=== PATIENT | female | born 1930 | race Caucasian/White ===

== ENCOUNTER 2017-12-22 10:34 | Emergency (ER) | payer MEDICARE ==
[2017-12-22] MEDS ORDERED: SODIUM CHLORIDE 0.9% 500 ML IV STA (11:23)
--- NOTE | 2017-12-22 11:26 | ED ---
General Adult HPI - General Chief complaint: Weakness Stated complaint: weakness Time Seen by Provider: 12/22/17 10:45 Source: patient, EMS, RN notes reviewed Mode of arrival: EMS Limitations: no limitations - History of Present Illness Initial comments: This is an 87-year-old female presents emergency Department complaining of feeling fatigued since Monday. Patient states she is a generally weak and tired. Patient states she has no fever she has no difficulty breathing or shortness of breath. Patient denies any chest pain. Patient denies any abdominal pain patient denies nausea or vomiting. Patient states she has somewhat of a decreased appetite this is still eating. Patient denies any injury or fall. Patient denies any dysuria hematuria urinary frequency. Patient denies headache patient denies numbness weakness - Related Data Home Medications Medication Instructions Recorded Confirmed Acetaminophen Tab [Tylenol Tab] 500 mg PO BID@0700,2100 12/22/17 12/22/17 Aspirin 81 mg PO DAILY@0900 12/22/17 12/22/17 Cholecalciferol [Vitamin D3] 1,000 unit PO DAILY@0900 12/22/17 12/22/17 Glimepiride [Amaryl] 2 mg PO BID@0900,1700 12/22/17 12/22/17 Levothyroxine Sodium [Synthroid] 25 mcg PO DAILY@0700 12/22/17 12/22/17 Losartan Potassium [Cozaar] 100 mg PO DAILY@0900 12/22/17 12/22/17 Multivitamins, Thera [Multivitamin 1 tab PO DAILY@0900 12/22/17 12/22/17 (formulary)] [place]-3 Fatty Acids/Fish Oil [Fish 1 cap PO BID@0900,1700 12/22/17 12/22/17 Oil 1,000 mg Softgel] metFORMIN HCL ER [Glucophage Xr] 500 mg PO DAILY@1700 12/22/17 12/22/17 Allergies Allergy/AdvReac Type Severity Reaction Status Date / Time meperidine [From Demerol] Allergy Unknown Verified 12/22/17 10:51 Sulfa (Sulfonamide Allergy Unknown Verified 12/22/17 10:51 Antibiotics) Review of Systems ROS Statement: Those systems with pertinent positive or pertinent negative responses have been documented in the HPI. ROS Other: All systems not noted in ROS Statement are negative. Past Medical History Past Medical History: Diabetes Mellitus, Hypertension, Osteoarthritis (OA), Thyroid Disorder History of Any Multi-Drug Resistant Organisms: None Reported Past Surgical History: Cholecystectomy, Orthopedic Surgery Additional Past Surgical History / Comment(s): cataract, bilateral knees, neck surgery Past Psychological History: No Psychological Hx Reported Smoking Status: Never smoker Past Alcohol Use History: None Reported Past Drug Use History: None Reported General Exam - General Exam Comments Initial Comments: GENERAL: Patient is well-developed and well-nourished. Patient is nontoxic and well- hydrated and is in no acute distress. ENT: Neck is soft and supple. No significant lymphadenopathy is noted. Oropharynx is clear. Moist mucous membranes. Neck has full range of motion without eliciting any pain. EYES: The sclera were anicteric and conjunctiva were pink and moist. Extraocular movements were intact and pupils were equal round and reactive to light. Eyelids were unremarkable. PULMONARY: Unlabored respirations. Good breath sounds bilaterally. No audible rales rhonchi or wheezing was noted. CARDIOVASCULAR: There is a regular rate and rhythm without any murmurs gallops or rubs. ABDOMEN: Soft and nontender with normal bowel sounds. No palpable organomegaly was noted. There is no palpable pulsatile mass. SKIN: Skin is clear with no lesions or rashes and otherwise unremarkable. NEUROLOGIC: Patient is alert and oriented x3. Cranial nerves II through XII are grossly intact. Motor and sensory are also intact. Normal speech, volume and content. Symmetrical smile. MUSCULOSKELETAL: Normal extremities with adequate strength and full range of motion. No lower extremity swelling or edema. No calf tenderness. LYMPHATICS: No significant lymphadenopathy is noted PSYCHIATRIC: Normal psychiatric evaluation. Limitations: no limitations Course Vital Signs 12/22/17 12/22/17 12/22/17 10:45 11:10 12:46 Temperature 98.4 F 99.2 F Pulse Rate 72 76 Respiratory 16 20 18 Rate Blood Pressure 216/94 196/109 O2 Sat by Pulse 94 L 92 L Oximetry Medical Decision Making - Medical Decision Making EKG shows normal sinus rhythm at 95 bpm. It was 170 QRS is 60 QT interval 358 QTC is 449. Patient's EKG shows no ST segment elevation or depression or T wave abnormalities are noted. - Lab Data Result diagrams: 12/22/17 10:55 12/22/17 10:55 Lab Results 12/22/17 12/22/1712/22/18 Range/Units 10:55 10:55 10:55 WBC 6.0 (3.8-10.6) k/uL RBC 4.78 (3.80-5.40) m/uL Hgb 14.7 (11.4-16.0) gm/dL Hct 43.0 (34.0-46.0) % MCV 89.9 (80.0-100.0) fL MCH 30.8 (25.0-35.0) pg MCHC 34.2 (31.0-37.0) g/dL RDW 14.3 (11.5-15.5) % Plt Count 266 (150-450) k/uL Neutrophils % 72 % Lymphocytes % 18 % Monocytes % 6 % Eosinophils % 2 % Basophils % 0 % Neutrophils # 4.3 (1.3-7.7) k/uL Lymphocytes # 1.1 (1.0-4.8) k/uL Monocytes # 0.4 (0-1.0) k/uL Eosinophils # 0.1 (0-0.7) k/uL Basophils # 0.0 (0-0.2) k/uL Poikilocytosis Slight PT (9.0-12.0) sec INR (<1.2) APTT (22.0-30.0) sec Sodium 138 (137-145) mmol/L Potassium 3.8 (3.5-5.1) mmol/L Chloride 100 (98-107) mmol/L Carbon Dioxide 29 (22-30) mmol/L Anion Gap 9 mmol/L BUN 18 H (7-17) mg/dL Creatinine 0.30 L (0.52-1.04) mg/dL Est GFR (CKD-EPI)AfAm >90 (>60 ml/min/1.73 sqM) Est GFR (CKD-EPI)NonAf >90 (>60 ml/min/1.73 sqM) Glucose 239 H (74-99) mg/dL Plasma Lactic Acid Aly (0.7-2.0) mmol/L Calcium 9.7 (8.4-10.2) mg/dL Magnesium 1.7 (1.6-2.3) mg/dL Total Bilirubin 0.9 (0.2-1.3) mg/dL AST 24 (14-36) U/L ALT 31 (9-52) U/L Alkaline Phosphatase 61 (38-126) U/L Total Creatine Kinase 32 (30-135) U/L CK-MB (CK-2) 1.7 (0.0-2.4) ng/mL CK-MB (CK-2) Rel Index 5.3 Troponin I <0.012 (0.000-0.034) ng/mL Total Protein 6.2 L (6.3-8.2) g/dL Albumin 3.8 (3.5-5.0) g/dL TSH 1.750 (0.465-4.680) mIU/L Free T4 1.29 (0.78-2.19) ng/dL Urine Color Urine Appearance (Clear) Urine pH (5.0-8.0) Ur Specific [employer] (1.001-1.035) Urine Protein (Negative) Urine Glucose (UA) (Negative) Urine Ketones (Negative) Urine Blood (Negative) Urine Nitrite (Negative) Urine Bilirubin (Negative) Urine Urobilinogen (<2.0) mg/dL Ur Leukocyte Esterase (Negative) Urine RBC (0-5) /hpf Urine WBC (0-5) /hpf Ur Squamous Epith Cells (0-4) /hpf Amorphous Sediment (None) /hpf Urine Mucus (None) /hpf 12/22/17 12/22/17 12/22/17 Range/Units 10:55 10:55 12:05 WBC (3.8-10.6) k/uL RBC (3.80-5.40) m/uL Hgb (11.4-16.0) gm/dL Hct (34.0-46.0) % MCV (80.0-100.0) fL MCH (25.0-35.0) pg MCHC (31.0-37.0) g/dL RDW (11.5-15.5) % Plt Count (150-450) k/uL Neutrophils % % Lymphocytes % % Monocytes % % Eosinophils % % Basophils % % Neutrophils # (1.3-7.7) k/uL Lymphocytes # (1.0-4.8) k/uL Monocytes # (0-1.0) k/uL Eosinophils # (0-0.7) k/uL Basophils # (0-0.2) k/uL Poikilocytosis PT 9.7 (9.0-12.0) sec INR 1.0 (<1.2) APTT 22.4 (22.0-30.0) sec Sodium (137-145) mmol/L Potassium (3.5-5.1) mmol/L Chloride (98-107) mmol/L Carbon Dioxide (22-30) mmol/L Anion Gap mmol/L BUN (7-17) mg/dL Creatinine (0.52-1.04) mg/dL Est GFR (CKD-EPI)AfAm (>60 ml/min/1.73 sqM) Est GFR (CKD-EPI)NonAf (>60 ml/min/1.73 sqM) Glucose (74-99) mg/dL Plasma Lactic Acid Aly 1.2 (0.7-2.0) mmol/L Calcium (8.4-10.2) mg/dL Magnesium (1.6-2.3) mg/dL Total Bilirubin (0.2-1.3) mg/dL AST (14-36) U/L ALT (9-52) U/L Alkaline Phosphatase (38-126) U/L Total Creatine Kinase (30-135) U/L CK-MB (CK-2) (0.0-2.4) ng/mL CK-MB (CK-2) Rel Index Troponin I (0.000-0.034) ng/mL Total Protein (6.3-8.2) g/dL Albumin (3.5-5.0) g/dL TSH (0.465-4.680) mIU/L Free T4 (0.78-2.19) ng/dL Urine Color Yellow Urine Appearance Cloudy H (Clear) Urine pH 6.5 (5.0-8.0) Ur Specific [employer] 1.015 (1.001-1.035) Urine Protein Trace H (Negative) Urine Glucose (UA) 1+ H (Negative) Urine Ketones Negative (Negative) Urine Blood Negative (Negative) Urine Nitrite Positive H (Negative) Urine Bilirubin Negative (Negative) Urine Urobilinogen 2.0 (<2.0) mg/dL Ur Leukocyte Esterase Negative (Negative) Urine RBC 2 (0-5) /hpf Urine WBC 2 (0-5) /hpf Ur Squamous Epith Cells <1 (0-4) /hpf Amorphous Sediment Few H (None) /hpf Urine Mucus Rare H (None) /hpf Disposition Clinical Impression: Fatigue, Hypertension Disposition: HOME SELF-CARE Condition: Good Instructions: Fatigue (ED) Is patient prescribed a controlled substance at d/c from ED?: No Referrals: None,Stated [Primary Care Provider] - 1-2 days Time of Disposition: 13:47
[2017-12-22 11:52] LABS: Basophils % (A) 0 %; Eosinophils # (A) 0.1 k/uL (0-0.7); Eosinophils % (A) 2 %; HGB 14.7 gm/dL (11.4-16.0); Lymphocytes # (A) 1.1 k/uL (1.0-4.8); Lymphocytes % (A) 18 %; MCH 30.8 pg (25.0-35.0); MCHC 34.2 g/dL (31.0-37.0); MCV 89.9 fL (80.0-100.0); Mean Platelet Volume 6.4; Monocytes # (A) 0.4 k/uL (0-1.0); Monocytes % (A) 6 %; Neutrophils # (A) 4.3 k/uL (1.3-7.7); Neutrophils % (A) 72 %; Platelet Count 266 k/uL (150-450); Poikilocytosis Slight; RBC 4.78 m/uL (3.80-5.40); RDW 14.3 % (11.5-15.5)
[2017-12-22 12:07] LABS: ALT 31 U/L (9-52); AST 24 U/L (14-36); Albumin 3.8 g/dL (3.5-5.0); Alkaline Phosphatase 61 U/L (38-126); Anion Gap 9 mmol/L; Blood Urea Nitrogen 18 mg/dL (7-17); Calcium 9.7 mg/dL (8.4-10.2); Carbon Dioxide 29 mmol/L (22-30); Chloride 100 mmol/L (98-107); Glucose 239 mg/dL (74-99); Magnesium 1.7 mg/dL (1.6-2.3); Potassium 3.8 mmol/L (3.5-5.1); Sodium 138 mmol/L (137-145); Total Bilirubin 0.9 mg/dL (0.2-1.3); Total Protein 6.2 g/dL (6.3-8.2)
[2017-12-22 12:12] LABS: Creatine Kinase 32 U/L (30-135)
[2017-12-22 12:22] LABS: T4, Free (Free Thyroxine) 1.29 ng/dL (0.78-2.19)
[2017-12-22 12:26] LABS: Creatine Kinase MB 1.7 ng/mL (0.0-2.4); Troponin I <0.012 ng/mL (0.000-0.034)
[2017-12-22 12:28] LABS: Partial Thromboplastin Time 22.4 sec (22.0-30.0); Prothrombin Time 9.7 sec (9.0-12.0)
[2017-12-22 12:28] LABS: Amorphous Sediment,Urine Few /hpf; Appearance,Urine Cloudy (Clear); Bilirubin,Urine Negative (Negative); Blood,Urine Negative (Negative); Color,Urine Yellow; Glucose,Urine (UA) 1+ (Negative); Ketones,Urine Negative (Negative); Leukocyte Esterase,Urine Negative (Negative); Mucus,Urine Rare /hpf; Nitrite,Urine Positive (Negative); PH, Urine 6.5 (5.0-8.0); Protein,Urine Trace (Negative); RBC,Urine 2 /hpf (0-5); Specific Gravity,Urine 1.015 (1.001-1.035); Squamous Epithelial Cell,Urine <1 /hpf (0-4); WBC,Urine 2 /hpf (0-5)
--- NOTE | 2017-12-22 12:35 | XR ---
EXAMINATION TYPE: XR chest 2V DATE OF EXAM: 12/22/2017 COMPARISON: NONE HISTORY: Lethargic and weakness with epigastric pain TECHNIQUE: Frontal and lateral views of the chest are obtained. FINDINGS: Minimal right basilar linear subsegmental atelectasis seen at the right hemidiaphragm. The re is no focal air space opacity, pleural effusion, or pneumothorax seen. The cardiac silhouette siz e is upper limits of normal. There is diffuse osseous demineralization with poor visualization of the thoracic spine. Right acromioclavicular arthropathy is noted. Healed posterior right upper rib fract ures are noted. There is pulmonary hyperinflation suggesting underlying COPD. IMPRESSION: Minimal right basilar subsegmental atelectasis otherwise no acute cardiopulmonary proces s.
[2017-12-22] MEDS: hydrALAZINE HCL 20 MG/ML 1 ML VIAL IVP STA ×2 (12:43→13:37)
[2017-12-22 12:48] VITALS: BP 196/109; PULSE 76; RESP 18; TEMP 99.2
== END 2017-12-22 15:50 | disposition home or self-care (01) ==
LOC: EC 10:34
DX: I10 Essential (primary) hypertension (principal); R53.83 Other fatigue; R53.1 Weakness; R63.8 Other symptoms and signs concerning food and fluid intake; E11.9 Type 2 diabetes mellitus without complications; M19.90 Unspecified osteoarthritis, unspecified site; E07.9 Disorder of thyroid, unspecified; Z79.82 Long term (current) use of aspirin; Z79.84 Long term (current) use of oral hypoglycemic drugs; Z79.891 Long term (current) use of opiate analgesic; Z79.899 Other long term (current) drug therapy; Z88.2 Allergy status to sulfonamides; Z88.5 Allergy status to narcotic agent
CPT/HCPCS: 36415; 93005; 84439; 80053; 82550; 82553; 83605; 83735; 84443; 84484; 85025; 85610; 85730; 81001; 87086; 87077; 87186; 71046; 99285; 96374; 96376; 96361; J0360

== ENCOUNTER 2018-02-21 22:31 | Inpatient (IN) | payer MEDICARE ==
[2018-02-21] MEDS ORDERED: NALOXONE 0.4 MG/ML 1 ML VIAL IV PRN (23:05)
--- NOTE | 2018-02-21 23:12 | ED ---
General Adult HPI - General Chief complaint: Extremity Injury, Lower Stated complaint: Lt Femur Fracture Time Seen by Provider: 02/21/18 22:36 Source: patient, EMS, RN notes reviewed, old records reviewed (Transfer records reviewed) Mode of arrival: EMS Limitations: no limitations - History of Present Illness Initial comments: Patient is a pleasant 87-year-old female presenting to the emergency Department as a transfer from [facility]. Patient did have a fall when she slid out of the chair after lunch today. Patient complains of discomfort above her left knee. Patient was not able to ambulate following the fall. Patient does have history of previous left knee surgery. Patient states she did sustain laceration of the left ear which was repaired. Patient did have evaluation done at [facility] including computed tomography scan of the head and chest. Chest CT does have some concern for pneumonia. Patient does not meet sepsis criteria. Patient denies any cough or dyspnea. - Related Data Home Medications Medication Instructions Recorded Confirmed Acetaminophen Tab [Tylenol Tab] 500 mg PO BID@0700,2100 12/22/17 12/22/17 Aspirin 81 mg PO DAILY@0912/22/17 12/22/17 Cholecalciferol [Vitamin D3] 1,000 unit PO DAILY@0912/22/17 12/22/17 Glimepiride [Amaryl] 2 mg PO BID@0900,1700 12/22/17 12/22/17 Levothyroxine Sodium [Synthroid] 25 mcg PO DAILY@0700 12/22/17 12/22/17 Losartan Potassium [Cozaar] 100 mg PO DAILY@0912/22/17 12/22/17 Multivitamins, Thera [Multivitamin 1 tab PO DAILY@0912/22/17 12/22/17 (formulary)] [place]-3 Fatty Acids/Fish Oil [Fish 1 cap PO BID@0900,1700 12/22/17 12/22/17 Oil 1,000 mg Softgel] metFORMIN HCL ER [Glucophage Xr] 500 mg PO DAILY@1700 12/22/17 12/22/17 Allergies Allergy/AdvReac Type Severity Reaction Status Date / Time meperidine [From Demerol] Allergy Unknown Verified 02/21/18 22:39 Sulfa (Sulfonamide Allergy Unknown Verified 02/21/18 22:39 Antibiotics) Review of Systems ROS Statement: Those systems with pertinent positive or pertinent negative responses have been documented in the HPI. ROS Other: All systems not noted in ROS Statement are negative. Constitutional: Denies: fever Eyes: Denies: eye pain ENT: Denies: ear pain Respiratory: Denies: cough Cardiovascular: Denies: chest pain Endocrine: Denies: fatigue Gastrointestinal: Denies: abdominal pain Genitourinary: Denies: dysuria Musculoskeletal: Denies: back pain Skin: Denies: rash Neurological: Denies: weakness Past Medical History Past Medical History: Diabetes Mellitus, Hypertension, Osteoarthritis (OA), Thyroid Disorder Additional Past Medical History / Comment(s): pneumonia, UTI 02/21/18 History of Any Multi-Drug Resistant Organisms: None Reported Past Surgical History: Cholecystectomy, Orthopedic Surgery Additional Past Surgical History / Comment(s): cataract, bilateral knees, neck surgery Past Psychological History: No Psychological Hx Reported Smoking Status: Never smoker Past Alcohol Use History: None Reported Past Drug Use History: None Reported General Exam Limitations: no limitations General appearance: alert, in no apparent distress Head exam: Present: normocephalic Eye exam: Present: normal appearance, PERRL ENT exam: Present: normal oropharynx, other (Left ear laceration) Neck exam: Present: normal inspection. Absent: tenderness Respiratory exam: Present: normal lung sounds bilaterally Cardiovascular Exam: Present: regular rate, normal rhythm Expanded Peripheral pulses: 2+: Dorsalis Pedis (R), Dorsalis Pedis (L) GI/Abdominal exam: Present: soft. Absent: tenderness Extremities exam: Present: other (Knee immobilizer present on left leg. Patient does have tenderness just above the left knee.) Neurological exam: Present: alert, oriented X3, CN II-XII intact. Absent: motor sensory deficit Psychiatric exam: Present: normal affect, normal mood Skin exam: Present: normal color Course Vital Signs 02/21/18 22:37 Temperature 99.2 F Pulse Rate 87 Respiratory 18 Rate Blood Pressure 162/93 O2 Sat by Pulse 97 Oximetry Medical Decision Making - Medical Decision Making Patient was made aware of plan. Patient states her primary care physician is Dr. Dey, who took over for Dr. Miranda. Case was discussed with practitioner next, who will admit for Dr. Bowen with medical consult. Dr. Moon will be consult at secondary to covering for Dr. Miranda. Disposition Clinical Impression: Femoral distal fracture Disposition: ADMITTED IP TO THIS HOSP Is patient prescribed a controlled substance at d/c from ED?: No Referrals: Nonstaff,Physician [Primary Care Provider] - 1-2 days Decision Time: 23:12
--- NOTE | 2018-02-22 00:08 | CT ---
EXAMINATION TYPE: CT knee LT wo con DATE OF EXAM: 02/21/2018 COMPARISON: None HISTORY: left distal femur fracture CT DLP: 238.8 mGycm Automated exposure control for dose reduction was used. FINDINGS: Multiple axial sections were obtained from the distal femur to the proximal tibia with no contrast. There is nondisplaced oblique fracture through the distal shaft of the left femur. There is left knee prosthesis which appears in anatomic position. Fracture line extends to the medial femoral metaphysi s. I do not see fracture line involving the prosthesis. There is metal artifact obscuring the bone de tail at the prosthesis. The proximal tibia and fibula appear intact. There is generalized osteopenia. There is vascular calcification. There is knee joint effusion with fluid level consistent with hemar throsis. IMPRESSION: NONDISPLACED FRACTURE DISTAL SHAFT OF THE FEMUR EXTENDING TO THE METAPHYSIS. KNEE JOINT MODERATE SIZE D EFFUSION WITH HEMARTHROSIS.
[2018-02-22] MEDS: MORPHINE SULFATE 4 MG/ML SYRINGE IV PRN ×3 (02:47→17:32)
[2018-02-22] MEDS: SODIUM CHLORIDE 0.9% 1,000 ML IV SCH ×2 (02:47→21:09)
[2018-02-22 04:00] VITALS: BMI 20.5
[2018-02-22 07:14] LABS: Glucose,Whole Blood 340 mg/dL (75-99)
[2018-02-22] MEDS ORDERED: INSULIN ASPART 100 UNIT/ML 1 ML 10 ML VIAL SQ SCH (07:45)
[2018-02-22] MEDS: PANTOPRAZOLE 40 MG/10 ML VIAL IV SCH (09:10)
[2018-02-22 11:49] LABS: Glucose,Whole Blood 210 mg/dL (75-99)
[2018-02-22] MEDS: INSULIN ASPART 100 UNIT/ML 1 ML 10 ML VIAL SQ SCH ×3 (13:05→21:09)
--- NOTE | 2018-02-22 14:00 | P.HPOR ---
History of Present Illness H&P Date: 02/22/18 Chief Complaint: Left distal femur fracture Patient is an 87-year-old female who initially presented to [facility] for evaluation of the left leg injury. Patient initially injured the leg while at home. She states that she fell out of her chair and landed on the left side. She was unable to weight-bear. EMS brought her to the hospital. Initial x-rays that were taken revealed a minimally displaced left distal femur fracture. Patient has a history of a left total knee arthroplasty that was done many years ago. I was contacted by the emergency room staff at [facility], there was transferred the patient over due to no orthopedic coverage. I was able to review the case and discussed my attending Dr. Cabello. We did accept the transfer as admitting providers. After arriving [facility], patient did have computed tomography scan of the right knee done for further evaluation of the fracture. Consults were placed to internal medicine for surgical clearance. Patient is evaluated today at bedside, she is resting comfortably. She has a knee immobilizer in place. She notes discomfort in the left leg when she attempts to move it. She denies any discomfort involving the right lower extremity, bilateral upper extremities. She denies any new onset cervical, thoracic or lumbar pain. She cannot perform of the exact date of the left total knee arthroplasty. I did speak with her daughter, she believes the surgery was back in early 1999. Review of Systems Constitutional: Reports as per HPI Past Medical History Past Medical History: Diabetes Mellitus, Hypertension, Osteoarthritis (OA), Thyroid Disorder Additional Past Medical History / Comment(s): pneumonia, UTI 02/21/18 History of Any Multi-Drug Resistant Organisms: None Reported Past Surgical History: Cholecystectomy, Orthopedic Surgery Additional Past Surgical History / Comment(s): cataract, bilateral knees, neck surgery Past Psychological History: No Psychological Hx Reported Smoking Status: Never smoker Past Alcohol Use History: None Reported Past Drug Use History: None Reported - Past Family History Father History Unknown: Yes Mother History Unknown: Yes Medications and Allergies Home Medications Medication Instructions Recorded Confirmed Type Acetaminophen Tab [Tylenol Tab] 500 mg PO BID@0700,2100 12/22/17 02/21/18 History Aspirin 81 mg PO DAILY@0900 12/22/17 02/21/18 History Cholecalciferol [Vitamin D3] 1,000 unit PO DAILY@0900 12/22/17 02/21/18 History Glimepiride [Amaryl] 2 mg PO BID@0900,1700 12/22/17 02/21/18 History Levothyroxine Sodium [Synthroid] 25 mcg PO DAILY@0700 12/22/17 02/21/18 History Losartan Potassium [Cozaar] 100 mg PO DAILY@0900 12/22/17 02/21/18 History Multivitamins, Thera [Multivitamin 1 tab PO DAILY@0900 12/22/17 02/21/18 History (formulary)] [place]-3 Fatty Acids/Fish Oil [Fish 1 cap PO BID@0900,1700 12/22/17 02/21/18 History Oil 1,000 mg Softgel] metFORMIN HCL ER [Glucophage Xr] 500 mg PO DAILY@1700 12/22/17 02/21/18 History Allergies Allergy/AdvReac Type Severity Reaction Status Date / Time meperidine [From Demerol] Allergy Unknown Verified 02/21/18 23:11 Sulfa (Sulfonamide Allergy Unknown Verified 02/21/18 23:11 Antibiotics) Physical Examination Left lower extremity: Immobilizer is in good position, I did remove this slightly to examine the leg. Some soft tissue swelling noted of the distal femur just proximal to the knee. No obvious open lesions or sores, no areas of ecchymosis present Pain is reproduced around the knee and distal femur with range of motion Herbert of and discomfort involving the left hip No pain around the foot or ankle Calf is soft, no tenderness with palpation Plantar flexion, dorsiflexion, EHL, FHL are intact Dorsal pedis pulses 2+, sensory exam light touch is intact rotation extremity Results - Labs Labs: Abnormal Lab Results - Last 24 Hours (Table) 02/22/18 02/22/18 Range/Units 07:12 11:47 POC Glucose (mg/dL) 340 H 210 H (75-99) mg/dL - Diagnostic results Knee CT: report reviewed, image reviewed Assessment and Plan Plan: Imaging: Computed tomography scan of the knee was reviewed images do demonstrate a minimally displaced left distal femur fracture. The knee implant seems to be stable at this time. Assessment: 1. Minimally displaced left distal femur fracture 2. Status post fall from chair 3. History appears left total knee arthroplasty, implants appear stable 4. Other medical comorbidities Plan: I was able to discuss the case, including the physical exam findings and imaging studies my attending Dr. Cabello. At this time, we are trying to obtain the operative report from the left total knee arthroplasty to see exactly what implant is in there. We would like to proceed with a intramedullary nail of the left distal femur depending on the implant. If we are unable to locate the operative report, plan is to use live fluoroscopy at surgery to examine the knee implant. I am nail is unachievable, our plan will be for long leg casting. I was able to discuss the risk and benefits procedure with both patient and the family at bedside today, they're in agreement some light proceed. Obtain consent Continue use of knee immobilizer at this time, nonweightbearing left lower extremity Pain control GI and DVT prophylaxis, subcu medication, we'll discontinue her surgery and resume after surgery Medical clearance Plan is for surgery on 02/24/2018. Further recommendations to follow Time with Patient: Less than 30
[2018-02-22 14:41] LABS: Basophils % (A) 0 %; Eosinophils # (A) 0.1 k/uL (0-0.7); Eosinophils % (A) 1 %; HCT 30.6 % (34.0-46.0); Hyperchromasia Slight; Lymphocytes # (A) 1.3 k/uL (1.0-4.8); Lymphocytes % (A) 13 %; MCH 32.1 pg (25.0-35.0); Mean Platelet Volume 6.5; Monocytes # (A) 0.8 k/uL (0-1.0); Monocytes % (A) 8 %; Neutrophils % (A) 77 %; Platelet Count 259 k/uL (150-450); Poikilocytosis Slight; RBC 3.44 m/uL (3.80-5.40); RDW 14.8 % (11.5-15.5); WBC 10.4 k/uL (3.8-10.6)
[2018-02-22 14:53] LABS: ALT 21 U/L (9-52); AST 17 U/L (14-36); Albumin 3.1 g/dL (3.5-5.0); Alkaline Phosphatase 49 U/L (38-126); Anion Gap 8 mmol/L; Blood Urea Nitrogen 24 mg/dL (7-17); Calcium 8.8 mg/dL (8.4-10.2); Carbon Dioxide 27 mmol/L (22-30); Chloride 101 mmol/L (98-107); Glucose 167 mg/dL (74-99); Potassium 3.8 mmol/L (3.5-5.1); Sodium 136 mmol/L (137-145); Total Protein 5.5 g/dL (6.3-8.2)
[2018-02-22 14:57] LABS: Prothrombin Time 9.7 sec (9.0-12.0)
[2018-02-22] MEDS: LEVOTHYROXINE 25 MCG TAB PO SCH (15:25)
[2018-02-22] MEDS: metFORMIN 500 MG TAB PO SCH (17:11)
[2018-02-22] MEDS: LOSARTAN 50 MG TAB PO SCH (17:11)
[2018-02-22] MEDS: ENOXAPARIN 40 MG/0.4 ML SYRINGE SQ SCH (17:11)
[2018-02-22] MEDS: GLIMEPIRIDE 2 MG TAB PO SCH (17:12)
[2018-02-22 17:41] LABS: Glucose,Whole Blood 194 mg/dL (75-99)
[2018-02-22 20:29] LABS: Glucose,Whole Blood 248 mg/dL (75-99)
--- NOTE | 2018-02-23 00:35 | XR ---
EXAMINATION TYPE: XR chest 1V DATE OF EXAM: 02/22/2018 COMPARISON: 12/22/2017 HISTORY: Preop. Femur fracture. TECHNIQUE: Single frontal view of the chest is obtained. FINDINGS: There is some infiltrate at the left lung base. There is no heart failure. There is mild a telectasis right lower lobe. Thoracic aorta is atheromatous. IMPRESSION: There is increasing left basilar pulmonary infiltrate and fluid compared to last exam. N o heart failure seen. Thoracic dextroscoliosis.
[2018-02-23] MEDS: SODIUM CHLORIDE 0.9% 1,000 ML IV SCH ×2 (04:07→19:52)
[2018-02-23 07:31] LABS: Glucose,Whole Blood 168 mg/dL (75-99)
[2018-02-23] MEDS: INSULIN ASPART 100 UNIT/ML 1 ML 10 ML VIAL SQ SCH ×4 (08:06→20:55)
[2018-02-23] MEDS: LEVOTHYROXINE 25 MCG TAB PO SCH (08:06)
[2018-02-23] MEDS: PANTOPRAZOLE 40 MG/10 ML VIAL IV SCH (09:27)
[2018-02-23] MEDS: GLIMEPIRIDE 2 MG TAB PO SCH ×2 (09:28→17:18)
[2018-02-23] MEDS: metFORMIN 500 MG TAB PO SCH ×2 (09:28→17:18)
[2018-02-23] MEDS: LOSARTAN 50 MG TAB PO SCH (09:33)
[2018-02-23] MEDS: MULTIVITAMINS, THERA 1 EACH TAB PO SCH (09:34)
--- NOTE | 2018-02-23 10:45 | CONS ---
CONSULTATION DATE OF CONSULTATION: 02/22/2018 REASON FOR CONSULTATION: Medical management requested by Dr. Cabello. CONSULTATION: This is a pleasant 87-year-old patient who follows by Dr. Danial Dey under Dr. Miranda's office. The patient is a resident of [facility] which is an Assisted Living. Normally uses a walker to putter around. Patient's chronic stable medical conditions include diabetes, hypertension, osteoarthritis, hypothyroid. Patient is reasonable with her memory. Daughter is present at the bedside. Patient did take a fall by sliding of the chair and patient developed nondisplaced oblique fracture to the distal shaft of the left femur. The left knee has a prosthesis that appears to be a hemarthrosis. Patient has no cardiac history. Of course, exercise tolerance is very limited. There is no chest pain or shortness of breath. Dr. Cabello is planning for surgery tomorrow. Care was discussed with the patient's daughter at the bedside. Patient herself can answer some simple questions. Her history is somewhat limited. Patient does feel a bit tired and some pain in the left femur. REVIEW OF SYSTEMS: CONSTITUTIONAL: Tired. HEENT: Decreased hearing. RESPIRATORY: None. CARDIOVASCULAR: None. GASTROINTESTINAL: None. GENITOURINARY: Some incontinence. DERMATOLOGICAL: None. HEMATOLOGICAL: None. , LYMPHATICS: : None. PSYCHIATRY: Forgetful. NEUROLOGICAL: Uses a walker. MUSCULOSKELETAL: Pain in many joints, especially in the left femur and wrist. PAST MEDICAL HISTORY: Diabetes, hypertension, osteoarthritis, hypothyroid, UTIs, gait dysfunction. PAST SURGICAL HISTORY: Cholecystectomy, bilateral knees, cataract surgery, neck surgery. SOCIAL HISTORY: No smoking, no alcohol, currently a resident of [facility], uses a walker. FAMILY HISTORY: Reviewed, noncontributory to presentation. HOME MEDICATIONS: 1. Glucophage XR 500 mg p.o. daily 5 pm. 2. Fish oil 1 capsule p.o. b.i.d. 3. Multivitamin tablet p.o. daily. 4. Cozaar 100 mg p.o. daily. 5. Synthroid 25 mcg p.o. daily. 6. Amaryl 2 mg p.o. b.i.d. 7. Vitamin D3 one thousand units p.o. daily. 8. Aspirin 81 mg p.o. daily. 9. Tylenol 500 mg p.o. b.i.d. ALLERGIES: To MEPERIDINE and SULFA. PHYSICAL EXAMINATION: Vital signs on presentation, temperature 98.7, pulse 89, respiration 16, blood pressure 142/80, pulse ox 98% on room air. GENERAL APPEARANCE: Thin build, sitting up, awake, tired. EYES: Pupils equal, conjunctivae are normal. HEENT: External appearance of nose and ears normal. Oral cavity normal. NECK: JVD not raised. Mass not palpable. RESPIRATORY EFFORT: Normal. LUNGS: Slightly decreased breath sounds. CARDIOVASCULAR: First and second sounds are normal, no edema. ABDOMEN: Soft, nontender. Liver and spleen not palpable. LYMPHATIC: No lymph nodes palpable in neck or axillae. PSYCHIATRY: Patient can answer some simple questions. NEUROLOGICAL: Pupils equal, no facial asymmetry. MUSCULOSKELETAL: Evidence of osteoarthritis especially in the hands. Limited range of motion of the left leg. INVESTIGATIONS: White count 10.4, hemoglobin 11, potassium 3.8, BUN 24, creatinine 0.41. Accu-Cheks are noted 340, 154, 210. ASSESSMENT: 1. Left femur fracture, not displaced secondary to fall with hemarthrosis secondary to same. 2. Chronic gait dysfunction uses a walker. 3. Diabetes mellitus type 2 on oral hypoglycemic. 4. Essential hypertension. 5. Primary osteoarthritis of multiple joints. 6. Moderate cognitive impairment due to late onset Alzheimer's dementia. PLAN: From a cardiovascular risk assessment, the patient is a moderate risk given her age diet, though there is no cardiac or respiratory symptoms, but the patient has a very limited exercise tolerance. Because of no active cardiac symptoms, no further intervention is to be done. Patient's aspirin has to be held off preoperatively. Accu- Cheks to be closely followed. I did discuss with the patient the patient's daughter. Given her age, the patient is a high risk for all complications including pulmonary, cardiac, and surgical complications. She understands the same. Patient otherwise has no other complications of surgery. May proceed for the same and daughter is okay with the same. Thank you Dr. Cabello. SU / JASKARAN: [id number] /
[2018-02-23] MEDS: ENOXAPARIN 40 MG/0.4 ML SYRINGE SQ SCH (11:11)
--- NOTE | 2018-02-23 12:26 | P.PN ---
Progress Note - Text Progress Note Date: 02/23/18 Patient is evaluated today bedside, her daughter is present. She is resting comfortably. The immobilizer remains in good position and condition. Pain is controlled at this time. Plan is for surgery on 02/24/2018. Patient has been cleared by medical for surgery. Further recommendations to follow after surgery.
--- NOTE | 2018-02-23 12:30 | PN ---
PROGRESS NOTE DATE OF SERVICE: 02/23/2018 PRESENTING COMPLAINT: Left femur fracture. INTERVAL HISTORY: This is a patient with left femur fracture, pending surgery today. Lying in bed, not in significant pain. No chest pain or shortness of breath, n.p.o. Daughter is at the bedside. REVIEW OF SYSTEMS: Done for constitutional, cardiovascular, GI, pulmonary, musculoskeletal; relevant findings as above. CURRENT MEDICATIONS: Reviewed. PHYSICAL EXAMINATION: Temperature 99.3, pulse 84, respiration 20, blood pressure 149/66, pulse ox 97% on 2 L. GENERAL APPEARANCE: Lying in bed, awake. EYES: Pupils equal, conjunctivae normal. HEENT: External appearance of nose and ears normal, oral cavity normal, decreased hearing. NECK: JVD not raised. Mass not palpable. RESPIRATORY: Effort normal. LUNGS: Decreased breath sounds. CARDIOVASCULAR: First and second sounds, no edema. ABDOMEN: Soft, nontender, liver and spleen not palpable. PSYCHIATRY: Awake, answering simple questions. INVESTIGATIONS: Accu-Cheks are noted. Chest x-ray personally reviewed by me shows mild cardiomegaly, that is a supine film. Some unfolding of the outline calcification in the aorta. MMODL / IJN: [id number] /
[2018-02-23 12:36] LABS: Glucose,Whole Blood 190 mg/dL (75-99)
--- NOTE | 2018-02-23 12:42 | PN ---
PROGRESS NOTE DATE OF SERVICE: 02/23/2018 PRESENTING COMPLAINT: Left femur fracture. INTERVAL HISTORY: This patient presented with a fall and fracture of the left femur, pending surgery this morning. Pain is controlled. Patient is n.p.o. No chest pain or short of breath. Lying in bed, comfortable. No new issues. Daughter is at the bedside. REVIEW OF SYSTEMS: Done for constitutional, cardiovascular, GI, pulmonary, musculoskeletal; relevant findings as above. CURRENT MEDICATIONS: Reviewed. PHYSICAL EXAMINATION: Temperature 99.3, pulse 84, respiration 20, blood pressure 149/66, pulse ox 97% on 2 L. GENERAL APPEARANCE: Propped up, awake, comfortable. EYES: Pupils equal, conjunctivae are normal. HEENT: External appearance of nose and ears normal, oral cavity normal. NECK: JVD not raised. Mass not palpable. RESPIRATORY: Effort normal. LUNGS: Slightly decreased breath sounds. CARDIOVASCULAR: First and second sounds are normal, no edema. ABDOMEN: Soft, nontender, liver and spleen not palpable. PSYCHIATRY: Patient able to answer simple questions. INVESTIGATIONS: White count 10.4, hemoglobin 11, potassium 3.8, BUN 24, creatinine 0.41. Chest x-ray personally reviewed by me, is a portable film, unfolded out are some calcification in the knuckle, slight cardiomegaly. EKG tracing personally reviewed by me showed normal sinus rhythm, some nonspecific findings. ASSESSMENT: 1. Left distal femur fracture, not displaced, secondary to fall, pending surgery. 2. Chronic gait dysfunction, uses a walker. 3. Diabetes mellitus type 2. 4. Hypoglycemic. 5. Essential hypertension. 6. Primary osteoarthritis in multiple joints. 7. Moderate cognitive impairment due to late onset Alzheimer's dementia. PLAN: Continue current medication and treatment plan. Care was discussed with daughter at the bedside, awaiting surgery. MMODL / IJN: [id number] /
--- NOTE | 2018-02-23 13:38 | CDI ---
Last Revision, April 2017 Documentation Clarification Form Date: 02/23/2018 1:27:27 PM From: Shama VictorChaoCHAUNCEY, CCDS Admit Date: 02/21/2018 11:05:00 PM Patient Name: Maddie Young Visit Number: [id number] Discharge Date: ATTENTION: The Clinical Documentation Specialists (CDI) and [facility] Coding Staff appreciate your assistance in clarifying documentation. Please respond to the clarification below the line at the bottom and electronically sign. The CDI & [facility] Coding staff will review the response and follow-up if needed. Please note: Queries are made part of the Legal Health Record. If you have any questions, please contact the author of this message via ITS. Julio Schreiber MD/Jose Huitron The patient has Diabetes Mellitus II, as indicated in your medical management consult & your 02/22 progress note. Also documented hypoglycemic. History/Risk Factors: DM II, Chronic gait dysfunction, Primary OA multiple joints, Moderate cognitive impairment with late onset Alzheimers dementia. Clinical Indicators: Admitted from [facility] after sliding out of a chair & suffering a fracture to the left distal femur. Treatment: Pending surgery for fractured hip, Insulin sq, IV Ms, IV fluids. Please clarify if you are diagnosing & treating the patient for: Diabetes Mellitus II With Hypoglycemia With Hyperglycemia Other, please specify Unable to determine with hyperglycemia MTDD
[2018-02-23 17:16] LABS: Glucose,Whole Blood 186 mg/dL (75-99)
[2018-02-23 20:38] LABS: Glucose,Whole Blood 316 mg/dL (75-99)
[2018-02-23 21:25] LABS: Appearance,Urine Cloudy (Clear); Bilirubin,Urine Negative (Negative); Blood,Urine Small (Negative); Budding Yeast,Urine Occasional /hpf; Color,Urine Yellow; Glucose,Urine (UA) Negative (Negative); Ketones,Urine 1+ (Negative); Leukocyte Esterase,Urine Large (Negative); Mucus,Urine Moderate /hpf; Nitrite,Urine Negative (Negative); PH, Urine 5.5 (5.0-8.0); Protein,Urine 1+ (Negative); RBC,Urine 57 /hpf (0-5); Squamous Epithelial Cell,Urine 4 /hpf (0-4); WBC,Urine 178 /hpf (0-5)
[2018-02-24] MEDS: SODIUM CHLORIDE 0.9% 1,000 ML IV SCH ×2 (05:43→18:13)
[2018-02-24 07:03] LABS: Glucose,Whole Blood 213 mg/dL (75-99)
[2018-02-24] MEDS: GLIMEPIRIDE 2 MG TAB PO SCH ×2 (08:03→18:12)
[2018-02-24] MEDS: metFORMIN 500 MG TAB PO SCH ×2 (08:04→18:12)
[2018-02-24] MEDS: LEVOTHYROXINE 25 MCG TAB PO SCH (08:04)
[2018-02-24] MEDS: LOSARTAN 50 MG TAB PO SCH (08:18)
[2018-02-24] MEDS: INSULIN ASPART 100 UNIT/ML 1 ML 10 ML VIAL SQ SCH ×4 (08:18→21:39)
[2018-02-24] MEDS: MULTIVITAMINS, THERA 1 EACH TAB PO SCH (08:19)
[2018-02-24] MEDS: PANTOPRAZOLE 40 MG TABLET PO SCH (08:19)
[2018-02-24 11:18] LABS: Glucose,Whole Blood 130 mg/dL (75-99)
[2018-02-24] MEDS ORDERED: fentaNYL (PF) 50 MCG/ML 2 ML AMP ONE (12:06)
[2018-02-24] MEDS ORDERED: PROPOFOL 10 MG/ML 20 ML VIAL IV ONE (12:06)
[2018-02-24] MEDS ORDERED: KETAMINE 10 MG/ML 20 ML VIAL ONE (12:06)
[2018-02-24] MEDS ORDERED: SODIUM CHLORIDE 0.9% 1,000 ML IV ONE (12:06)
[2018-02-24] MEDS ORDERED: MIDAZOLAM 2 MG/2 ML VIAL ONE (12:06)
[2018-02-24] MEDS ORDERED: ceFAZolin 1,000 MG VIAL IVPB ONE (12:51)
[2018-02-24] MEDS ORDERED: ceFAZolin 1,000 MG in SODIUM CHLORIDE 0.9% 1,000 ML IRRIGATION ONE (12:52)
[2018-02-24] MEDS ORDERED: LACTATED RINGERS 1,000 ML IV ONE (13:24)
--- NOTE | 2018-02-24 14:41 | P.OP ---
Date of Procedure: 02/24/18 Preoperative Diagnosis: Displaced left periprosthetic distal femur fracture Postoperative Diagnosis: Same Procedure(s) Performed: Retrograde intramedullary nailing left periprosthetic distal femur fracture Implants: [employer] 10 mm x 30 cm retrograde femoral nail Anesthesia: spinal Surgeon: Pedro Cabello R D Manager #1: Kameron Dawson Estimated Blood Loss (ml): 100 Pathology: none sent Condition: stable Disposition: PACU Indications for Procedure: The patient's an 87-year-old female who presents after falling injuring her left leg. Upon evaluation she is noted have mildly displaced left periprosthetic distal femur fracture. A discussion of the risks and benefits of operative intervention was made with the patient and her family. She opted to proceed with surgery. Operative risks to include infection, neurovascular injury, development of blood clots, possible development of nonunion/malunion and need for subsequent procedures was discussed. Informed consent was obtained. Operative Findings: As below Description of Procedure: The patient was brought to the operating room, and after induction of spinal anesthesia the left lower extremity was prepped and draped in normal fashion. Fluoroscopy was used at this point and it was noted that significantly increased displacement occurred during the prepping portion of the procedure. An 8 cm anterior incision was made. The skin and subcutaneous tissues were divided sharply. Electrocautery was used for hemostasis. A medial parapatellar arthrotomy was performed. The patella was retracted laterally. The intercondylar notch was identified. There was a large portion of cement in the notch that was released with an osteotome. This one up the femoral canal. A guidewire was inserted in the center portion of the distal femur on the AP and lateral views. The entry reamer was then used to the appropriate depth. The ball-tipped guidewire was inserted. The canal was reamed up to 12 mm. A 10 mm x 30 cm retrograde nail was inserted over the guidewire. The guidewire was then removed. This was locked distally with 2 locking screws of the appropriate length. Proximally 2 locking screws were placed using freehand technique. Final fluoroscopic view showed adequate alignment of this comminuted periprosthetic distal femur fracture and placement of the intramedullary nail. The wounds were irrigated with normal saline. The medial parapatellar arthrotomy was closed with interrupted #2 Ethibond suture. The subcutaneous tissues were reapproximated with interrupted 2-0 Vicryl sutures. The skin was reapproximated with robert. A sterile dressing was applied in addition to a knee immobilizer. The patient was awoken from sedation and transferred to recovery room in fair condition. Blood loss was estimated at 100 mL. No complications were incurred. Sponge and needle counts were correct at the end the case.
[2018-02-24 15:05] LABS: Glucose,Whole Blood 183 mg/dL (75-99)
--- NOTE | 2018-02-24 15:39 | FL ---
EXAMINATION TYPE: FL guidance operating room, XR femur LT DATE OF EXAM: 02/24/2018 CLINICAL HISTORY: Left knee fracture. TECHNIQUE: Fluoroscopy. Intraoperative 2 views left femur COMPARISON: Outside CT left knee 3 days ago.. FINDINGS: Fluoroscopic guidance was provided during open reduction internal fixation procedure perfo rmed by Dr. Cabello. A total of 72 seconds of fluoroscopic time was utilized during the procedure and 3 spot intraoperative images are acquired. Intraoperative images acquired show placement of large metallic gina with 2 distal transverse screws t hrough comminuted fracture distal femoral metadiaphysis, metallic hardware from left knee arthroplast y remains present. There is slightly more anterior positioning of distal femur on intraoperative imag es saved versus outside CT. IMPRESSION: As Above.
[2018-02-24] MEDS: MORPHINE SULFATE 4 MG/ML SYRINGE IV PRN (15:50)
[2018-02-24 17:17] LABS: Glucose,Whole Blood 215 mg/dL (75-99)
--- NOTE | 2018-02-24 17:17 | P.PN ---
Subjective This is a pleasant 87 years old female with past medical history of diabetes mellitus, essential hypertension, osteoarthritis, hypothyroidism, who presents because of fall and fracture of left femur status post intramedullary nailing of the left distal femur fracture on 02/25/2018. Patient lying in bed comfortable not in distress. Patient denies chest pain. No dyspnea. No change in urine or bowel habits. No fever Objective - Vital Signs Vital signs: Vital Signs Temp 97.6 F 02/24/18 15:30 Pulse 79 02/24/18 15:30 Resp 16 02/24/18 15:30 BP 171/68 02/24/18 15:30 Pulse Ox 92 L 02/24/18 15:30 Intake & Output 02/23/18 02/24/18 02/24/18 18:59 06:59 18:59 Intake Total 800 901 Output Total 400 700 Balance 400 201 Intake: IV 901 Intake, IV Titration 600 Amount Sodium Chloride 0.9% 1, 600 000 ml @ 75 mls/hr IV . [id number] [facility] Rx#:[id number] Other 200 Output: Urine 400 550 Straight 350 Estimated Blood Loss 150 Other: Voiding Method Indwelling Catheter Indwelling Catheter Indwelling Catheter # Voids 3 - Exam GENERAL: The patient is alert and oriented x3, not in any acute distress. Well developed, well nourished. HEENT: Pupils are round and equally reacting to light. EOMI. No scleral icterus. No conjunctival pallor. Normocephalic, atraumatic. No pharyngeal erythema. No thyromegaly. CARDIOVASCULAR: S1 and S2 present. No murmurs, rubs, or gallops. PULMONARY: Chest is clear to auscultation, no wheezing or crackles. ABDOMEN: Soft, nontender, nondistended, normoactive bowel sounds. No palpable organomegaly. MUSCULOSKELETAL: No joint swelling or deformity. EXTREMITIES: No cyanosis, clubbing, or pedal edema. -Left leg and thigh is in a dressing, further exam of the wound is deferred to the surgical primary team NEUROLOGICAL: Gross neurological examination did not reveal any focal deficits. SKIN: No rashes. - Labs CBC & Chem 7: 02/22/18 14:25 02/22/18 14:25 Labs: Abnormal Lab Results - Last 24 Hours (Table) 02/23/18 02/23/18 02/23/18 Range/Units 17:09 18:35 20:36 POC Glucose (mg/dL) 186 H 316 H (75-99) mg/dL Urine Appearance Cloudy H (Clear) Urine Protein 1+ H (Negative) Urine Ketones 1+ H (Negative) Urine Blood Small H (Negative) Ur Leukocyte Esterase Large H (Negative) Urine RBC 57 H (0-5) /hpf Urine WBC 178 H (0-5) /hpf Urine WBC Clumps Many H (None) /hpf Urine Mucus Moderate H (None) /hpf Urine Yeast (Budding) Occasional H (None) /hpf 02/24/18 02/24/18 02/24/18 Range/Units 06:58 11:16 14:54 POC Glucose (mg/dL) 213 H 130 H 183 H (75-99) mg/dL Urine Appearance (Clear) Urine Protein (Negative) Urine Ketones (Negative) Urine Blood (Negative) Ur Leukocyte Esterase (Negative) Urine RBC (0-5) /hpf Urine WBC (0-5) /hpf Urine WBC Clumps (None) /hpf Urine Mucus (None) /hpf Urine Yeast (Budding) (None) /hpf Assessment and Plan Assessment: Fracture of the left distal femur, status post open reduction and internal fixation with intramedullary nailing History of fall Type 2 diabetes mellitus Essential hypertension Degenerative joint disease Alzheimer dementia Plan: We recommend to continue with the same and treatment. Continue with symptomatic treatment. Resume home medication. Monitor lytes and vitals. We recommend DVT and GI prophylaxis. However DVT prophylaxis and pain management as per primary surgical team. Further recommendations based on the clinical course of the patient Prognosis is guarded Thank you for consulting us, please feel free to contact us for any further clarification or questions
[2018-02-24] MEDS: ACETAMINOPHEN TAB 325 MG TAB PO PRN (19:36)
[2018-02-24 20:32] LABS: Glucose,Whole Blood 252 mg/dL (75-99)
[2018-02-24 20:44] LABS: Appearance,Urine Cloudy (Clear); Bilirubin,Urine Negative (Negative); Blood,Urine Negative (Negative); Budding Yeast,Urine Few /hpf; Color,Urine Yellow; Glucose,Urine (UA) 2+ (Negative); Hyaline Casts,Urine 3 /lpf (0-2); Hyphae Yeast, Urine Rare /hpf; Leukocyte Esterase,Urine Moderate (Negative); Mucus,Urine Occasional /hpf; Nitrite,Urine Negative (Negative); PH, Urine 5.5 (5.0-8.0); Protein,Urine 1+ (Negative); RBC,Urine 10 /hpf (0-5); Specific Gravity,Urine 1.019 (1.001-1.035); Squamous Epithelial Cell,Urine 1 /hpf (0-4)
[2018-02-24 20:51] LABS: Ketones,Urine 4+ (Negative)
[2018-02-24] MEDS: ceFAZolin IN SWFI 2 GM/20 ML SYRINGE IVP SCH (21:38)
[2018-02-24] MEDS: NYSTATIN 100,000 UNIT/GM POWD 15 GM TOPICAL SCH (21:42)
[2018-02-24] MEDS: HYDROcodone/APAP 5-325MG 1 EACH TAB PO PRN (21:57)
[2018-02-25] MEDS: MORPHINE SULFATE 4 MG/ML SYRINGE IV PRN (03:49)
[2018-02-25] MEDS: ceFAZolin IN SWFI 2 GM/20 ML SYRINGE IVP SCH (04:36)
[2018-02-25] MEDS: LEVOTHYROXINE 25 MCG TAB PO SCH (05:55)
[2018-02-25 06:08] LABS: Glucose,Whole Blood 193 mg/dL (75-99)
--- NOTE | 2018-02-25 08:20 | CONS ---
CONSULTATION DATE OF SERVICE: 02/24/2018. REASON FOR CONSULTATION: 1. Sacral wound. 2. Bilateral groin induration. 3. Fever. HISTORY OF PRESENT ILLNESS: The patient is an 87-year-old female who was brought into the ER at [facility] after apparently the patient did have a fall when she was slided off her chair after lunch today. The patient has been complaining of pain to the left leg area. The patient did have a CT of the knee completed and has been diagnosed with displaced left periprosthetic distal femur fracture. The patient is status post retrograde intramedullary nailing left periprosthetic distal femur fracture today. The patient also noticed to have a small wound to the sacral area and groin area and rash for which ID was consulted for further recommendations regarding local wound care. The patient did receive 1 cefazolin 2 g q.8h 24 hours perioperatively for her surgery. The patient did not recall of any wound to the sacral area and denies any pain to that area or any drainage from it. She did have pain in her left leg, more of a dull aching pain but could not quantify any further. Denies any chest pain, shortness of breath or cough. No abdominal pain or any diarrhea. REVIEW OF SYSTEMS: Positive points have been mentioned in HPI. Rest of the system has been negative. PAST MEDICAL HISTORY: Diabetes mellitus, hypertension, osteoarthritis, hypothyroidism, pneumonia and UTI. PAST SURGICAL HISTORY: Cholecystectomy, cataract surgery, bilateral knee replacement, neck surgery. SOCIAL HISTORY: No history of smoking, drinking, or drug use. FAMILY HISTORY: No pertinent findings noticed. ALLERGIES: TO MEPERIDINE AND SULFA. MEDICATION: Currently include the patient is on: 1. Tylenol. 2. [place]. 3. Cefazolin 2 g q.8 hours. 4. Lovenox. 5. NovoLog. 6. Synthroid. 7. Cozaar. 8. Glucophage. 9. Morphine sulfate. 10.Theragran. 11.Narcan. 12.Protonix. EXAMINATION: VITAL SIGNS: Blood pressure is 150/74, pulse of 96, temperature of 98.8, T-max 101.9. She is 93% on 4 L nasal cannula. GENERAL DESCRIPTION is an elderly female lying in bed in no distress. No tachypnea or accessory muscle of respiration use. HEENT: Shows slight pallor. No scleral icterus. Oral mucosa is moist. No pharyngeal erythema or thrush. NECK: Trachea central. No thyromegaly. LUNGS: Unlabored breathing with decreased breath sounds in the bases. No wheeze. HEART: S1, S2. Regular rate. ABDOMEN: Soft. No tenderness. EXTREMITIES: No edema of the feet. Examination of the sacral area: The patient did have a stage II pressure ulcer with no evidence of any cellulitis. SKIN: No rashes or mass palpable. NEUROLOGICAL: Patient is awake, alert, oriented x3. Mood and affect normal. LABS: Hemoglobin is 11. White count 10.4. BUN of 24, creatinine 0.41. Electrolytes have been normal. Liver enzymes are normal. Urine did show moderate leukocyte esterase with many WBC clumps. Culture were not ordered on the initial urine. DIAGNOSTIC IMPRESSION/PLAN: 1. Patient with a stage II sacral pressure ulcer with no evidence of any cellulitis, recommend local wound care with Aquacel Silver dressing which should be changed every 48 hours. Keep the area off the pressure and keep it dry. 2. Bilateral groin area cutaneous candidiasis, advise Nystatin powder twice a day for about a week. 3. Patient with new fever postop and left femoral periprosthetic fracture. Blood culture has been obtained, the urine culture has been ordered. She is currently on cefazolin that should cover mild urinary tract infection as well to adjust on the basis of clinical response as well as cultures. Continue supportive care. MMODL / IJN: [id number] /
[2018-02-25] MEDS: ENOXAPARIN 30 MG/0.3 ML SYRINGE SQ SCH (09:17)
[2018-02-25] MEDS: metFORMIN 500 MG TAB PO SCH ×2 (09:21→17:56)
[2018-02-25] MEDS: GLIMEPIRIDE 2 MG TAB PO SCH ×2 (09:23→17:56)
[2018-02-25 09:24] LABS: Basophils % (A) 0 %; Eosinophils # (A) 0.1 k/uL (0-0.7); Eosinophils % (A) 1 %; HCT 24.7 % (34.0-46.0); Lymphocytes # (A) 0.7 k/uL (1.0-4.8); Lymphocytes % (A) 8 %; MCH 31.7 pg (25.0-35.0); MCHC 34.4 g/dL (31.0-37.0); MCV 92.4 fL (80.0-100.0); Mean Platelet Volume 7.1; Monocytes # (A) 0.6 k/uL (0-1.0); Monocytes % (A) 6 %; Neutrophils # (A) 7.6 k/uL (1.3-7.7); Neutrophils % (A) 84 %; Platelet Count 214 k/uL (150-450); Poikilocytosis Slight; RBC 2.67 m/uL (3.80-5.40); RDW 15.2 % (11.5-15.5)
[2018-02-25] MEDS: PANTOPRAZOLE 40 MG TABLET PO SCH (09:25)
[2018-02-25] MEDS: MULTIVITAMINS, THERA 1 EACH TAB PO SCH (09:26)
[2018-02-25 09:27] LABS: HGB 8.5 gm/dL (11.4-16.0)
[2018-02-25] MEDS: INSULIN ASPART 100 UNIT/ML 1 ML 10 ML VIAL SQ SCH ×4 (09:27→21:10)
--- NOTE | 2018-02-25 10:20 | P.PN ---
Subjective Progress Note Date: 02/25/18 Principal diagnosis: Status post intramedullary nailing left distal femur fracture Patient is seen today resting in her hospital bed, she appears comfortable. Knee immobilizer is in good position. She states the pain is well-controlled. She denies any chest pain or shortness of breath. Objective - Vital Signs Vital signs: Vital Signs Temp 99.7 F H 02/25/18 06:30 Pulse 98 02/25/18 06:30 Resp 12 02/25/18 06:30 BP 132/65 02/25/18 06:30 Pulse Ox 90 L 02/25/18 06:30 Intake & Output 02/24/18 02/25/18 02/25/18 18:59 06:59 18:59 Intake Total 1101 Output Total 700 500 Balance 401 -500 Weight 44.452 kg Intake: IV 901 Intake, IV Titration 200 Amount Sodium Chloride 0.9% 1, 200 000 ml @ 50 mls/hr IV . Q[facility]H [facility] Rx#:[id number] Output: Urine 550 500 Straight 350 Uretheral (Domínguez) 500 Estimated Blood Loss 150 Other: Voiding Method Indwelling Catheter Indwelling Catheter - Exam Left lower extremity: Knee immobilizer is in good position, Emeterio bandages in good position. She is able to wiggle the toes and no difficulty, her sensory exam to light touch is intact. Skin is warm to touch. - Labs CBC & Chem 7: 02/25/18 08:27 02/22/18 14:25 Labs: Abnormal Lab Results - Last 24 Hours (Table) 02/24/18 02/24/18 02/24/18 Range/Units 11:16 14:54 17:12 RBC (3.80-5.40) m/uL Hgb (11.4-16.0) gm/dL Hct (34.0-46.0) % Lymphocytes # (1.0-4.8) k/uL POC Glucose (mg/dL) 130 H 183 H 215 H (75-99) mg/dL Urine Appearance (Clear) Urine Protein (Negative) Urine Glucose (UA) (Negative) Urine Ketones (Negative) Ur Leukocyte Esterase (Negative) Urine RBC (0-5) /hpf Urine WBC (0-5) /hpf Hyaline Casts (0-2) /lpf Urine Mucus (None) /hpf Urine Yeast (Budding) (None) /hpf 02/24/18 02/24/18 02/25/18 Range/Units 20:30 20:30 06:06 RBC (3.80-5.40) m/uL Hgb (11.4-16.0) gm/dL Hct (34.0-46.0) % Lymphocytes # (1.0-4.8) k/uL POC Glucose (mg/dL) 252 H 193 H (75-99) mg/dL Urine Appearance Cloudy H (Clear) Urine Protein 1+ H (Negative) Urine Glucose (UA) 2+ H (Negative) Urine Ketones 4+ H (Negative) Ur Leukocyte Esterase Moderate H (Negative) Urine RBC 10 H (0-5) /hpf Urine WBC 37 H (0-5) /hpf Hyaline Casts 3 H (0-2) /lpf Urine Mucus Occasional H (None) /hpf Urine Yeast (Budding) Few H (None) /hpf 02/25/18 Range/Units 08:27 RBC 2.67 L (3.80-5.40) m/uL Hgb 8.5 L D (11.4-16.0) gm/dL Hct 24.7 L (34.0-46.0) % Lymphocytes # 0.7 L (1.0-4.8) k/uL POC Glucose (mg/dL) (75-99) mg/dL Urine Appearance (Clear) Urine Protein (Negative) Urine Glucose (UA) (Negative) Urine Ketones (Negative) Ur Leukocyte Esterase (Negative) Urine RBC (0-5) /hpf Urine WBC (0-5) /hpf Hyaline Casts (0-2) /lpf Urine Mucus (None) /hpf Urine Yeast (Budding) (None) /hpf Assessment and Plan Plan: Assessment: 1. Postop day #1 status post intramedullary nailing left distal femur fracture 2. Anemia Plan: Pain control, continue use of oral medication Nonweightbearing left lower extremity We'll change the bandage tomorrow, leave Emeterio wrap and knee immobilizer in current position GI and DVT prophylaxis, continue Lovenox We'll check hemoglobin in the a.m., may consider transfusion Other medical office scheduler and recommendations Discharge planning: Patient will require stay at rehab, anticipate discharge in the next few days Time with Patient: Less than 30
[2018-02-25] MEDS: NYSTATIN 100,000 UNIT/GM POWD 15 GM TOPICAL SCH ×2 (11:09→21:10)
[2018-02-25] MEDS: LOSARTAN 50 MG TAB PO SCH (11:09)
[2018-02-25 11:38] LABS: Glucose,Whole Blood 303 mg/dL (75-99)
[2018-02-25] MEDS: SODIUM CHLORIDE 0.9% 1,000 ML IV SCH (15:49)
[2018-02-25] MEDS: ACETAMINOPHEN TAB 325 MG TAB PO PRN (16:05)
[2018-02-25 17:26] LABS: Glucose,Whole Blood 242 mg/dL (75-99)
[2018-02-25] MEDS: PIPERACILLIN-TAZOBACTAM 3.375 GM in DEXTROSE/WATER 1 50ML.BAG IVPB SCH ×2 (17:35→23:42)
--- NOTE | 2018-02-25 19:58 | P.PN ---
Subjective on [facility] hospitalist covering for This is a pleasant 87 years old female with past medical history of diabetes mellitus, essential hypertension, osteoarthritis, hypothyroidism, who presents because of fall and fracture of left femur status post intramedullary nailing of the left distal femur fracture on 02/25/2018. Patient lying in bed comfortable not in distress. Patient denies chest pain. No dyspnea. No change in urine or bowel habits. No fever 02/25/2018 pt is more lethargic today , had fever 101 last night, and today 110.3. pt is status post fracture of left femur status post intramedullary nailing of the left distal femur fracture on 02/25/2018. pain looks controlled, pt UA is suggestive of infection , and CXR shows possible lower basilar pulmonary infiltrate, blood culture is negative , pt is started on zosy, she was on cefazolin, ID team are following the case and their input is appreciated, f/u UC , as per daughter at bed side pt has been treated before for pseudomanas UTI , pt currently has waters catheter . pt is started on lovenox for DVT px. Objective - Vital Signs Vital signs: Vital Signs Temp 100.3 F H 02/25/18 15:00 Pulse 101 H 02/25/18 15:00 Resp 12 02/25/18 15:00 BP 99/61 02/25/18 15:00 Pulse Ox 88 L 02/25/18 15:00 Intake & Output 02/25/18 02/25/18 02/26/18 06:59 18:59 06:59 Intake Total 450 Output Total 500 325 Balance -500 125 Weight 44.452 kg Intake: Intake, IV Titration 350 Amount Sodium Chloride 0.9% 1, 350 000 ml @ 50 mls/hr IV . Q20H [facility] Rx#:[id number] Oral 100 Output: Urine 500 325 Uretheral (Waters) 500 325 Other: Voiding Method Indwelling Catheter Indwelling Catheter - Exam GENERAL: The patient is alert and oriented x3, not in any acute distress. Well developed, well nourished. HEENT: Pupils are round and equally reacting to light. EOMI. No scleral icterus. No conjunctival pallor. Normocephalic, atraumatic. No pharyngeal erythema. No thyromegaly. CARDIOVASCULAR: S1 and S2 present. No murmurs, rubs, or gallops. PULMONARY: Chest is clear to auscultation, no wheezing or crackles. ABDOMEN: Soft, nontender, nondistended, normoactive bowel sounds. No palpable organomegaly. MUSCULOSKELETAL: No joint swelling or deformity. EXTREMITIES: No cyanosis, clubbing, or pedal edema. -Left leg and thigh is in a dressing, further exam of the wound is deferred to the surgical primary team NEUROLOGICAL: Gross neurological examination did not reveal any focal deficits. SKIN: No rashes. - Labs CBC & Chem 7: 02/25/18 08:27 02/22/18 14:25 Labs: Abnormal Lab Results - Last 24 Hours (Table) 02/24/18 02/24/18 02/25/18 Range/Units 20:30 20:30 06:06 RBC (3.80-5.40) m/uL Hgb (11.4-16.0) gm/dL Hct (34.0-46.0) % Lymphocytes # (1.0-4.8) k/uL POC Glucose (mg/dL) 252 H 193 H (75-99) mg/dL Urine Appearance Cloudy H (Clear) Urine Protein 1+ H (Negative) Urine Glucose (UA) 2+ H (Negative) Urine Ketones 4+ H (Negative) Ur Leukocyte Esterase Moderate H (Negative) Urine RBC 10 H (0-5) /hpf Urine WBC 37 H (0-5) /hpf Hyaline Casts 3 H (0-2) /lpf Urine Mucus Occasional H (None) /hpf Urine Yeast (Budding) Few H (None) /hpf 02/25/18 02/25/18 02/25/18 Range/Units 08:27 11:34 17:25 RBC 2.67 L (3.80-5.40) m/uL Hgb 8.5 L D (11.4-16.0) gm/dL Hct 24.7 L (34.0-46.0) % Lymphocytes # 0.7 L (1.0-4.8) k/uL POC Glucose (mg/dL) 303 H 242 H (75-99) mg/dL Urine Appearance (Clear) Urine Protein (Negative) Urine Glucose (UA) (Negative) Urine Ketones (Negative) Ur Leukocyte Esterase (Negative) Urine RBC (0-5) /hpf Urine WBC (0-5) /hpf Hyaline Casts (0-2) /lpf Urine Mucus (None) /hpf Urine Yeast (Budding) (None) /hpf Microbiology - Last 24 Hours (Table) 02/24/18 20:30 Urine Culture - Preliminary Urine,Voided Assessment and Plan Assessment: Fracture of the left distal femur, status post open reduction and internal fixation with intramedullary nailing History of fall UTI rather than pneumonia Type 2 diabetes mellitus Essential hypertension Degenerative joint disease Alzheimer dementia Plan: We recommend to continue with the same and treatment. Continue with symptomatic treatment. Resume home medication. Monitor lytes and vitals. We recommend DVT and GI prophylaxis. However DVT prophylaxis and pain management as per primary surgical team. Further recommendations based on the clinical course of the patient Prognosis is guarded Thank you for consulting us, please feel free to contact us for any further clarification or questions
[2018-02-25 21:05] LABS: Glucose,Whole Blood 225 mg/dL (75-99)
--- NOTE | 2018-02-26 00:23 | PN ---
PROGRESS NOTE DATE OF SERVICE: 02/25/2018. REASON FOR FOLLOWUP: 1. Fever. 2. Sacral wound. 3. disease. INTERVAL HISTORY: The patient did have a low-grade fever of 100.3 today. The patient seemed to have been breathing comfortably. No nausea, no vomiting has been noticed or any diarrhea. She continues to have some pain in the left leg after her surgery. EXAMINATION: Blood pressure is 125/57, pulse of 87, temperature 98.7, she is 92% on 2 L nasal cannula. General description is an elderly female, lying in bed in no distress. Respiratory system unlabored breathing with decreased breath sounds in the bases. No wheeze. Heart S1, S2. Regular rate and rhythm. Abdomen soft, no tenderness. Extremities: No edema of the feet. LABS: Hemoglobin 8.5, white count 9.0. Urine culture currently pending. DIAGNOSTIC IMPRESSION/PLAN: 1. Patient with postop fever with concern for possibility of the pneumonia with of the left lung base. Antibiotic has been Zosyn will be continued for now while waiting for the culture to finalize. 2. Patient with bilateral groin cutaneous candidiasis. Continue with nystatin powder. 3. Sacral wound. Local wound care with Aquacel Silver to keep the area off the pressure. MMODL / IJN: [id number] /
[2018-02-26] MEDS: ACETAMINOPHEN TAB 325 MG TAB PO PRN ×2 (00:55→20:06)
[2018-02-26] MEDS: LEVOTHYROXINE 25 MCG TAB PO SCH (06:02)
[2018-02-26 07:32] LABS: Glucose,Whole Blood 210 mg/dL (75-99)
[2018-02-26] MEDS: INSULIN ASPART 100 UNIT/ML 1 ML 10 ML VIAL SQ SCH ×4 (08:24→20:13)
[2018-02-26] MEDS: PIPERACILLIN-TAZOBACTAM 3.375 GM in DEXTROSE/WATER 1 50ML.BAG IVPB SCH ×3 (09:51→23:10)
[2018-02-26] MEDS: PANTOPRAZOLE 40 MG TABLET PO SCH (09:52)
[2018-02-26] MEDS: metFORMIN 500 MG TAB PO SCH ×2 (09:52→18:00)
[2018-02-26] MEDS: GLIMEPIRIDE 2 MG TAB PO SCH ×2 (09:52→18:00)
[2018-02-26] MEDS: SODIUM CHLORIDE 0.9% 1,000 ML IV SCH (09:52)
[2018-02-26] MEDS: MULTIVITAMINS, THERA 1 EACH TAB PO SCH (09:52)
[2018-02-26] MEDS: LOSARTAN 50 MG TAB PO SCH (09:52)
[2018-02-26] MEDS: ENOXAPARIN 30 MG/0.3 ML SYRINGE SQ SCH (09:52)
[2018-02-26] MEDS: NYSTATIN 100,000 UNIT/GM POWD 15 GM TOPICAL SCH ×2 (09:52→20:13)
--- NOTE | 2018-02-26 10:00 | P.PN ---
Subjective on [facility] hospitalist covering for This is a pleasant 87 years old female with past medical history of diabetes mellitus, essential hypertension, osteoarthritis, hypothyroidism, who presents because of fall and fracture of left femur status post intramedullary nailing of the left distal femur fracture on 02/25/2018. Patient lying in bed comfortable not in distress. Patient denies chest pain. No dyspnea. No change in urine or bowel habits. No fever 02/25/2018 pt is more lethargic today , had fever 101 last night, and today 110.3. pt is status post fracture of left femur status post intramedullary nailing of the left distal femur fracture on 02/25/2018. pain looks controlled, pt UA is suggestive of infection , and CXR shows possible lower basilar pulmonary infiltrate, blood culture is negative , pt is started on zosy, she was on cefazolin, ID team are following the case and their input is appreciated, f/u UC , as per daughter at bed side pt has been treated before for pseudomanas UTI , pt currently has waters catheter . pt is started on lovenox for DVT px. 02/26/2018 Patient is more awake today and answering questions appropriately, however daughter at bedside think she is a little bit confused. Fever is improving. Blood pressure 167/73. Oxygen saturation 94% on 2 L oxygen via NC. Patient denies to me chest pain. No dyspnea. No coughing. No abdominal pain. She didn't have bowel movement but she started eating gradually for example sandwich. Patient is still have Waters catheter. As per daughter she didn't have a Waters catheter per to admission. We are comment to DC Waters catheter in place if that's is fine With the primary team. Labs from today are still pending. Cultures so far negative including UC: In the process. Patient remains on Zosyn for possible sepsis, as she had fever yesterday. Could be UTI rather than pneumonia. Her sugar was high and her metformin was increased from 250 to 500 twice a day. Follow-up glucose and labs. ID follow-up is appreciated. Objective - Vital Signs Vital signs: Vital Signs Temp 97.6 F 02/26/18 08:16 Pulse 90 02/26/18 08:16 Resp 16 02/26/18 08:16 BP 167/73 02/26/18 08:16 Pulse Ox 94 L 02/26/18 08:16 Intake & Output 02/25/18 02/26/18 02/26/18 18:59 06:59 18:59 Intake Total 450 1040 Output Total 325 225 Balance 125 815 Intake: Intake, IV Titration 350 450 Amount Sodium Chloride 0.9% 1, 350 450 000 ml @ 50 mls/hr IV . Q20H [facility] Rx#:[id number] Oral 100 590 Output: Urine 325 225 Uretheral (Waters) 325 225 Other: Voiding Method Indwelling Catheter Indwelling Catheter - Exam GENERAL: The patient is alert and oriented x3, not in any acute distress. Well developed, well nourished. HEENT: Pupils are round and equally reacting to light. EOMI. No scleral icterus. No conjunctival pallor. Normocephalic, atraumatic. No pharyngeal erythema. No thyromegaly. CARDIOVASCULAR: S1 and S2 present. No murmurs, rubs, or gallops. PULMONARY: Chest is clear to auscultation, no wheezing or crackles. ABDOMEN: Soft, nontender, nondistended, normoactive bowel sounds. No palpable organomegaly. MUSCULOSKELETAL: No joint swelling or deformity. EXTREMITIES: No cyanosis, clubbing, or pedal edema. -Left leg and thigh is in a dressing, further exam of the wound is deferred to the surgical primary team NEUROLOGICAL: Gross neurological examination did not reveal any focal deficits. SKIN: No rashes. - Labs CBC & Chem 7: 02/25/18 08:27 02/22/18 14:25 Labs: Abnormal Lab Results - Last 24 Hours (Table) 02/25/18 02/25/18 02/25/18 Range/Units 11:34 17:25 21:03 POC Glucose (mg/dL) 303 H 242 H 225 H (75-99) mg/dL 02/26/18 Range/Units 07:30 POC Glucose (mg/dL) 210 H (75-99) mg/dL Microbiology - Last 24 Hours (Table) 02/24/18 20:08 Blood Culture - Preliminary Blood No Growth after 24 hours 02/24/18 20:30 Urine Culture - Preliminary Urine,Voided Assessment and Plan Assessment: Fracture of the left distal femur, status post open reduction and internal fixation with intramedullary nailing History of fall UTI rather than pneumonia Type 2 diabetes mellitus Essential hypertension Degenerative joint disease Alzheimer dementia Plan: We recommend to continue with the same and treatment. Continue with symptomatic treatment. Resume home medication. Monitor lytes and vitals. We recommend DVT and GI prophylaxis. However DVT prophylaxis and pain management as per primary surgical team. Further recommendations based on the clinical course of the patient Prognosis is guarded Thank you for consulting us, please feel free to contact us for any further clarification or questions
[2018-02-26 12:01] LABS: Basophils % (A) 0 %; Eosinophils # (A) 0.1 k/uL (0-0.7); Eosinophils % (A) 1 %; HCT 23.4 % (34.0-46.0); HGB 8.1 gm/dL (11.4-16.0); Lymphocytes # (A) 0.7 k/uL (1.0-4.8); Lymphocytes % (A) 9 %; MCH 31.9 pg (25.0-35.0); MCHC 34.8 g/dL (31.0-37.0); MCV 91.7 fL (80.0-100.0); Mean Platelet Volume 7.3; Monocytes # (A) 0.5 k/uL (0-1.0); Monocytes % (A) 7 %; Neutrophils # (A) 6.7 k/uL (1.3-7.7); Neutrophils % (A) 82 %; Platelet Count 257 k/uL (150-450); Poikilocytosis Moderate; RBC 2.55 m/uL (3.80-5.40); RDW 15.2 % (11.5-15.5); WBC 8.2 k/uL (3.8-10.6)
[2018-02-26 12:02] LABS: Glucose,Whole Blood 173 mg/dL (75-99)
--- NOTE | 2018-02-26 15:18 | P.PN ---
Subjective Progress Note Date: 02/26/18 Principal diagnosis: Status post intramedullary nailing left distal femur fracture Patient is seen today resting in her hospital bed, she appears comfortable. Knee immobilizer is in good position. She states the pain is well-controlled. She denies any chest pain or shortness of breath. Objective - Vital Signs Vital signs: Vital Signs Temp 97.6 F 02/26/18 08:16 Pulse 90 02/26/18 08:16 Resp 16 02/26/18 08:16 BP 167/73 02/26/18 08:16 Pulse Ox 94 L 02/26/18 08:16 Intake & Output 02/25/18 02/26/18 02/26/18 18:59 06:59 18:59 Intake Total 450 1040 100 Output Total 325 225 Balance 125 815 100 Weight 44.452 kg Intake: Intake, IV Titration 350 450 Amount Sodium Chloride 0.9% 1, 350 450 000 ml @ 50 mls/hr IV . Q20H [facility] Rx#:[id number] Oral 100 590 100 Output: Urine 325 225 Uretheral (Domínguez) 325 225 Other: Voiding Method Indwelling Catheter Indwelling Catheter Indwelling Catheter - Exam Left lower extremity: Knee immobilizer is in good position. Initial postoperative bandages removed, robert are all in good position. She is able to wiggle the toes and no difficulty, her sensory exam to light touch is intact. Skin is warm to touch. - Labs CBC & Chem 7: 02/26/18 11:16 02/22/18 14:25 Labs: Abnormal Lab Results - Last 24 Hours (Table) 02/25/18 02/25/18 02/26/18 Range/Units 17:25 21:03 07:30 RBC (3.80-5.40) m/uL Hgb (11.4-16.0) gm/dL Hct (34.0-46.0) % Lymphocytes # (1.0-4.8) k/uL POC Glucose (mg/dL) 242 H 225 H 210 H (75-99) mg/dL 02/26/18 02/26/18 Range/Units 11:16 11:59 RBC 2.55 L (3.80-5.40) m/uL Hgb 8.1 L (11.4-16.0) gm/dL Hct 23.4 L (34.0-46.0) % Lymphocytes # 0.7 L (1.0-4.8) k/uL POC Glucose (mg/dL) 173 H (75-99) mg/dL Microbiology - Last 24 Hours (Table) 02/24/18 20:30 Urine Culture - Preliminary Urine,Voided Yeast species 02/24/18 20:08 Blood Culture - Preliminary Blood No Growth after 24 hours Assessment and Plan Plan: Assessment: 1. Postop day #2 status post intramedullary nailing left distal femur fracture 2. Anemia Plan: Pain control, continue use of oral medication Nonweightbearing left lower extremity GI and DVT prophylaxis, continue Lovenox Hemoglobin remained stable Other medical records clerk and recommendations Discharge planning: Hopeful discharge to rehab today Time with Patient: Less than 30
--- NOTE | 2018-02-26 15:30 | P.DS ---
Providers Date of admission: 02/21/18 23:05 Expected date of discharge: 02/26/18 Attending physician: Pedro Cabello Consults: 02/21/18 23:06 Consult Physician Urgent Consulting Provider: Julio Moon Consult Reason/Comments: medical consult Do you want consulting provider notified?: Yes 02/24/18 15:03 Consult Physician Routine Consulting Provider: Isaiah Newell Consult Reason/Comments: Sacral decubitus ulcer Do you want consulting provider notified?: Already Contacted Primary care physician: Danial Dey MD Hospital Course: Date of admission: 02/21/2018 Date of discharge: 02/26/2018 Admission diagnosis: Left distal femur fracture Discharge diagnosis: Status post intramedullary nailing left distal femur fracture Attending physician: Dr. Cabello Surgical procedures: Intramedullary nailing left distal femur fracture Brief history: Patient is a 87-year-old female who presented to [facility] on 02/21/2018 after injuring her left leg. It was found she had a distal femur fracture, she was admitted to the orthopedic care. Proper consults place for likely surgical intervention. Patient underwent surgery on 02/24/2018. Hospital course: Details of patient's surgery can be found in operative report. Patient tolerated the procedure well and was subsequently transported to orthopedic floor. Patient's orthopeidc and medical care was provided daily. Patient had daily laboratory tests performed for evaluation of overall blood counts/ Patient had daily physical therapy to include strengthening range of motion as well as education with walker ambulation. Patient was treated with Lovenox for their postoperative DVT prophylaxis during their inpatient stay. Patient was noted to have a relatively uneventful postoperative course. Patient reported satisfactory pain control with oral pain medications by postoperative day 0. Patient showed satisfactory progress with physical therapy. Patient moved steadily through the program and had no difficulty meeting the goals by postoperative day 2. Given patient's otherwise satisfactory course and having met physical therapy goals, plan is to discharge patient rehab on postoperative day 2. Discharge condition/disposition: Patient will be discharged rehab in stable condition. Discharge medications: Instructions are given on resumption of patient's normal daily medications per primary care recommendation, in addition patient will be prescribed New Era 5mg/325mg, Heparin 5000 units Discharge instructions: 1. Wound care and infection precautions, keep incision dry and covered while showering no lotions, creams, moisturizers. No soaking, tubs, pools, hottubs. Do not scrub over the incision. 2. Nonweightbearing left lower extremity, utilize knee immobilizer 3. Ice and elevate when necessary. Do not exceed 20 minutes per hour with ice pack. 4. Utilize compression sleeve until seen at first follow up appointment. 5. Visiting nursing care. 6. Home physical therapy 7. Pain meds and anticoagulants per prescription. 8. Pain medication has potential to cause constipation. Increase oral fluid and fiber intake. Contact primary care provider if you have not had a bowel movement within 48 hours after discharge 9. No anti-inflammatory medication until discussed at first post operative visit, this including Motrin, Aleve, Mobic, Diclofenac 10. Follow up in office at 2 weeks postop with Micha Dawson PA-C 11. Follow up with your primary care doctor 7-10 days after discharge. 12. Contact [facility] with any questions, . Procedures: Intramedullary nailing left distal femur fracture Patient Condition at Discharge: Good Plan - Discharge Summary Discharge Rx Participant: No New Discharge Prescriptions: New Hydrocodone/Acetaminophen [New Era 5-325] 1 each PO Q6HR PRN #28 tab PRN Reason: Pain Heparin Sodium,Porcine [Heparin Sodium] 5,000 unit SQ Q12HR #60 vial No Action metFORMIN HCL ER [Glucophage Xr] 500 mg PO DAILY@1700 P[place]mont-3 Fatty Acids/Fish Oil [Fish Oil 1,000 mg Softgel] 1 cap PO BID@0900, 1700 Aspirin 81 mg PO DAILY@0900 Multivitamins, Thera [Multivitamin (formulary)] 1 tab PO DAILY@0900 Losartan Potassium [Cozaar] 100 mg PO DAILY@0900 Glimepiride [Amaryl] 2 mg PO BID@0900,1700 Levothyroxine Sodium [Synthroid] 25 mcg PO DAILY@0700 Cholecalciferol [Vitamin D3] 1,000 unit PO DAILY@0900 Acetaminophen Tab [Tylenol Tab] 500 mg PO BID@0700,2100 Discharge Medication List Acetaminophen Tab [Tylenol Tab] 500 mg PO BID@0700,2100 12/22/17 [History] Aspirin 81 mg PO DAILY@0900 12/22/17 [History] Cholecalciferol [Vitamin D3] 1,000 unit PO DAILY@0900 12/22/17 [History] Glimepiride [Amaryl] 2 mg PO BID@0900,1700 12/22/17 [History] Levothyroxine Sodium [Synthroid] 25 mcg PO DAILY@0700 12/22/17 [History] Losartan Potassium [Cozaar] 100 mg PO DAILY@0900 12/22/17 [History] Multivitamins, Thera [Multivitamin (formulary)] 1 tab PO DAILY@0900 12/22/17 [ History] Piedmont-3 Fatty Acids/Fish Oil [Fish Oil 1,000 mg Softgel] 1 cap PO BID@0900,1700 12/22/17 [History] metFORMIN HCL ER [Glucophage Xr] 500 mg PO DAILY@17012/22/17 [History] Heparin Sodium,Porcine [Heparin Sodium] 5,000 unit SQ Q12HR #60 vial 02/26/18 [ Rx] Hydrocodone/Acetaminophen [New Era 5-325] 1 each PO Q6HR PRN #28 tab 02/26/18 [Rx] Follow up Appointment(s)/Referral(s): Nonstaff,Physician [REFERRING] - 1-2 days Kameron Dawson PAC [PHYSICIAN BIN PILER] - 2 Weeks Activity/Diet/Wound Care/Special Instructions: Orthopedic Discharge Instructions: 1. Wound care and infection precautions, keep incision dry and covered while showering, no lotions, creams, moisturizers. No soaking, pools, hot tubs. Do not scrub over incision. 2. Nonweightbearing left lower extremity 3. Ice and elevate when necessary. Do not exceed 20 minutes per hour with ice pack. 4. Utilize compression sleeve until seen at first follow up appointment. 5. Pain meds and anticoagulants per prescription. 6. Pain medication has potential to cause constipation. Increase oral fluid and fiber intake. Contact primary care provider if you have not had a bowel movement within 48 hours after discharge. 7. No anti-inflammatory medication until discussed at first post operative visit, this including Motrin, Aleve, Mobic, Diclofenac. 8. Follow up in office at 2 weeks postop with Micha Dawson PA-C 9. Follow up with your primary care doctor 7-10 days after discharge. 10. Contact [facility] with any questions, . Discharge Disposition: TRANSFER TO SNF/ECF
[2018-02-26 16:20] LABS: Anion Gap 7 mmol/L; Blood Urea Nitrogen 14 mg/dL (7-17); Calcium 7.8 mg/dL (8.4-10.2); Carbon Dioxide 23 mmol/L (22-30); Chloride 105 mmol/L (98-107); Glucose 165 mg/dL (74-99); Potassium 3.4 mmol/L (3.5-5.1); Sodium 135 mmol/L (137-145)
[2018-02-26 16:55] LABS: Glucose,Whole Blood 248 mg/dL (75-99)
[2018-02-26] MEDS ORDERED: Potassium Replacement Protocol 1 EACH MISC MISCELLANE PRN (18:12)
[2018-02-26] MEDS ORDERED: SODIUM CHLORIDE 0.9% 500 ML 500 ML IV ONE (18:14)
[2018-02-26] MEDS: POTASSIUM CHLORIDE ER 20 MEQ TAB.ER PO SCH ×2 (20:06→21:13)
[2018-02-26 20:22] LABS: Glucose,Whole Blood 216 mg/dL (75-99)
--- NOTE | 2018-02-26 21:51 | PN ---
PROGRESS NOTE DATE OF SERVICE: 02/26/2018 REASON FOR FOLLOWUP: 1. Postoperative fever, possible atelectasis/pneumonia. 2. UTI. 3. Sacral wound. 4. Groin area cutaneous candidiasis. INTERVAL HISTORY: The patient's overall fever pattern has improved. No fever has been recorded today. She has been breathing more comfortably, currently on room air. No nausea. No vomiting. Denies significant chest pain. Occasional cough. No abdominal pain. Pain to the leg is currently controlled. PHYSICAL EXAMINATION: Blood pressure is 167/73 with a pulse of 90, temperature 97.6. She is 94% 2 L nasal cannula. General description is an elderly female lying in bed in no distress. RESPIRATORY SYSTEM: Unlabored breathing with decreased breath sounds in the bases. No wheeze. HEART: S1, S2. Regular rate and rhythm. ABDOMEN: Soft. No tenderness. EXTREMITIES: No edema of the feet. LABS: Hemoglobin 8.1, white count 8.2 with a BUN of 14, creatinine 0.39. Urine is showing a yeast species. Blood culture has been negative. DIAGNOSTIC IMPRESSION AND PLAN: Patient who did have a fever postoperatively, questionably reactive with a question of urinary tract infection versus atelectasis/pneumonia. Patient is currently on Zosyn. Urine is showing a yeast species. Will give a short course of oral Diflucan and Zosyn that can be transitioned to a short course of oral Augmentin on discharge. Continue with supportive care. MMODL / IJN: [id number] /
[2018-02-26] MEDS ORDERED: POTASSIUM CHLORIDE ER 20 MEQ TAB.ER PO STA (22:11)
[2018-02-27 07:19] LABS: Glucose,Whole Blood 269 mg/dL (75-99)
[2018-02-27 07:52] LABS: Basophils % (A) 0 %; Eosinophils # (A) 0.1 k/uL (0-0.7); Eosinophils % (A) 1 %; HCT 23.3 % (34.0-46.0); HGB 8.1 gm/dL (11.4-16.0); Hyperchromasia Slight; Lymphocytes # (A) 0.6 k/uL (1.0-4.8); Lymphocytes % (A) 8 %; MCH 31.7 pg (25.0-35.0); MCHC 34.6 g/dL (31.0-37.0); MCV 91.7 fL (80.0-100.0); Mean Platelet Volume 6.8; Monocytes # (A) 0.4 k/uL (0-1.0); Monocytes % (A) 6 %; Neutrophils % (A) 83 %; Platelet Count 233 k/uL (150-450); Poikilocytosis Moderate; RBC 2.54 m/uL (3.80-5.40); RDW 15.2 % (11.5-15.5); WBC 7.3 k/uL (3.8-10.6)
[2018-02-27] MEDS ORDERED: FUROSEMIDE 10 MG/ML 4 ML VIAL IV STA (07:57)
[2018-02-27] MEDS: SODIUM CHLORIDE 0.9% 1,000 ML IV SCH (08:07)
[2018-02-27 08:09] LABS: Anion Gap 6 mmol/L; Blood Urea Nitrogen 11 mg/dL (7-17); Calcium 7.5 mg/dL (8.4-10.2); Carbon Dioxide 23 mmol/L (22-30); Chloride 107 mmol/L (98-107); Glucose 173 mg/dL (74-99); Sodium 136 mmol/L (137-145)
[2018-02-27] MEDS: PIPERACILLIN-TAZOBACTAM 3.375 GM in DEXTROSE/WATER 1 50ML.BAG IVPB SCH ×2 (08:45→18:50)
[2018-02-27] MEDS: ENOXAPARIN 30 MG/0.3 ML SYRINGE SQ SCH (08:45)
[2018-02-27] MEDS: INSULIN ASPART 100 UNIT/ML 1 ML 10 ML VIAL SQ SCH ×4 (08:46→20:20)
[2018-02-27] MEDS: PANTOPRAZOLE 40 MG TABLET PO SCH (08:50)
[2018-02-27] MEDS: LOSARTAN 50 MG TAB PO SCH (08:50)
[2018-02-27] MEDS: metFORMIN 500 MG TAB PO SCH ×2 (08:50→18:49)
[2018-02-27] MEDS: MULTIVITAMINS, THERA 1 EACH TAB PO SCH (08:51)
[2018-02-27] MEDS: NYSTATIN 100,000 UNIT/GM POWD 15 GM TOPICAL SCH ×2 (08:51→20:20)
[2018-02-27] MEDS: LEVOTHYROXINE 25 MCG TAB PO SCH (08:51)
[2018-02-27] MEDS: GLIMEPIRIDE 2 MG TAB PO SCH ×2 (08:51→18:49)
--- NOTE | 2018-02-27 11:07 | CDI ---
Last Revision, April 2017 Documentation Clarification Form Date: 02/27/2018 10:43:31 AM From: Celeste Velasco RN, CCDS Admit Date: 02/21/2018 11:05:00 PM Patient Name: Maddie Young Visit Number: [id number] Discharge Date: ATTENTION: The Clinical Documentation Specialists (CDI) and [facility] Coding Staff appreciate your assistance in clarifying documentation. Please respond to the clarification below the line at the bottom and electronically sign. The CDI & [facility] Coding staff will review the response and follow-up if needed. Please note: Queries are made part of the Legal Health Record. If you have any questions, please contact the author of this message via ITS. Isaiah Stubbs MD UTI was documented in the in your consult on 02/25 and ongoing progress notes. History/Risk Factors: Diabetes Mellitus, Hypertension, Sacral wound Clinical Indicators: Present after a fall and was diagnosed with displaced left periprosthetic distal femur fracture. 02/21/15 a waters catheter was inserted. 02/24/18 at 14:00 Surgical repair: Retrograde intramedullary nailing left periprosthetic distal femur fracture. Vital Signs: 150/74 96 98.8, T-max 101.9 WBC: 10.4 Urinalysis: 02/22/18 urine positive for yeast. Urinalysis: 02/23/18 Urine appearance was cloudy, Ur Leukocyte Esterase Large, Urine Mucus Moderate, Urine WBC many, Urine yeast Occasional High Urine culture: 02/24/18 Final Mary [facility]icans Treatment monitor VS Monitor Labs Zosyn IV Please document the condition that these clinical indicators signify, whether Present on Admission, and cause if known: UTI If due to Waters catheter, please document Specify organism, if known Identify location of infection (if known) Bladder, Kidney, Urethra Contaminated specimen Other, please specify Unable to determine Present on Admission: Yes No Please continue to document in your progress notes and discharge summary in order to capture severity of illness and risk of mortality. Include clinical findings that support your diagnosis. _UTI was present on admission not Waters catheter Related _ MTDD
[2018-02-27 11:24] LABS: Glucose,Whole Blood 270 mg/dL (75-99)
--- NOTE | 2018-02-27 11:31 | CDI ---
Last Revision, April 2017 Documentation Clarification Form Date: 02/27/2018 11:16:50 AM From: Celeste Velasco RN, CCDS Admit Date: 02/21/2018 11:05:00 PM Patient Name: Maddie Young Visit Number: [id number] Discharge Date: ATTENTION: The Clinical Documentation Specialists (CDI) and [facility] Coding Staff appreciate your assistance in clarifying documentation. Please respond to the clarification below the line at the bottom and electronically sign. The CDI & [facility] Coding staff will review the response and follow-up if needed. Please note: Queries are made part of the Legal Health Record. If you have any questions, please contact the author of this message via ITS. Pedro Richmond MD A diagnosis of anemia lacks specificity to accurately reflect your patients severity of condition and clarification is needed. History/Risk Factors: Diabetes Mellitus, Hypertension, Sacral wound Clinical indicators: Present after a fall and was diagnosed with displaced left periprosthetic distal femur fracture. On admission HGB: 11.0, HCT 30.6 02/24/18 Retrograde intramedullary nailing left distal femur fracture. 02/25/18 HGB 8.5, HCT 24.7 02/26/18 HGB 8.1, HCT 23.4 02/27/18 HGB 8.1, HCT 23.3 Treatment: Monitor CBC Theragram PO In order to capture the severity of condition, please clarify the type of anemia and etiology if known: Acute blood loss anemia (specify expected or other) Unable to determine Other, please specify Please continue to document in your progress notes and discharge summary in order to capture severity of illness and risk of mortality. Include clinical findings that support your diagnosis. the patient sustained acute blood loss anemia because of her fracture that was expected. JUAN JOSÉD
[2018-02-27] MEDS: ACETAMINOPHEN TAB 325 MG TAB PO PRN (13:56)
[2018-02-27] MEDS: HYDROcodone/APAP 5-325MG 1 EACH TAB PO PRN (16:27)
[2018-02-27 17:40] LABS: Glucose,Whole Blood 202 mg/dL (75-99)
[2018-02-27 20:28] LABS: Glucose,Whole Blood 151 mg/dL (75-99)
[2018-02-27 22:54] VITALS: RESP 16
--- NOTE | 2018-02-27 22:58 | PN ---
PROGRESS NOTE DATE OF SERVICE: 02/27/2018 REASON FOR FOLLOWUP: Fever with a question of UTI/pneumonia. INTERVAL HISTORY: The patient is currently afebrile. She seems to have been breathing more comfortably. She is more awake and alert. She is currently waiting for placement. No chest pain. No abdominal pain or any diarrhea. PHYSICAL EXAMINATION: Blood pressure is 151/70 with a pulse of 95, temperature 97.3. She is 96% on 2 L nasal cannula. General description is an elderly female lying in bed in no distress. RESPIRATORY SYSTEM: Unlabored breathing with decreased breath sounds at the bases. No wheeze. HEART: S1, S2. Regular rate and rhythm. ABDOMEN: Soft. No tenderness. EXTREMITIES: No edema of the feet. LABS: Hemoglobin 8.1, white count 7.3 with a BUN of 11, creatinine 0.37. Urine is showing Mary albicans. Blood culture has been negative, sputum not collected. DIAGNOSTIC IMPRESSION AND PLAN: Patient with a fever, likely component of urinary tract infection. Urine showing Mary albicans. component of pneumonia. Patient is currently covered with Zosyn. That will be transitioned to oral Augmentin on discharge for a very short course of 5 more days. For her mary UTI, the patient will continue on the oral Diflucan for 3 days. MMODL / IJN: [id number] /
[2018-02-28] MEDS: PIPERACILLIN-TAZOBACTAM 3.375 GM in DEXTROSE/WATER 1 50ML.BAG IVPB SCH ×2 (00:05→09:45)
[2018-02-28] MEDS: SODIUM CHLORIDE 0.9% 1,000 ML IV SCH (03:27)
[2018-02-28 07:15] LABS: Glucose,Whole Blood 87 mg/dL (75-99)
[2018-02-28 08:01] VITALS: BP 177/87; PULSE 81; TEMP 98.6
[2018-02-28] MEDS: INSULIN ASPART 100 UNIT/ML 1 ML 10 ML VIAL SQ SCH ×2 (08:03→13:24)
[2018-02-28 08:29] LABS: Basophils % (A) 0 %; Eosinophils # (A) 0.2 k/uL (0-0.7); Eosinophils % (A) 3 %; HCT 23.5 % (34.0-46.0); HGB 7.8 gm/dL (11.4-16.0); Hypochromasia Slight; Lymphocytes # (A) 0.6 k/uL (1.0-4.8); Lymphocytes % (A) 10 %; MCH 31.5 pg (25.0-35.0); MCHC 33.4 g/dL (31.0-37.0); MCV 94.4 fL (80.0-100.0); Mean Platelet Volume 7.2; Monocytes # (A) 0.5 k/uL (0-1.0); Monocytes % (A) 8 %; Neutrophils % (A) 78 %; Platelet Count 276 k/uL (150-450); Poikilocytosis Moderate; RBC 2.49 m/uL (3.80-5.40); RDW 15.4 % (11.5-15.5); WBC 6.4 k/uL (3.8-10.6)
[2018-02-28] MEDS ORDERED: traMADol 50 MG TAB PO PRN (08:32)
[2018-02-28 08:42] LABS: Anion Gap 7 mmol/L; Blood Urea Nitrogen 10 mg/dL (7-17); Calcium 7.4 mg/dL (8.4-10.2); Carbon Dioxide 26 mmol/L (22-30); Chloride 103 mmol/L (98-107); Glucose 70 mg/dL (74-99); Potassium 3.5 mmol/L (3.5-5.1); Sodium 136 mmol/L (137-145)
[2018-02-28] MEDS ORDERED: FLUCONAZOLE 100 MG TAB PO SCH (09:00)
[2018-02-28] MEDS ORDERED: LIDOCAINE 5% PATCH TOPICAL SCH (09:00)
[2018-02-28] MEDS: ACETAMINOPHEN TAB 325 MG TAB PO PRN (09:49)
[2018-02-28] MEDS: LOSARTAN 50 MG TAB PO SCH (09:50)
[2018-02-28] MEDS: MULTIVITAMINS, THERA 1 EACH TAB PO SCH (09:50)
[2018-02-28] MEDS: metFORMIN 500 MG TAB PO SCH (09:50)
[2018-02-28] MEDS: GLIMEPIRIDE 2 MG TAB PO SCH (09:50)
[2018-02-28] MEDS: PANTOPRAZOLE 40 MG TABLET PO SCH (09:51)
[2018-02-28] MEDS: LEVOTHYROXINE 25 MCG TAB PO SCH (09:51)
[2018-02-28] MEDS: ENOXAPARIN 30 MG/0.3 ML SYRINGE SQ SCH (09:51)
[2018-02-28] MEDS: NYSTATIN 100,000 UNIT/GM POWD 15 GM TOPICAL SCH (09:53)
--- NOTE | 2018-02-28 10:50 | P.PN ---
Subjective on tc hospitalist covering for This is a pleasant 87 years old female with past medical history of diabetes mellitus, essential hypertension, osteoarthritis, hypothyroidism, who presents because of fall and fracture of left femur status post intramedullary nailing of the left distal femur fracture on 02/25/2018. Patient lying in bed comfortable not in distress. Patient denies chest pain. No dyspnea. No change in urine or bowel habits. No fever 02/25/2018 pt is more lethargic today , had fever 101 last night, and today 110.3. pt is status post fracture of left femur status post intramedullary nailing of the left distal femur fracture on 02/25/2018. pain looks controlled, pt UA is suggestive of infection , and CXR shows possible lower basilar pulmonary infiltrate, blood culture is negative , pt is started on zosy, she was on cefazolin, ID team are following the case and their input is appreciated, f/u UC , as per daughter at bed side pt has been treated before for pseudomanas UTI , pt currently has waters catheter . pt is started on lovenox for DVT px. 02/26/2018 Patient is more awake today and answering questions appropriately, however daughter at bedside think she is a little bit confused. Fever is improving. Blood pressure 167/73. Oxygen saturation 94% on 2 L oxygen via NC. Patient denies to me chest pain. No dyspnea. No coughing. No abdominal pain. She didn't have bowel movement but she started eating gradually for example sandwich. Patient is still have Waters catheter. As per daughter she didn't have a Waters catheter per to admission. We are comment to DC Waters catheter in place if that's is fine With the primary team. Labs from today are still pending. Cultures so far negative including UC: In the process. Patient remains on Zosyn for possible sepsis, as she had fever yesterday. Could be UTI rather than pneumonia. Her sugar was high and her metformin was increased from 250 to 500 twice a day. Follow-up glucose and labs. ID follow-up is appreciated. 02/27/2018 Patient was alert and awake today however she was in mild distress due to dyspnea. She was awake and she answers questions appropriately. IV fluids were stopped and patient given 1 dose of IV Lasix. Patient fever is improving and she is been afebrile for more than 24 hours. Vitas looks stable and oxygen saturation 92% and 2 L via nasal cannula. Pain at the surgical site controlled. Urine culture showing yeast species. 02/28/2018 Patient was lying in bed comfortable patient denies chest pain or dyspnea. She is eating well. This morning she was complaining of from low back pain which was been there for a while. No weakness of the lower extremity. Yesterday she got 1 dose of Bruce 5 mg and she got sleepy after that so will try to give her 1 dose of Tylenol and 25 mg of Ultram besides lidocaine patch. Patient continued to be on metformin 500 mg. Her sugar is better controlled this morning at 87. Keep monitoring blood sugar. Patient remains on Zosyn and is going to be changed to Augmentin upon discharge. And she was placed also on fluconazole 100 mg daily by infectious disease X3 days. Start and calcium and vitamin D. Objective - Vital Signs Vital signs: Vital Signs Temp 98.6 F 02/28/18 07:00 Pulse 81 02/28/18 07:00 Resp 16 02/28/18 07:00 BP 177/87 02/28/18 07:00 Pulse Ox 98 02/28/18 07:00 Intake & Output 02/27/18 02/28/18 02/28/18 18:59 06:59 18:59 Intake Total 450 Output Total 2150 200 Balance -2150 250 Intake: Intake, IV Titration 450 Amount Piperacillin-Tazobactam 3 50 .375 gm In Dextrose/Water 1 50ml.bag @ 12.5 mls/hr IVPB Q8HR KRISHNA Rx#: [id number] Sodium Chloride 0.9% 1, 400 000 ml @ 50 mls/hr IV . Q20H KRISHNA Rx#:[id number] Output: Urine 2150 200 Other: Voiding Method Indwelling Catheter Indwelling Catheter # Bowel Movements 1 - Exam GENERAL: The patient is alert and oriented x3, not in any acute distress. Well developed, well nourished. HEENT: Pupils are round and equally reacting to light. EOMI. No scleral icterus. No conjunctival pallor. Normocephalic, atraumatic. No pharyngeal erythema. No thyromegaly. CARDIOVASCULAR: S1 and S2 present. No murmurs, rubs, or gallops. PULMONARY: Chest is clear to auscultation, no wheezing or crackles. ABDOMEN: Soft, nontender, nondistended, normoactive bowel sounds. No palpable organomegaly. MUSCULOSKELETAL: No joint swelling or deformity. EXTREMITIES: No cyanosis, clubbing, or pedal edema. -Left leg and thigh is in a dressing, further exam of the wound is deferred to the surgical primary team NEUROLOGICAL: Gross neurological examination did not reveal any focal deficits. SKIN: No rashes. - Labs CBC & Chem 7: 02/28/18 06:54 02/28/18 06:54 Labs: Abnormal Lab Results - Last 24 Hours (Table) 02/27/18 02/27/18 02/27/18 Range/Units 11:13 17:29 20:16 RBC (3.80-5.40) m/uL Hgb (11.4-16.0) gm/dL Hct (34.0-46.0) % Lymphocytes # (1.0-4.8) k/uL Sodium (137-145) mmol/L Creatinine (0.52-1.04) mg/dL Glucose (74-99) mg/dL POC Glucose (mg/dL) 270 H 202 H 151 H (75-99) mg/dL Calcium (8.4-10.2) mg/dL 02/28/18 02/28/18 Range/Units 06:54 06:54 RBC 2.49 L (3.80-5.40) m/uL Hgb 7.8 L (11.4-16.0) gm/dL Hct 23.5 L (34.0-46.0) % Lymphocytes # 0.6 L (1.0-4.8) k/uL Sodium 136 L (137-145) mmol/L Creatinine 0.37 L (0.52-1.04) mg/dL Glucose 70 L (74-99) mg/dL POC Glucose (mg/dL) (75-99) mg/dL Calcium 7.4 L (8.4-10.2) mg/dL Microbiology - Last 24 Hours (Table) 02/24/18 20:08 Blood Culture - Preliminary Blood No Growth after 72 hours 02/24/18 20:30 Urine Culture - Final Urine,Voided Mary albicans Assessment and Plan Assessment: Fracture of the left distal femur, status post open reduction and internal fixation with intramedullary nailing History of fall UTI rather than pneumonia Type 2 diabetes mellitus Essential hypertension Degenerative joint disease Alzheimer dementia Plan: We recommend to continue with the same and treatment. Continue with symptomatic treatment. Resume home medication. Monitor lytes and vitals. We recommend DVT and GI prophylaxis. However DVT prophylaxis and pain management as per primary surgical team. Further recommendations based on the clinical course of the patient Prognosis is guarded Thank you for consulting us, please feel free to contact us for any further clarification or questions
[2018-02-28] MEDS ORDERED: CALCIUM CARB-VIT D 500MG-200UN 1 EACH TAB PO SCH (11:00)
[2018-02-28 11:17] LABS: Glucose,Whole Blood 252 mg/dL (75-99)
[2018-02-28] MEDS: POTASSIUM CHLORIDE ER 20 MEQ TAB.ER PO SCH ×2 (13:25→13:40)
--- NOTE | 2018-02-28 14:08 | PN ---
PROGRESS NOTE DATE OF SERVICE: 02/28/2018. REASON FOR FOLLOWUP: 1. Urinary tract infection. 2. Possible pneumonia. INTERVAL HISTORY: The patient seemed to be currently breathing comfortably. No nausea or vomiting has been noticed. No abdominal pain. She noticed to have a pressure ulcer on the right heel. PHYSICAL EXAMINATION: Blood pressure is 157/87 with a pulse of 81, temperature 98.6. She is 98% on 2 L nasal cannula. General description is an elderly female, lying in bed in no distress. RESPIRATORY SYSTEM: Unlabored breathing, clear to auscultation anteriorly. HEART: S1, S2. Regular rate and rhythm. Right heel with the stage I pressure ulcer, no cellulitis. LABS: Hemoglobin 7.8, white count 6.4, BUN of 10, creatinine 0.37. DIAGNOSTIC IMPRESSION/PLAN: 1. Patient with fever, source likely urinary tract infection with urine showing a Mary on oral Diflucan for a 3-day course. 2. Patient with left lobe infiltrate, possible pneumonia. Currently on Zosyn with addition to oral Augmentin for about 3-5 days. 3. Patient with right heel pressure ulcer, heel protector. 4. Stage II pressure ulcer, sacral ala, Aquacel silver dressing. 5. Mildly recurrent cutaneous candidiasis. Local care with nystatin powder twice a day. MMODL / IJN: [id number] /
--- NOTE | 2018-03-07 09:32 | CDI ---
Last Revision, April 2017 Documentation Clarification Form Date: 03/07/2018 9:14:18 AM From: Celeste Velasco RN, CCDS Admit Date: 02/21/2018 11:05:00 PM Patient Name: Maddie Young Visit Number: [id number] Discharge Date: ATTENTION: The Clinical Documentation Specialists (CDI) and [facility] Coding Staff appreciate your assistance in clarifying documentation. Please respond to the clarification below the line at the bottom and electronically sign. The CDI & [facility] Coding staff will review the response and follow-up if needed. Please note: Queries are made part of the Legal Health Record. If you have any questions, please contact the author of this message via ITS. Isaiah Stubbs MD On 02/24/18 your reason for consultation was for a sacral wound. Your impression was a stage II sacral pressure ulcer with no evidence of any cellulitis. History/Risk Factors: Diabetes mellitus, Hypertension, Osteoarthritis Clinical Indicators: Stage II pressure ulcer was documented in the nursing wound assessment on 02/21/18 on the date of admission at 07:00. Patient did not recall any wound to the sacral area and denies any pain to that area. Treatment: Local wound care with Aquacel Silver dressing change every 48 hours. Keep pressure off area and keep it dry. Definition of Present on Admission (POA): A diagnosis present at the time the order for admission to inpatient status was written. For each diagnosis, documentation must be clear to determine if the condition was present at the time of the patients inpatient admission or developed during the hospital stay. Please clarify in progress notes as to whether Stage II pressure ulcer was: Y = Yes, the condition was present at the time of the order for inpatient admission. N = No, the condition was not present at the time of the order for inpatient admission. W = Clinically undetermined if the condition was present at the time of the order for inpatient admission. Please continue to document in your progress notes and discharge summary in order to capture severity of illness and risk of mortality. Include clinical findings that support your diagnosis. YES PRESENT ON ADMISSION MTDD
--- NOTE | 2018-03-07 11:12 | P.PN ---
Subjective on tc hospitalist covering for This is a pleasant 87 years old female with past medical history of diabetes mellitus, essential hypertension, osteoarthritis, hypothyroidism, who presents because of fall and fracture of left femur status post intramedullary nailing of the left distal femur fracture on 02/25/2018. Patient lying in bed comfortable not in distress. Patient denies chest pain. No dyspnea. No change in urine or bowel habits. No fever 02/25/2018 pt is more lethargic today , had fever 101 last night, and today 110.3. pt is status post fracture of left femur status post intramedullary nailing of the left distal femur fracture on 02/25/2018. pain looks controlled, pt UA is suggestive of infection , and CXR shows possible lower basilar pulmonary infiltrate, blood culture is negative , pt is started on zosy, she was on cefazolin, ID team are following the case and their input is appreciated, f/u UC , as per daughter at bed side pt has been treated before for pseudomanas UTI , pt currently has waters catheter . pt is started on lovenox for DVT px. 02/26/2018 Patient is more awake today and answering questions appropriately, however daughter at bedside think she is a little bit confused. Fever is improving. Blood pressure 167/73. Oxygen saturation 94% on 2 L oxygen via NC. Patient denies to me chest pain. No dyspnea. No coughing. No abdominal pain. She didn't have bowel movement but she started eating gradually for example sandwich. Patient is still have Waters catheter. As per daughter she didn't have a Waters catheter per to admission. We are comment to DC Waters catheter in place if that's is fine With the primary team. Labs from today are still pending. Cultures so far negative including UC: In the process. Patient remains on Zosyn for possible sepsis, as she had fever yesterday. Could be UTI rather than pneumonia. Her sugar was high and her metformin was increased from 250 to 500 twice a day. Follow-up glucose and labs. ID follow-up is appreciated. 02/27/2018 Patient was alert and awake today however she was in mild distress due to dyspnea. She was awake and she answers questions appropriately. IV fluids were stopped and patient given 1 dose of IV Lasix. Patient fever is improving and she is been afebrile for more than 24 hours. Vitas looks stable and oxygen saturation 92% and 2 L via nasal cannula. Pain at the surgical site controlled. Urine culture showing yeast species. Objective - Vital Signs Vital signs: Vital Signs Temp 98.2 F 02/27/18 07:00 Pulse 97 02/27/18 07:00 Resp 16 02/27/18 00:14 BP 110/63 02/27/18 07:00 Pulse Ox 95 02/27/18 00:14 Intake & Output 02/26/18 02/27/18 02/27/18 18:59 06:59 18:59 Intake Total 100 890 Output Total 300 525 150 Balance -200 365 -150 Weight 44.452 kg Intake: Intake, IV Titration 650 Amount Piperacillin-Tazobactam 3 50 .375 gm In Dextrose/Water 1 50ml.bag @ 12.5 mls/hr IVPB Q8HR [facility] Rx#: [id number] Sodium Chloride 0.9% 1, 100 000 ml @ 50 mls/hr IV . Q20H [facility] Rx#:[id number] Sodium Chloride 0.9% 500 500 ml 500 ml @ 999 mls/hr IV .Q31M [facility] Rx#:[id number] Oral 100 240 Output: Urine 300 525 150 Uretheral (Waters) 300 Other: Voiding Method Indwelling Catheter Indwelling Catheter Indwelling Catheter - Exam GENERAL: The patient is alert and oriented x3, not in any acute distress. Well developed, well nourished. HEENT: Pupils are round and equally reacting to light. EOMI. No scleral icterus. No conjunctival pallor. Normocephalic, atraumatic. No pharyngeal erythema. No thyromegaly. CARDIOVASCULAR: S1 and S2 present. No murmurs, rubs, or gallops. PULMONARY: Chest is clear to auscultation, no wheezing or crackles. ABDOMEN: Soft, nontender, nondistended, normoactive bowel sounds. No palpable organomegaly. MUSCULOSKELETAL: No joint swelling or deformity. EXTREMITIES: No cyanosis, clubbing, or pedal edema. -Left leg and thigh is in a dressing, further exam of the wound is deferred to the surgical primary team NEUROLOGICAL: Gross neurological examination did not reveal any focal deficits. SKIN: No rashes. - Labs CBC & Chem 7: 02/27/18 06:40 02/27/18 06:40 Labs: Abnormal Lab Results - Last 24 Hours (Table) 02/26/18 02/26/18 02/26/18 Range/Units 11:16 11:16 11:59 RBC 2.55 L (3.80-5.40) m/uL Hgb 8.1 L (11.4-16.0) gm/dL Hct 23.4 L (34.0-46.0) % Lymphocytes # 0.7 L (1.0-4.8) k/uL Sodium 135 L (137-145) mmol/L Potassium 3.4 L (3.5-5.1) mmol/L Creatinine 0.39 L (0.52-1.04) mg/dL Glucose 165 H (74-99) mg/dL POC Glucose (mg/dL) 173 H (75-99) mg/dL Calcium 7.8 L (8.4-10.2) mg/dL 02/26/18 02/26/18 02/27/18 Range/Units 16:52 20:11 06:40 RBC 2.54 L (3.80-5.40) m/uL Hgb 8.1 L (11.4-16.0) gm/dL Hct 23.3 L (34.0-46.0) % Lymphocytes # 0.6 L (1.0-4.8) k/uL Sodium (137-145) mmol/L Potassium (3.5-5.1) mmol/L Creatinine (0.52-1.04) mg/dL Glucose (74-99) mg/dL POC Glucose (mg/dL) 248 H 216 H (75-99) mg/dL Calcium (8.4-10.2) mg/dL 02/27/18 02/27/18 Range/Units 06:40 07:08 RBC (3.80-5.40) m/uL Hgb (11.4-16.0) gm/dL Hct (34.0-46.0) % Lymphocytes # (1.0-4.8) k/uL Sodium 136 L (137-145) mmol/L Potassium (3.5-5.1) mmol/L Creatinine 0.37 L (0.52-1.04) mg/dL Glucose 173 H (74-99) mg/dL POC Glucose (mg/dL) 269 H (75-99) mg/dL Calcium 7.5 L (8.4-10.2) mg/dL Microbiology - Last 24 Hours (Table) 02/24/18 20:08 Blood Culture - Preliminary Blood No Growth after 48 hours 02/24/18 20:30 Urine Culture - Preliminary Urine,Voided Yeast species Assessment and Plan Assessment: Fracture of the left distal femur, status post open reduction and internal fixation with intramedullary nailing History of fall UTI rather than pneumonia Type 2 diabetes mellitus Essential hypertension Degenerative joint disease Alzheimer dementia Plan: We recommend to continue with the same and treatment. Continue with symptomatic treatment. Resume home medication. Monitor lytes and vitals. We recommend DVT and GI prophylaxis. However DVT prophylaxis and pain management as per primary surgical team. Further recommendations based on the clinical course of the patient Prognosis is guarded Thank you for consulting us, please feel free to contact us for any further clarification or questions
== END 2018-02-28 13:51 | DRG 480 ==
LOC: EC 22:31 → 3SUR 23:05 → 4SSUR 02-25 07:31 → 3SUR 02-25 07:31 → 4SSUR 02-26 13:18
PROVIDERS: ADMIT Orthopaedic Surgery; ATTEND Orthopaedic Surgery
PROC: 0QSC36Z Reposition Left Lower Femur with Intramedullary Internal Fixation Device, Percutaneous Approach (ICD-10-PCS; principal; 2018-02-24 11:20)
DX: M97.12XA Periprosthetic fracture around internal prosthetic left knee joint, initial encounter (principal); J18.9 Pneumonia, unspecified organism; B37.49 Other urogenital candidiasis; M25.00 Hemarthrosis, unspecified joint; D62 Acute posthemorrhagic anemia; W07.XXXA Fall from chair, initial encounter; I10 Essential (primary) hypertension; M15.9 Polyosteoarthritis, unspecified; B37.2 Candidiasis of skin and nail; E03.9 Hypothyroidism, unspecified; E11.649 Type 2 diabetes mellitus with hypoglycemia without coma; F02.80 Dementia in other diseases classified elsewhere, unspecified severity, without behavioral disturbance, psychotic disturbance, mood disturbance, and anxiety; G30.1 Alzheimer's disease with late onset; Z79.82 Long term (current) use of aspirin; Z79.84 Long term (current) use of oral hypoglycemic drugs; Z96.653 Presence of artificial knee joint, bilateral; L89.611 Pressure ulcer of right heel, stage 1; L89.152 Pressure ulcer of sacral region, stage 2; E11.65 Type 2 diabetes mellitus with hyperglycemia
CPT/HCPCS: 71045; 80048; 80053; 81001; 83036; 84132; 85025; 85610; 87040; 87086; 93005; 99285

== ENCOUNTER 2018-03-05 07:36 | Inpatient (IN) | payer MEDICARE ==
--- NOTE | 2018-03-05 08:09 | ED ---
General Adult HPI - General Chief complaint: Fever Stated complaint: Fever Time Seen by Provider: 03/05/18 07:45 Source: patient, EMS, RN notes reviewed Mode of arrival: EMS Limitations: physical limitation - History of Present Illness Initial comments: This is an 87-year-old female who presents to the emergency department from a detention EKG she had a fever yesterday of 101. The report today was that they wanted her evaluated for this fever though she has not yet had a fever today. Patient herself complains of a little suprapubic abdominal pain aside from that she denies any chest pain she denies any palpitations difficulty breathing shortness of breath. Patient does state her left knee hurts but she recently had surgery on that knee. Patient does not know what the surgery was for. Patient is a poor historian. Patient denies any cough. Patient denies any vomiting or diarrhea. - Related Data Home Medications Medication Instructions Recorded Confirmed Acetaminophen Tab [Tylenol] 500 mg PO BID@0700,2100 12/22/17 03/05/18 Aspirin 81 mg PO DAILY@0800 12/22/17 03/05/18 Cholecalciferol [Vitamin D3] 1,000 unit PO DAILY@1700 12/22/17 03/05/18 Glimepiride [Amaryl] 2 mg PO BID@0800,1700 12/22/17 03/05/18 Levothyroxine Sodium [Synthroid] 25 mcg PO DAILY@0600 12/22/17 03/05/18 Losartan Potassium [Cozaar] 100 mg PO DAILY@0800 12/22/17 03/05/18 Multivitamins, Thera [Multivitamin 1 tab PO DAILY@1700 12/22/17 03/05/18 (formulary)] Frederica-3 Fatty Acids/Fish Oil [Fish 1 cap PO BID@0800,1700 12/22/17 03/05/18 Oil 1,000 mg Softgel] Bisacodyl [Dulcolax] 10 mg RECTAL DAILY PRN 03/05/18 03/05/18 Ferrous Sulfate [Feosol] 325 mg PO DAILY@1700 03/05/18 03/05/18 Glucerna Shake 120 ml PO TID-W/MEALS 03/05/18 03/05/18 Hydrocodone/Acetaminophen [[place] 1 tab PO Q6HR PRN 03/05/18 03/05/18 5-325] Insulin Aspart [NovoLOG See Protocol SQ ACHS 03/05/18 03/05/18 (formulary)] Magnesium Hydroxide [Milk of 2,400 mg PO DAILY PRN 03/05/18 03/05/18 Magnesia] Na Phos,M-B/Na Phos,Di-Ba [Fleet 133 ml RECTAL DAILY PRN 03/05/18 03/05/18 Adult] metFORMIN HCL [Glucophage] 500 mg PO DAILY@1700 03/05/18 03/05/18 Previous Rx's Medication Instructions Recorded Heparin Sodium,Porcine [Heparin 5,000 unit SQ Q12HR #60 vial 02/26/18 Sodium] Amoxicillin/Potassium Clav 1 tab PO BID 5 Days #10 tab 02/27/18 [Augmentin 875-125 Tablet] Pantoprazole [Protonix] 40 mg PO AC-[id number] tablet. 02/27/18 Allergies Allergy/AdvReac Type Severity Reaction Status Date / Time meperidine [From Demerol] Allergy Unknown Verified 03/05/18 08:03 Sulfa (Sulfonamide Allergy Unknown Verified 03/05/18 08:03 Antibiotics) Review of Systems ROS Statement: Those systems with pertinent positive or pertinent negative responses have been documented in the HPI. ROS Other: All systems not noted in ROS Statement are negative. Past Medical History Past Medical History: Diabetes Mellitus, Hypertension, Osteoarthritis (OA), Thyroid Disorder Additional Past Medical History / Comment(s): pneumonia, UTI 02/21/18 History of Any Multi-Drug Resistant Organisms: None Reported Past Surgical History: Cholecystectomy, Orthopedic Surgery Additional Past Surgical History / Comment(s): cataract, bilateral knees, neck surgery Past Psychological History: No Psychological Hx Reported Smoking Status: Never smoker Past Alcohol Use History: None Reported Past Drug Use History: None Reported - Past Family History Father History Unknown: Yes Mother History Unknown: Yes General Exam - General Exam Comments Initial Comments: GENERAL: Patient is well-developed and well-nourished. Patient is nontoxic and well- hydrated and is in no acute distress. ENT: Neck is soft and supple. No significant lymphadenopathy is noted. Oropharynx is clear. Moist mucous membranes. Neck has full range of motion without eliciting any pain. EYES: The sclera were anicteric and conjunctiva were pink and moist. Extraocular movements were intact and pupils were equal round and reactive to light. Eyelids were unremarkable. PULMONARY: Unlabored respirations. Good breath sounds bilaterally. No audible rales rhonchi or wheezing was noted. CARDIOVASCULAR: There is a regular rate and rhythm without any murmurs gallops or rubs. ABDOMEN: Soft and nontender with normal bowel sounds. No palpable organomegaly was noted. There is no palpable pulsatile mass. SKIN: Skin is clear with no lesions or rashes and otherwise unremarkable. NEUROLOGIC: Patient is alert and oriented x3. Cranial nerves II through XII are grossly intact. Motor and sensory are also intact. Normal speech, volume and content. Symmetrical smile. MUSCULOSKELETAL: Normal extremities with adequate strength and full range of motion. No lower extremity swelling or edema. No calf tenderness. LYMPHATICS: No significant lymphadenopathy is noted PSYCHIATRIC: Normal psychiatric evaluation. Normal interpersonal interactions appears functionally intact in deals appropriately with others. No signs of depression. No signs of anxiety. Limitations: physical limitation Course Vital Signs 03/05/18 07:43 Temperature 97.6 F Pulse Rate 82 Respiratory 18 Rate Blood Pressure 183/83 O2 Sat by Pulse 92 L Oximetry Medical Decision Making - Medical Decision Making EKG shows normal sinus rhythm at 79 bpm NV interval 152 QRS is 68 QT interval 374 QTC is 428. Patient's EKG shows no ST segment elevation or depression or T wave abnormalities are noted. Patient's x-ray showed bilateral infiltrates that could reflect pneumonia this in association with the patient's fever yesterday and the fact that the patient is a very poor historian and I am going to treat the patient with antibiotics and admit the patient. - Lab Data Result diagrams: 03/05/18 08:02 03/05/18 08:02 Lab Results 03/05/18 03/05/18 03/05/18 Range/Units 08:02 08:02 08:02 WBC 5.1 (3.8-10.6) k/uL RBC 3.05 L (3.80-5.40) m/uL Hgb 9.6 L (11.4-16.0) gm/dL Hct 28.9 L (34.0-46.0) % MCV 94.8 (80.0-100.0) fL MCH 31.4 (25.0-35.0) pg MCHC 33.2 (31.0-37.0) g/dL RDW 17.2 H (11.5-15.5) % Plt Count 408 (150-450) k/uL Neutrophils % 73 % Lymphocytes % 14 % Monocytes % 7 % Eosinophils % 3 % Basophils % 1 % Neutrophils # 3.7 (1.3-7.7) k/uL Lymphocytes # 0.7 L (1.0-4.8) k/uL Monocytes # 0.4 (0-1.0) k/uL Eosinophils # 0.1 (0-0.7) k/uL Basophils # 0.0 (0-0.2) k/uL Hypochromasia Moderate Poikilocytosis Marked Anisocytosis Slight Macrocytosis Slight PT (9.0-12.0) sec INR (<1.2) APTT (22.0-30.0) sec Sodium 137 (137-145) mmol/L Potassium 4.0 (3.5-5.1) mmol/L Chloride 102 (98-107) mmol/L Carbon Dioxide 29 (22-30) mmol/L Anion Gap 6 mmol/L BUN 10 (7-17) mg/dL Creatinine 0.30 L (0.52-1.04) mg/dL Est GFR (CKD-EPI)AfAm >90 (>60 ml/min/1.73 sqM) Est GFR (CKD-EPI)NonAf >90 (>60 ml/min/1.73 sqM) Glucose 152 H (74-99) mg/dL Plasma Lactic Acid Aly 0.9 (0.7-2.0) mmol/L Calcium 8.2 L (8.4-10.2) mg/dL Total Bilirubin 1.3 (0.2-1.3) mg/dL AST 36 (14-36) U/L ALT 34 (9-52) U/L Alkaline Phosphatase 71 (38-126) U/L Troponin I (0.000-0.034) ng/mL Total Protein 5.3 L (6.3-8.2) g/dL Albumin 2.8 L (3.5-5.0) g/dL Urine Color Urine Appearance (Clear) Urine pH (5.0-8.0) Ur Specific [place] (1.001-1.035) Urine Protein (Negative) Urine Glucose (UA) (Negative) Urine Ketones (Negative) Urine Blood (Negative) Urine Nitrite (Negative) Urine Bilirubin (Negative) Urine Urobilinogen (<2.0) mg/dL Ur Leukocyte Esterase (Negative) Urine WBC (0-5) /hpf Ur Squamous Epith Cells (0-4) /hpf Urine Bacteria (None) /hpf Influenza Type A RNA (Not Detectd) Influenza Type B (PCR) (Not Detectd) 03/05/18 03/05/18 03/05/18 Range/Units 08:02 08:02 08:21 WBC (3.8-10.6) k/uL RBC (3.80-5.40) m/uL Hgb (11.4-16.0) gm/dL Hct (34.0-46.0) % MCV (80.0-100.0) fL MCH (25.0-35.0) pg MCHC (31.0-37.0) g/dL RDW (11.5-15.5) % Plt Count (150-450) k/uL Neutrophils % % Lymphocytes % % Monocytes % % Eosinophils % % Basophils % % Neutrophils # (1.3-7.7) k/uL Lymphocytes # (1.0-4.8) k/uL Monocytes # (0-1.0) k/uL Eosinophils # (0-0.7) k/uL Basophils # (0-0.2) k/uL Hypochromasia Poikilocytosis Anisocytosis Macrocytosis PT 9.8 (9.0-12.0) sec INR 1.0 (<1.2) APTT 23.2 (22.0-30.0) sec Sodium (137-145) mmol/L Potassium (3.5-5.1) mmol/L Chloride (98-107) mmol/L Carbon Dioxide (22-30) mmol/L Anion Gap mmol/L BUN (7-17) mg/dL Creatinine (0.52-1.04) mg/dL Est GFR (CKD-EPI)AfAm (>60 ml/min/1.73 sqM) Est GFR (CKD-EPI)NonAf (>60 ml/min/1.73 sqM) Glucose (74-99) mg/dL Plasma Lactic Acid Aly (0.7-2.0) mmol/L Calcium (8.4-10.2) mg/dL Total Bilirubin (0.2-1.3) mg/dL AST (14-36) U/L ALT (9-52) U/L Alkaline Phosphatase (38-126) U/L Troponin I <0.012 (0.000-0.034) ng/mL Total Protein (6.3-8.2) g/dL Albumin (3.5-5.0) g/dL Urine Color Urine Appearance (Clear) Urine pH (5.0-8.0) Ur Specific [place] (1.001-1.035) Urine Protein (Negative) Urine Glucose (UA) (Negative) Urine Ketones (Negative) Urine Blood (Negative) Urine Nitrite (Negative) Urine Bilirubin (Negative) Urine Urobilinogen (<2.0) mg/dL Ur Leukocyte Esterase (Negative) Urine WBC (0-5) /hpf Ur Squamous Epith Cells (0-4) /hpf Urine Bacteria (None) /hpf Influenza Type A RNA Not Detected (Not Detectd) Influenza Type B (PCR) Not Detected (Not Detectd) 03/05/18 Range/Units 08:26 WBC (3.8-10.6) k/uL RBC (3.80-5.40) m/uL Hgb (11.4-16.0) gm/dL Hct (34.0-46.0) % MCV (80.0-100.0) fL MCH (25.0-35.0) pg MCHC (31.0-37.0) g/dL RDW (11.5-15.5) % Plt Count (150-450) k/uL Neutrophils % % Lymphocytes % % Monocytes % % Eosinophils % % Basophils % % Neutrophils # (1.3-7.7) k/uL Lymphocytes # (1.0-4.8) k/uL Monocytes # (0-1.0) k/uL Eosinophils # (0-0.7) k/uL Basophils # (0-0.2) k/uL Hypochromasia Poikilocytosis Anisocytosis Macrocytosis PT (9.0-12.0) sec INR (<1.2) APTT (22.0-30.0) sec Sodium (137-145) mmol/L Potassium (3.5-5.1) mmol/L Chloride (98-107) mmol/L Carbon Dioxide (22-30) mmol/L Anion Gap mmol/L BUN (7-17) mg/dL Creatinine (0.52-1.04) mg/dL Est GFR (CKD-EPI)AfAm (>60 ml/min/1.73 sqM) Est GFR (CKD-EPI)NonAf (>60 ml/min/1.73 sqM) Glucose (74-99) mg/dL Plasma Lactic Acid Aly (0.7-2.0) mmol/L Calcium (8.4-10.2) mg/dL Total Bilirubin (0.2-1.3) mg/dL AST (14-36) U/L ALT (9-52) U/L Alkaline Phosphatase (38-126) U/L Troponin I (0.000-0.034) ng/mL Total Protein (6.3-8.2) g/dL Albumin (3.5-5.0) g/dL Urine Color Yellow Urine Appearance Cloudy H (Clear) Urine pH 7.5 (5.0-8.0) Ur Specific [place] 1.012 (1.001-1.035) Urine Protein Negative (Negative) Urine Glucose (UA) Negative (Negative) Urine Ketones Negative (Negative) Urine Blood Negative (Negative) Urine Nitrite Negative (Negative) Urine Bilirubin Negative (Negative) Urine Urobilinogen 6.0 (<2.0) mg/dL Ur Leukocyte Esterase Large H (Negative) Urine WBC 41 H (0-5) /hpf Ur Squamous Epith Cells 15 H (0-4) /hpf Urine Bacteria Rare H (None) /hpf Influenza Type A RNA (Not Detectd) Influenza Type B (PCR) (Not Detectd) Disposition Clinical Impression: Pneumonia Disposition: ADMITTED IP TO THIS HOSP Referrals: Danial Dey MD [Primary Care Provider] - 1-2 days Time of Disposition: 10:21
[2018-03-05] MEDS: SODIUM CHLORIDE 0.9% 500 ML 500 ML IV SCH ×2 (08:30→10:00)
[2018-03-05 08:43] LABS: Anisocytosis Slight; Basophils % (A) 1 %; Eosinophils # (A) 0.1 k/uL (0-0.7); Eosinophils % (A) 3 %; HCT 28.9 % (34.0-46.0); HGB 9.6 gm/dL (11.4-16.0); Hypochromasia Moderate; Lymphocytes # (A) 0.7 k/uL (1.0-4.8); Lymphocytes % (A) 14 %; MCH 31.4 pg (25.0-35.0); MCHC 33.2 g/dL (31.0-37.0); MCV 94.8 fL (80.0-100.0); Macrocytosis Slight; Mean Platelet Volume 6.7; Monocytes # (A) 0.4 k/uL (0-1.0); Monocytes % (A) 7 %; Neutrophils # (A) 3.7 k/uL (1.3-7.7); Neutrophils % (A) 73 %; Platelet Count 408 k/uL (150-450); Poikilocytosis Marked; RBC 3.05 m/uL (3.80-5.40); RDW 17.2 % (11.5-15.5); WBC 5.1 k/uL (3.8-10.6)
--- NOTE | 2018-03-05 08:50 | XR ---
EXAMINATION TYPE: XR chest 2V DATE OF EXAM: 03/05/2018 COMPARISON: 02/22/2018 HISTORY: Shortness of breath TECHNIQUE: Frontal and lateral views of the chest are obtained. FINDINGS: Scattered senescent parenchymal changes noted. Hyperinflation compatible with COPD. Patchy basilar infiltrates may reflect pneumonia. Clinical correlation and progress studies are advis ed. Heart size is stable. Mediastinal structures are stable and grossly unremarkable. No evidence for hilar prominence. Degenerative changes dorsal spine. IMPRESSION: 1. Patchy basilar infiltrates may reflect pneumonia. Clinical correlation and progress studies are ad vised.
[2018-03-05 08:52] LABS: Appearance,Urine Cloudy (Clear); Bacteria,Urine Rare /hpf; Bilirubin,Urine Negative (Negative); Blood,Urine Negative (Negative); Color,Urine Yellow; Glucose,Urine (UA) Negative (Negative); Ketones,Urine Negative (Negative); Leukocyte Esterase,Urine Large (Negative); Nitrite,Urine Negative (Negative); PH, Urine 7.5 (5.0-8.0); Protein,Urine Negative (Negative); Specific Gravity,Urine 1.012 (1.001-1.035); Squamous Epithelial Cell,Urine 15 /hpf (0-4); WBC,Urine 41 /hpf (0-5)
[2018-03-05 08:52] LABS: ALT 34 U/L (9-52); AST 36 U/L (14-36); Albumin 2.8 g/dL (3.5-5.0); Alkaline Phosphatase 71 U/L (38-126); Anion Gap 6 mmol/L; Blood Urea Nitrogen 10 mg/dL (7-17); Calcium 8.2 mg/dL (8.4-10.2); Carbon Dioxide 29 mmol/L (22-30); Chloride 102 mmol/L (98-107); Glucose 152 mg/dL (74-99); Sodium 137 mmol/L (137-145); Total Bilirubin 1.3 mg/dL (0.2-1.3); Total Protein 5.3 g/dL (6.3-8.2)
[2018-03-05 08:56] LABS: Partial Thromboplastin Time 23.2 sec (22.0-30.0); Prothrombin Time 9.8 sec (9.0-12.0)
[2018-03-05] MEDS ORDERED: PNEUMONIA PROTOCOL UTILIZED 1 EACH MISC PO PRN (10:21)
[2018-03-05] MEDS ORDERED: LEVOFLOXACIN 750MG-D5W PMX 750 MG in DEXTROSE/WATER 1 150ML.BAG IVPB STA (10:21)
[2018-03-05] MEDS ORDERED: PIPERACILLIN-TAZOBACTAM 3.375 GM in DEXTROSE/WATER 1 50ML.BAG IVPB STA (10:21)
[2018-03-05] MEDS ORDERED: NA PHOS,M-B/NA PHOS,DI-BA 133 ML ENEMA RECTAL PRN (11:38)
[2018-03-05] MEDS ORDERED: BISACODYL 10 MG SUPP RECTAL PRN (11:38)
--- NOTE | 2018-03-05 11:44 | P.HPIM ---
History of Present Illness H&P Date: 03/05/18 Chief Complaint: Transferred from care home for fever The patient is a 87-year-old female a past medical history of type 2 diabetes, Essential hypertension, hypothyroidism who is transferred from [facility] for intermittent fevers. Apparently the patient was recently hospitalized here 02/21/18 and was recently discharged 02/28/18 after she had fallen injuring her left leg and was found to have a left distal femur fracture that underwent intramedullary nailing by Dr. Cabello 02/24/18. It appears the patient had also been seen by Dr. Newell and was being treated for a candidal UTI and left-sided pneumonia. Patient was prescribed Diflucan and was treated for pneumonia with Zosyn and transitioned to Augmentin on discharge. The patient herself is a poor historian and unable to give a significant history but she does report intermittent episodes of confusion, she denies any chest pain shortness of breath, but does report feeling weak and fatigued. She does report pain in the left hip and is currently nonweightbearing on the left lower extremity The patient has a right heel pressure ulcer and stage II sacral ulcer In the ER the patient had a comprehensive workup chest x-ray showed patchy basilar infiltrate, the patient was noted to be afebrile. WBC count 5.1, hemoglobin and hematocrit 9.6 and 28.9. Serum sodium level 137, potassium 4.0, BUN 10, creatinine 0.3, blood sugar 152, lactate 0.9, Urinalysis leukoesterase positive cloudy appearance urine WBC 41, with squamous epithelial cells, influenza A and B are negative. The patient was given a dose of Zosyn and Levaquin and recommended for admission Review of Systems Pertinent positives per HPI, all other review of systems are otherwise negative Past Medical History Past Medical History: Diabetes Mellitus, Hypertension, Osteoarthritis (OA), Thyroid Disorder Additional Past Medical History / Comment(s): pneumonia, UTI 02/21/18 History of Any Multi-Drug Resistant Organisms: None Reported Past Surgical History: Cholecystectomy, Orthopedic Surgery Additional Past Surgical History / Comment(s): cataract, bilateral knees, neck surgery Past Psychological History: No Psychological Hx Reported Smoking Status: Never smoker Past Alcohol Use History: None Reported Past Drug Use History: None Reported - Past Family History Father History Unknown: Yes Mother History Unknown: Yes Medications and Allergies Home Medications Medication Instructions Recorded Confirmed Type Acetaminophen Tab [Tylenol] 500 mg PO BID@0700,2100 12/22/17 03/05/18 History Aspirin 81 mg PO DAILY@0800 12/22/17 03/05/18 History Cholecalciferol [Vitamin D3] 1,000 unit PO DAILY@1700 12/22/17 03/05/18 History Glimepiride [Amaryl] 2 mg PO BID@0800,1700 12/22/17 03/05/18 History Levothyroxine Sodium [Synthroid] 25 mcg PO DAILY@0600 12/22/17 03/05/18 History Losartan Potassium [Cozaar] 100 mg PO DAILY@0800 12/22/17 03/05/18 History Multivitamins, Thera [Multivitamin 1 tab PO DAILY@1700 12/22/17 03/05/18 History (formulary)] Edison-3 Fatty Acids/Fish Oil [Fish 1 cap PO BID@0800,1700 12/22/17 03/05/18 History Oil 1,000 mg Softgel] Heparin Sodium,Porcine [Heparin 5,000 unit SQ Q12HR #60 vial 02/26/18 03/05/18 Rx Sodium] Amoxicillin/Potassium Clav 1 tab PO BID 5 Days #10 tab 02/27/18 03/05/18 Rx [Augmentin 875-125 Tablet] Pantoprazole [Protonix] 40 mg PO AC-[id number] tablet. 02/27/18 03/05/18 Rx Bisacodyl [Dulcolax] 10 mg RECTAL DAILY PRN 03/05/18 03/05/18 History Ferrous Sulfate [Feosol] 325 mg PO DAILY@1700 03/05/18 03/05/18 History Glucerna Shake 120 ml PO TID-W/MEALS 03/05/18 03/05/18 History Hydrocodone/Acetaminophen [[place] 1 tab PO Q6HR PRN 03/05/18 03/05/18 History 5-325] Insulin Aspart [NovoLOG See Protocol SQ ACHS 03/05/18 03/05/18 History (formulary)] Magnesium Hydroxide [Milk of 2,400 mg PO DAILY PRN 03/05/18 03/05/18 History Magnesia] Na Phos,M-B/Na Phos,Di-Ba [Fleet 133 ml RECTAL DAILY PRN 03/05/18 03/05/18 History Adult] metFORMIN HCL [Glucophage] 500 mg PO DAILY@1700 03/05/18 03/05/18 History Allergies Allergy/AdvReac Type Severity Reaction Status Date / Time meperidine [From Demerol] Allergy Unknown Verified 03/05/18 08:03 Sulfa (Sulfonamide Allergy Unknown Verified 03/05/18 08:03 Antibiotics) Physical Exam Vitals: Vital Signs Temp Pulse Resp BP Pulse Ox 03/05/18 07:43 97.6 F 82 18 183/83 92 L Intake and Output 03/04/18 03/05/18 03/05/18 22:59 06:59 14:59 Other: Weight 45.359 kg GENERAL: The patient is alert and oriented x3, not in any acute distress. Well developed, well nourished. HEENT: Pupils are round and equally reacting to light. EOMI. No scleral icterus. No conjunctival pallor. Normocephalic, atraumatic. No pharyngeal erythema. No thyromegaly. CARDIOVASCULAR: S1 and S2 present. No murmurs, rubs, or gallops. PULMONARY: Chest is clear to auscultation, no wheezing or crackles. ABDOMEN: Soft, nontender, nondistended, normoactive bowel sounds. No palpable organomegaly. MUSCULOSKELETAL: No joint swelling or deformity. EXTREMITIES: No cyanosis, clubbing, or pedal edema. -Left leg and thigh is in a dressing, left lower extremity immobilizer NEUROLOGICAL: Gross neurological examination did not reveal any focal deficits. SKIN: No rashes. Right heel wound, sacral decubital ulcer stage II Results CBC & Chem 7: 03/05/18 08:02 03/05/18 08:02 Labs: Abnormal Lab Results - Last 24 Hours (Table) 03/05/18 03/05/18 03/05/18 Range/Units 08:02 08:02 08:26 RBC 3.05 L (3.80-5.40) m/uL Hgb 9.6 L (11.4-16.0) gm/dL Hct 28.9 L (34.0-46.0) % RDW 17.2 H (11.5-15.5) % Lymphocytes # 0.7 L (1.0-4.8) k/uL Creatinine 0.30 L (0.52-1.04) mg/dL Glucose 152 H (74-99) mg/dL Calcium 8.2 L (8.4-10.2) mg/dL Total Protein 5.3 L (6.3-8.2) g/dL Albumin 2.8 L (3.5-5.0) g/dL Urine Appearance Cloudy H (Clear) Ur Leukocyte Esterase Large H (Negative) Urine WBC 41 H (0-5) /hpf Ur Squamous Epith Cells 15 H (0-4) /hpf Urine Bacteria Rare H (None) /hpf Assessment and Plan (1) Pneumonia Current Visit: Yes Status: Acute Code(s): J18.9 - PNEUMONIA, UNSPECIFIED ORGANISM SNOMED Code(s): 606864360 (2) Type 2 diabetes mellitus with hyperglycemia Current Visit: Yes Status: Acute Code(s): E11.65 - TYPE 2 DIABETES MELLITUS WITH HYPERGLYCEMIA SNOMED Code(s): 775360634612401 (3) Essential hypertension Current Visit: Yes Status: Acute Code(s): I10 - ESSENTIAL (PRIMARY) HYPERTENSION SNOMED Code(s): 43939590 (4) GERD (gastroesophageal reflux disease) Current Visit: Yes Status: Acute Code(s): K21.9 - GASTRO-ESOPHAGEAL REFLUX DISEASE WITHOUT ESOPHAGITIS SNOMED Code(s): 842304054 (5) Hypothyroidism Current Visit: Yes Status: Acute Code(s): E03.9 - HYPOTHYROIDISM, UNSPECIFIED SNOMED Code(s): 09461617 (6) Iron deficiency anemia Current Visit: Yes Status: Acute Code(s): D50.9 - IRON DEFICIENCY ANEMIA, UNSPECIFIED SNOMED Code(s): 96365950 (7) Sacral decubitus ulcer, stage II Current Visit: Yes Status: Acute Code(s): L89.152 - PRESSURE ULCER OF SACRAL REGION, STAGE 2 SNOMED Code(s): 370329253 Plan: The patient is placed on observation anticipate a less than 2 midnight stay with pneumonia possibly nosocomial to previous hospitalization recent discharge 02/28/18 and likely failed outpatient therapy after being discharged on Augmentin, patient hemodynamically stable, afebrile without leukocytosis. Agree with continuing antibiotics with IV Levaquin and Zosyn, will consult ID for further recommendations and wound care Recheck urinalysis with catheterized specimen. All of her home meds are resumed, resume home diabetic regimen with the exception of metformin, check A1c, Accu-Cheks with correctional scale insulin coverage. we'll continue to monitor clinical course. Patient placed on GI and DVT prophylaxis with PPI therapy & heparin respectively CODE STATUS full code DPOA daughter Nevin Anticipated discharge 1-2 days
[2018-03-05] MEDS ORDERED: IPRATROPIUM-ALBUTEROL 3 ML NEB INHALATION PRN (11:49)
[2018-03-05] MEDS ORDERED: GLUCERNA SHAKE PO SCH (12:30)
[2018-03-05] MEDS: IPRATROPIUM-ALBUTEROL 3 ML NEB INHALATION SCH ×4 (13:29→23:33)
[2018-03-05] MEDS: INSULIN ASPART 100 UNIT/ML 1 ML 10 ML VIAL SQ SCH ×3 (14:29→21:33)
[2018-03-05 16:41] LABS: Glucose,Whole Blood 185 mg/dL (75-99)
[2018-03-05] MEDS: MULTIVITAMINS, THERA 1 EACH TAB PO SCH (16:54)
[2018-03-05] MEDS: GLIMEPIRIDE 2 MG TAB PO SCH (16:54)
[2018-03-05] MEDS: CHOLECALCIFEROL 1,000 UNIT TAB PO SCH (16:54)
[2018-03-05] MEDS: metFORMIN 500 MG TAB PO SCH (16:54)
[2018-03-05] MEDS: FERROUS SULFATE 325 MG TAB PO SCH (16:54)
[2018-03-05] MEDS ORDERED: NON-FORMULARY DRUG (Omega-3 Fatty Acids/Fish Oil [Fish Oil 1,000 Mg Softgel] 1 CAP) PO SCH (17:00)
[2018-03-05] MEDS: HYDROcodone/APAP 5-325MG 1 EACH TAB PO PRN (19:23)
[2018-03-05] MEDS: PIPERACILLIN-TAZOBACTAM 3.375 GM in DEXTROSE/WATER 1 50ML.BAG IVPB SCH (20:36)
[2018-03-05] MEDS: ACETAMINOPHEN TAB 500 MG TAB PO SCH (20:39)
[2018-03-05] MEDS: HEPARIN SODIUM,PORCINE 5,000 UNIT/ML 1 ML VIAL SQ SCH (20:40)
[2018-03-05 20:50] LABS: Glucose,Whole Blood 206 mg/dL (75-99)
[2018-03-06] MEDS: IPRATROPIUM-ALBUTEROL 3 ML NEB INHALATION SCH ×6 (03:21→23:50)
[2018-03-06] MEDS: PIPERACILLIN-TAZOBACTAM 3.375 GM in DEXTROSE/WATER 1 50ML.BAG IVPB SCH ×3 (03:46→20:58)
[2018-03-06] MEDS: LEVOTHYROXINE 25 MCG TAB PO SCH (05:12)
[2018-03-06 05:32] LABS: Hemoglobin A1C 5.6 % (4.0-6.0)
[2018-03-06 07:31] LABS: Glucose,Whole Blood 167 mg/dL (75-99)
[2018-03-06] MEDS: INSULIN ASPART 100 UNIT/ML 1 ML 10 ML VIAL SQ SCH ×4 (07:53→20:58)
[2018-03-06] MEDS: ACETAMINOPHEN TAB 500 MG TAB PO SCH ×2 (07:53→20:57)
[2018-03-06] MEDS: ASPIRIN 81 MG PO SCH (07:54)
[2018-03-06] MEDS: PANTOPRAZOLE 40 MG TABLET PO SCH (07:54)
[2018-03-06] MEDS: LOSARTAN 50 MG TAB PO SCH (07:55)
[2018-03-06] MEDS: HEPARIN SODIUM,PORCINE 5,000 UNIT/ML 1 ML VIAL SQ SCH ×2 (07:55→20:57)
[2018-03-06] MEDS: GLIMEPIRIDE 2 MG TAB PO SCH ×2 (07:55→17:14)
[2018-03-06 09:23] LABS: Appearance,Urine Clear (Clear); Bilirubin,Urine Negative (Negative); Blood,Urine Negative (Negative); Color,Urine Yellow; Glucose,Urine (UA) Negative (Negative); Ketones,Urine 1+ (Negative); Leukocyte Esterase,Urine Negative (Negative); Nitrite,Urine Negative (Negative); PH, Urine 6.5 (5.0-8.0); Protein,Urine Negative (Negative); Specific Gravity,Urine 1.014 (1.001-1.035); Urobilinogen,Urine <2.0 mg/dL (<2.0)
--- NOTE | 2018-03-06 09:58 | CONS ---
CONSULTATION DATE OF SERVICE: 03/05/2018 REASON FOR CONSULTATION: Urinary tract infection. HISTORY OF PRESENT ILLNESS: The patient is an 87-year-old female who was recently admitted to this facility from 02/21 to 02/28 where the patient did have left leg slight distal femoral fracture status post intramedullary nailing done by Dr. Cabello on 02/24/2018. The patient also have a component of UTI. Urine did show a cannula and possible aspiration pneumonitis for which the patient was treated with Zosyn and subsequent [facility] to [facility] on a short course of oral Augmentin and Diflucan. The patient apparently has been sent back to the [facility] ER for evaluation of weakness and fatigue and apparently her symptoms have been going on for the last 2-3 days at the [facility] and apparently the patient also had a fever of 101 degrees Fahrenheit at the [facility] yesterday: however, no fever was recorded today. With these symptoms, the patient has been evaluated by the ER physician. Patient did have a chest x-ray, some patchy bibasilar infiltrate may reflect pneumonia. Clinical correlation requested. Patient's white count was normal at 5.1, BUN and creatinine have been normal. Urine was large leukocyte esterase with 41 WBCs. Influenza A and B PCR has been negative. Patient subsequently has been admitted to the hospital. where the patient will be started on Levaquin and Zosyn. Infectious Disease was consulted for further recommendation of antibiotic therapy. Most of the information has been obtained from prior review of the chart and talking to nursing staff. The patient is not a very good historian. REVIEW OF SYSTEMS: Could not be reliably obtained. The positive points have been mentioned in HPI. PAST MEDICAL HISTORY: Significant for a recent fall with left leg fracture, diabetes mellitus, hypertension, osteoarthritis, hypothyroidism, pneumonia and UTI. PAST SURGICAL HISTORY: Bilateral knee replacement, surgical neck surgery, cholecystectomy, and recent femoral intramedullary nailing for a fracture. SOCIAL HISTORY: No history of smoking, drinking or drug use. FAMILY HISTORY: No pertinent findings noticed. ALLERGIES: SULFA and MEPERIDINE. Medication currently include the patient is on Zosyn, Protonix, Theragran, Glucophage, Cozaar, levofloxacin, NovoLog, heparin; Amaryl, iron sulfate, Dulcolax, aspirin, DuoNeb, [place] and Tylenol. PHYSICAL EXAMINATION: Blood pressure 123/71 with a pulse of 89, temperature 97.1. she is 90% on room air. General description is an elderly female, lying in bed in no distress. No tachypnea or accessory muscle for respiration use. HEENT: Examination shows slight pallor. No scleral icterus. Oral mucosa is dry. No pharyngeal erythema or thrush. NECK: Trachea central, no thyromegaly. LUNGS: Unlabored breathing with decreased breath sounds at the bases, no wheeze. HEART: S1, S2. Regular rate and rhythm. ABDOMEN: Soft, no tenderness. No rigidity. EXTREMITIES: No edema of the feet. Examination did show significant bruise on the hip area. NEUROLOGICAL: Patient is pleasantly confused. Orientation could not be determined. No agitation was noticed. LABS: Hemoglobin 9.3, white count 5.1, BUN of 10, creatinine 0.30. White count has been normal. Liver enzymes are normal. U urine has been mildly positive. Influenza serology was negative. DIAGNOSTIC IMPRESSION AND PLAN: Patient with admission to hospital with a fever in a patient who recently did have a left femoral fracture, status post intramedullary nailing. At that time, she also had a urinary tract infection, possible aspiration pneumonitis in a patient now with evidence of the bibasilar failure concern for possible pneumonia, possible gram- negative. The patient did have a positive underlying urinary tract infection and excluded. PLAN: 1. Will try to obtain sputum for Gram stain culture and sensitivity. 2. Patient will be treated with broad-spectrum antibiotic in the form of Zosyn and Levaquin to cover for both UTI as well as pneumonia. 3. Aquacel Silver dressing to the sacral wound which to 48 hours and keep the area off the pressure. 4. We will follow up on clinical condition and culture to further adjust medication if needed. Thank you for this consultation. Will follow the patient along with you. MMODL / IJN: [id number] /
[2018-03-06] MEDS: LEVOFLOXACIN 750MG-D5W PMX 750 MG in DEXTROSE/WATER 1 150ML.BAG IVPB SCH (11:16)
[2018-03-06 11:34] LABS: Glucose,Whole Blood 181 mg/dL (75-99)
--- NOTE | 2018-03-06 12:53 | P.PN ---
Subjective Progress Note Date: 03/06/18 Principal diagnosis: fevers Patient is an 87-year-old female with a past medical history of diabetes mellitus type 2 on orals with good control, essential hypertension, hypothyroidism, and recent distal femoral fracture who presented to the hospital from [facility] for intermittent fevers. Patient was hospitalized here from 1009 through 1016 for fall with leg fracture complicated by pneumonia and Mary UTI. She had been placed on Diflucan and Augmentin on discharge. In the ER she underwent an extensive workup. She was found to be afebrile with a normal white blood cell count. Hemoglobin was 9.6 which was elevated from discharge. Her urine showed possible urinary tract infection but squamous epithelial cells were present. Influenza A and B was negative. Chest x-ray showed possible bilateral infiltrates. She was given a dose of Zosyn and Levaquin and was admitted as observation. Repeat urinalysis done with straight cath which was no longer contaminated specimen ruled out any signs of urinary tract infection. Urine culture was negative at 24 hours. Infectious disease was consulted who recommended continuing with broad spectrum antibiotics. Patient unable to produce sputum sample. Patient seen and examined at bedside. Patient is chronically incontinent of urine. She denies any dysuria or change in urine odor. She is not having any cough or change in shortness of breath. No abdominal pain, diarrhea, nausea, or vomiting. Feeling much better, but still not perfect. No low blood sugars. Heal without blemishes. Objective - Vital Signs Vital signs: Vital Signs Temp 96.3 F L 03/06/18 05:56 Pulse 88 03/06/18 11:01 Resp 24 03/06/18 05:56 BP 174/82 03/06/18 05:56 Pulse Ox 91 L 03/06/18 05:56 Intake & Output 03/05/18 03/06/18 03/06/18 18:59 06:59 18:59 Intake Total 600 100 Output Total 331 Balance 600 100 -331 Weight 45.359 kg Intake: IV 100 Piperacillin-Tazobactam 3 50 .375 gm In Dextrose/Water 1 50ml.bag @ 12.5 mls/hr IVPB ONCE STA Rx#: [id number] Piperacillin-Tazobactam 3 50 .375 gm In Dextrose/Water 1 50ml.bag @ 12.5 mls/hr IVPB [facility] Rx#: [id number] Oral 600 Output: Urine 331 Straight 330 Other: Voiding Method Incontinent # Voids 2 2 # Bowel Movements 1 1 1 - Exam General: non toxic, no distress, appears at stated age Derm: Right heel with area of bogginess, no discharge, no warmth, Orin intact warm, dry Head: atraumatic, normocephalic, symmetric Eyes: EOMI, no lid lag, anicteric sclera Mouth: no lip lesion, mucus membranes moist Cardiovascular: S1S2 reg, no murmur, positive posterior tibial pulse bilateral, Lungs: Decreased breath sounds bilateral bases, no rhonchi, no rales , no accessory muscle use Abdominal: soft, nontender to palpation, no guarding, no appreciable organomegaly Ext: no gross muscle atrophy, no edema, no contractures Neuro: CN II-XI grossly intact, no focal neuro deficits Psych: Alert, oriented, appropriate affect - Labs CBC & Chem 7: 03/05/18 08:02 03/05/18 08:02 Labs: Abnormal Lab Results - Last 24 Hours (Table) 03/05/18 03/05/18 03/06/18 Range/Units 16:35 20:49 07:14 POC Glucose (mg/dL) 185 H 206 H 167 H (75-99) mg/dL Urine Ketones (Negative) 03/06/18 03/06/18 Range/Units 09:00 11:31 POC Glucose (mg/dL) 181 H (75-99) mg/dL Urine Ketones 1+ H (Negative) Microbiology - Last 24 Hours (Table) 03/05/18 08:26 Urine Culture - Final Urine,Catheterized 03/05/18 08:02 Blood Culture - Preliminary Blood No Growth after 24 hours Assessment and Plan Assessment: Pneumonia, bilateral -Appears to be responding appropriately to treatment therapy. Infectious disease recommendations appreciated. Patient has been afebrile without await blood cell count this admission it appears that her pneumonia is well treated. -A urinary tract infection ruled out with negative culture and negative repeat UA via straight cath -Repeat CBC in a.m. and monitor fever profile -Anticipate discharge back to [facility] in a.m. Excessive nighttime diaphoresis -Concerns for possible hypo-glycemia with patient taking Amaryl and metformin -Check blood sugars at 2 AM and 5 AM as well as vital signs to rule out symptomatic bradycardia or hypotension Diabetes mellitus type 2 -Continue with metformin and Amaryl skin accurate assessment of possible nocturnal hypoglycemia -Sliding-scale insulin -Hemoglobin A1c 5.6 Generalized weakness -Check TSH, B12, and vitamin D levels -Continue with PT and OT Acute blood loss anemia related to recent surgery -Improving -No need for further inpatient testing -No need for iron therapy Recent femoral fracture -Consult or so to see if robert can be removed and uses apical for patient to come to clinic for outpatient follow-up Stage II sacral ulcer -Infectious disease recommendations appreciated. Order placed for Aquasol Silver to sacral area change every 48 hours Hypertension -Continue with Cozaar -Follow blood pressures Left ear laceration with sutures in place -Ears completely healed on examination -Nursing to remove sutures DVT prophylaxis: Heparin Discussed with: Patient, nursing, patients daughter Anticipated discharge: 24-[address]: Return to [facility] A total of 35 minutes was spent on the care of this complex patient more than 50 % of the time was spent in counseling and care coordination.
[2018-03-06 14:48] VITALS: BMI 20.9
--- NOTE | 2018-03-06 15:00 | XR ---
EXAMINATION TYPE: XR chest 2V DATE OF EXAM: 03/06/2018 COMPARISON: NONE HISTORY: Pneumonia and cough TECHNIQUE: Frontal and lateral views of the chest are obtained. 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 This shifts the mediastinum to the right. There is diffuse osseous demineralization and degenerative changes of t he right shoulder. Cardia mediastinal silhouette is within normal limits. Hazy opacity over the left hemidiaphragm isn't reproduced on the lateral image. Remainder the lungs are clear. Pulmonary hyperin flation relates underlying COPD. Cholecystectomy clips are noted in the right upper quadrant. Surgica l change of the cervical spine is also noted. IMPRESSION: Ill-defined hazy opacity over the left lung base may represent atelectasis or developing pneumonia in the appropriate clinical setting.
[2018-03-06] MEDS: CHOLECALCIFEROL 1,000 UNIT TAB PO SCH (17:14)
[2018-03-06] MEDS: HYDROcodone/APAP 5-325MG 1 EACH TAB PO PRN (17:14)
[2018-03-06] MEDS: metFORMIN 500 MG TAB PO SCH (17:14)
[2018-03-06] MEDS: FERROUS SULFATE 325 MG TAB PO SCH (17:14)
[2018-03-06] MEDS: MULTIVITAMINS, THERA 1 EACH TAB PO SCH (17:14)
[2018-03-06 17:25] LABS: Glucose,Whole Blood 228 mg/dL (75-99)
[2018-03-06 20:42] LABS: Glucose,Whole Blood 229 mg/dL (75-99)
--- NOTE | 2018-03-06 22:46 | PN ---
PROGRESS NOTE DATE OF SERVICE: 03/06/2018. REASON FOR FOLLOW UP: 1. UTI. 2. Possible pneumonia. 3. Sacral wound. INTERVAL HISTORY: The patient is afebrile. She is more awake and alert today. She is breathing comfortably. Denies significant chest pain. Minimal cough. No abdominal pain. No diarrhea. EXAMINATION: Blood pressure 139/75 with a pulse of 89, temperature 98.1. She is 95% on 2 L nasal cannula. General description is an elderly female lying in bed in no distress. Respiratory system: Unlabored breathing with decreased breath sounds at the bases. No wheeze. Heart S1, S2. Regular rate and rhythm. Abdomen soft, no tenderness. LABS: No CBC was today or BMP. Repeat UA this morning has been clear. DIAGNOSTIC IMPRESSION/PLAN: 1. Patient admitted to the hospital with fever at the custodial with concern for possible pneumonia and urinary tract infection, repeat UA has been negative that will make it to be less likely the source of her fever. X-ray still showing an ill- defined hazy opacity over the left lung base. The patient seemed to be responding to the Zosyn that will be continued. We will try to obtain a sputum to narrow down antibiotics. 2. Patient with stage II sacral wound. Local wound care with Aquacel silver dressing. Keep the area off the pressure and dry. 3. Right heel stage I pressure ulcer. Recommend heel protectors and keep the area dry and off the pressure. MMODL / IJN: [id number] /
[2018-03-07] MEDS: HYDROcodone/APAP 5-325MG 1 EACH TAB PO PRN ×2 (02:39→09:59)
[2018-03-07 02:46] LABS: Glucose,Whole Blood 189 mg/dL (75-99)
[2018-03-07] MEDS: PIPERACILLIN-TAZOBACTAM 3.375 GM in DEXTROSE/WATER 1 50ML.BAG IVPB SCH ×3 (04:02→21:27)
[2018-03-07 05:11] LABS: Glucose,Whole Blood 185 mg/dL (75-99)
[2018-03-07] MEDS: IPRATROPIUM-ALBUTEROL 3 ML NEB INHALATION SCH ×5 (05:11→20:22)
[2018-03-07] MEDS: LEVOTHYROXINE 25 MCG TAB PO SCH (05:59)
[2018-03-07] MEDS: ACETAMINOPHEN TAB 500 MG TAB PO SCH ×2 (05:59→21:26)
[2018-03-07 07:27] LABS: Glucose,Whole Blood 187 mg/dL (75-99)
[2018-03-07] MEDS: INSULIN ASPART 100 UNIT/ML 1 ML 10 ML VIAL SQ SCH ×4 (08:05→21:26)
[2018-03-07] MEDS: LOSARTAN 50 MG TAB PO SCH (08:06)
[2018-03-07] MEDS: GLIMEPIRIDE 2 MG TAB PO SCH ×2 (08:06→17:15)
[2018-03-07] MEDS: ASPIRIN 81 MG PO SCH (08:06)
[2018-03-07] MEDS: PANTOPRAZOLE 40 MG TABLET PO SCH (08:06)
[2018-03-07] MEDS: amLODIPine 5 MG TAB PO SCH (08:09)
[2018-03-07] MEDS: HEPARIN SODIUM,PORCINE 5,000 UNIT/ML 1 ML VIAL SQ SCH ×2 (08:09→21:26)
[2018-03-07 09:19] LABS: Anisocytosis Slight; HCT 31.3 % (34.0-46.0); Hypochromasia Moderate; MCV 96.7 fL (80.0-100.0); Macrocytosis Slight; Mean Platelet Volume 6.6; Platelet Count 394 k/uL (150-450); Poikilocytosis Moderate; RBC 3.24 m/uL (3.80-5.40); RDW 17.8 % (11.5-15.5); WBC 4.7 k/uL (3.8-10.6)
[2018-03-07 09:31] LABS: Anion Gap 7 mmol/L; Blood Urea Nitrogen 10 mg/dL (7-17); Calcium 8.5 mg/dL (8.4-10.2); Carbon Dioxide 28 mmol/L (22-30); Chloride 103 mmol/L (98-107); Glucose 165 mg/dL (74-99); Potassium 4.1 mmol/L (3.5-5.1); Sodium 138 mmol/L (137-145)
[2018-03-07] MEDS: LEVOFLOXACIN 750MG-D5W PMX 750 MG in DEXTROSE/WATER 1 150ML.BAG IVPB SCH (09:52)
[2018-03-07 12:18] LABS: Glucose,Whole Blood 236 mg/dL (75-99)
--- NOTE | 2018-03-07 12:53 | P.DS ---
Providers Date of admission: 03/06/18 13:44 Expected date of discharge: 03/07/18 Attending physician: Pavan Damian MD Consults: 03/05/18 11:37 Consult Physician Routine Consulting Provider: Isaiah Newell Consult Reason/Comments: Antibiotic management Do you want consulting provider notified?: Yes 03/06/18 12:25 Consult Physician Routine Consulting Provider: ePdro Cabello Consult Reason/Comments: ? Okay to remove robert from recent femural fracture surgery Do you want consulting provider notified?: Yes Primary care physician: Danial Dey MD Hospital Course: Discharge Diagnosis: 1. Resolving pneumonia 2. Completely resolved urinary tract infection 3. Hypertensive urgency 4. Generalized weakness 5. Dysphoric mood disorder, situational depression 6. Diabetes mellitus type 2 with A1c 5.6 7. Excessive nighttime diaphoresis, hypoglycemia ruled out patient with significant nocturnal hypertension 8. Acute blood loss anemia 7. recent femoral fracture 8. stage II sacral decubitus ulcer, present on admission 9. Hypertension 10. Left ear laceration Hospital Course: Patient is an 87-year-old female with a past medical history of diabetes mellitus type 2 on orals with good control, essential hypertension, hypothyroidism, and recent distal femoral fracture who presented to the hospital from [facility] for intermittent fevers. Patient was hospitalized here from 1009 through 1016 for fall with leg fracture complicated by pneumonia and Mary UTI. She had been placed on Diflucan and Augmentin on discharge. In the ER she underwent an extensive workup. She was found to be afebrile with a normal white blood cell count. Hemoglobin was 9.6 which was elevated from discharge. Her urine showed possible urinary tract infection but squamous epithelial cells were present. Influenza A and B was negative. Chest x-ray showed possible bilateral infiltrates. She was given a dose of Zosyn and Levaquin and was admitted as observation. Repeat urinalysis done with straight cath which was no longer contaminated specimen ruled out any signs of urinary tract infection. Urine culture was negative at 24 hours. Infectious disease was consulted who recommended continuing with broad spectrum antibiotics. Patient unable to produce sputum sample. CXR followed which showed improvement over her course here. She had no documented fevers. She did have morning diaphoresis. We did check a TSH which was normal, B12, and vitamin D all within normal limits. Nocturnal blood sugars were checked which did not show hypoglycemia. Nocturnal blood pressure was checked which does elevate to 190. Norvasc was added which adequately controlled her blood pressures. Patient complain of insomnia and nasal congestion. Recommendations were to start melatonin, Claritin, and Flonase. She is having some situational depression regarding her stay we discussed the possibility of starting an antidepressant but she was unsure if she wanted to start this. I encouraged her to [facility] it [facility]. We also discussed possible palliative care with her daughter at length. On the day of discharge she was seen by orthopedic surgery. His determine her robert were safe to remove. Patient seen and examined at bedside. [place] of depression. Overall pain and generalized weakness. She is overall just displeased with frustrated with being nonweightbearing and not being able to move. She also complains of having some insomnia after her fracture. We discussed starting melatonin and she is in agreement with this. We also discussed her current prognosis. She feels though she has outlived her usefulness and that she should've prior. She is not actively suicidal. Did discuss with her and her daughter over the phone palliative care. Discussed with her that she is stable to leave from medical standpoint minute will be several weeks until she is feeling better. Vital signs reviewed and stable. General: non toxic, no distress, appears at stated age Derm: warm, dry Head: atraumatic, normocephalic, symmetric Eyes: EOMI, no lid lag, anicteric sclera Mouth: no lip lesion, mucus membranes moist Cardiovascular: S1S2 reg, no murmur, positive posterior tibial pulse bilateral, Lungs: CTA bilateral, no rhonchi, no rales , no accessory muscle use Abdominal: soft, nontender to palpation, no guarding, no appreciable organomegaly Ext: no gross muscle atrophy, no edema, no contractures Neuro: CN II-XI grossly intact, no focal neuro deficits Psych: Alert, oriented, affect A total of 65 minutes of time were spent preparing this complex discharge summary . On discharge, the patient has been prescribed [place] 5/325 for the treatment of acute pain. They have been provided a 6 day supply and MAPS was checked on . I have counseled them on the risk of opiate medications including addiction and overdose. We also discussed that mixing opiate medications with benzodiazepines, alcohol, muscle relaxers, and other drugs that depress the central nervous system can lead to serious health risks including overdose, , and disability. I informed them that it is a felony to illegally deliver , sell, or share a controlled substance. I have instructed them that unused opiates can be disposed of at a drug takeback location, which includes the [facility] and the [facility]. The Opioid start talking form has been signed her previous hospitalization and dose has not been changed. I have referred them back to their primary care physician for follow-up care. Pertinent Studies: Chest [id number] pneumonia, compared with prior chest x-ray and appears to be improvement as reviewed by myself Patient Condition at Discharge: Stable Plan - Discharge Summary Discharge Rx Participant: No New Discharge Prescriptions: New Albuterol Inhaler [Ventolin Hfa Inhaler] 1 - 2 puff INHALATION RT-Q6H PRN #1 inhaler PRN Reason: Shortness Of Breath Or Wheezing amLODIPine [Norvasc] 5 mg PO HS tab Fluticasone Nasal M[place]od [Flonase Nasal M[place]od] 2 spray EA NOSTRIL DAILY spr Levofloxacin [Levaquin] 750 mg PO DAILY 3 Days #3 tab Melatonin 5 mg PO HS tablet Continue Aspirin 81 mg PO DAILY@0800 Multivitamins, Thera [Multivitamin (formulary)] 1 tab PO DAILY@1700 Losartan Potassium [Cozaar] 100 mg PO DAILY@0800 Glimepiride [Amaryl] 2 mg PO BID@0800,1700 Levothyroxine Sodium [Synthroid] 25 mcg PO DAILY@0600 Cholecalciferol [Vitamin D3] 1,000 unit PO DAILY@1700 Acetaminophen Tab [Tylenol] 500 mg PO BID@0700,2100 Heparin Sodium,Porcine [Heparin Sodium] 5,000 unit SQ Q12HR #60 vial Amoxicillin/Potassium Clav [Augmentin 875-125 Tablet] 1 tab PO BID 5 Days # 10 tab Pantoprazole [Protonix] 40 mg PO AC-BRKFST tablet. Bisacodyl [Dulcolax] 10 mg RECTAL DAILY PRN PRN Reason: Constipation Ferrous Sulfate [Iron (65 MG Elemental)] 325 mg PO DAILY@1700 Glucerna Shake 120 ml PO TID-W/MEALS Magnesium Hydroxide [Milk of Magnesia] 2,400 mg PO DAILY PRN PRN Reason: Constipation metFORMIN HCL [Glucophage] 500 mg PO DAILY@1700 Na Phos,M-B/Na Phos,Di-Ba [Fleet Adult] 133 ml RECTAL DAILY PRN PRN Reason: Constipation Hydrocodone/Acetaminophen [[place] 5-325] 1 tab PO Q6HR PRN #21 tablet PRN Reason: Pain Discontinued [place]-3 Fatty Acids/Fish Oil [Fish Oil 1,000 mg Softgel] 1 cap PO BID@0800, 1700 Insulin Aspart [NovoLOG (formulary)] See Protocol SQ ACHS Discharge Medication List Acetaminophen Tab [Tylenol] 500 mg PO BID@0700,2100 12/22/17 [History] Aspirin 81 mg PO DAILY@0800 12/22/17 [History] Cholecalciferol [Vitamin D3] 1,000 unit PO DAILY@1700 12/22/17 [History] Glimepiride [Amaryl] 2 mg PO BID@0800,1700 12/22/17 [History] Levothyroxine Sodium [Synthroid] 25 mcg PO DAILY@0600 12/22/17 [History] Losartan Potassium [Cozaar] 100 mg PO DAILY@0800 12/22/17 [History] Multivitamins, Thera [Multivitamin (formulary)] 1 tab PO DAILY@1700 12/22/17 [ History] Heparin Sodium,Porcine [Heparin Sodium] 5,000 unit SQ Q12HR #60 vial 02/26/18 [ Rx] Amoxicillin/Potassium Clav [Augmentin 875-125 Tablet] 1 tab PO BID 5 Days #10 tab 02/27/18 [Rx] Pantoprazole [Protonix] 40 mg PO AC-BRKFST tablet. 02/27/18 [Rx] Bisacodyl [Dulcolax] 10 mg RECTAL DAILY PRN 03/05/18 [History] Ferrous Sulfate [Iron (65 MG Elemental)] 325 mg PO DAILY@1700 03/05/18 [History] Glucerna Shake 120 ml PO TID-W/MEALS 03/05/18 [History] Magnesium Hydroxide [Milk of Magnesia] 2,400 mg PO DAILY PRN 03/05/18 [History] Na Phos,M-B/Na Phos,Di-Ba [Fleet Adult] 133 ml RECTAL DAILY PRN 03/05/18 [ History] metFORMIN HCL [Glucophage] 500 mg PO DAILY@1700 03/05/18 [History] Albuterol Inhaler [Ventolin Hfa Inhaler] 1 - 2 puff INHALATION RT-Q6H PRN #1 inhaler 03/07/18 [Rx] Fluticasone Nasal Mcleod [Flonase Nasal Mcleod] 2 spray EA NOSTRIL DAILY spr [Rx] Hydrocodone/Acetaminophen [[place] 5-325] 1 tab PO Q6HR PRN #21 tablet 03/07/18 [ Rx] Levofloxacin [Levaquin] 750 mg PO DAILY 3 Days #3 tab 03/07/18 [Rx] Melatonin 5 mg PO HS tablet 03/07/18 [Rx] amLODIPine [Norvasc] 5 mg PO HS tab 03/07/18 [Rx] Follow up Appointment(s)/Referral(s): Danial Dey MD [Primary Care Provider] - 1-2 days Tex Grijalva, [NON-STAFF] - As Needed Kameron Dawson PAC [PHYSICIAN TRAIN SYSTEM OPERATOR] - 1 Week Activity/Diet/Wound Care/Special Instructions: Carb consistent diet Non weight bearing left lower extremity Hemoglobin A1C is 5.6 could consider coming off Glimepiride. Check Vitals 3 times daily had high night time blood pressure. Consider Palliative care if available at facility. Orthopedic Discharge Instructions: 1. Wound care and infection precautions, keep incision dry and covered while showering, no lotions, creams, moisturizers. No soaking, pools, hot tubs. Do not scrub over incision. 2. Nonweightbearing left lower extremity 3. Ice and elevate when necessary. Do not exceed 20 minutes per hour with ice pack. 4. Utilize compression sleeve until seen at first follow up appointment. 5. Pain meds and anticoagulants per prescription. 6. Pain medication has potential to cause constipation. Increase oral fluid and fiber intake. Contact primary care provider if you have not had a bowel movement within 48 hours after discharge. 7. No anti-inflammatory medication until discussed at first post operative visit, this including Motrin, Aleve, Mobic, Diclofenac.
--- NOTE | 2018-03-07 12:56 | P.PN ---
Progress Note - Text Progress Note Date: 03/07/18 Advanced care planning no: Diagnoses: Hypertension, diabetes, recent femoral fracture Discussion with: Patient at bedside, daughter over phone Discussion: Patient is struggling with some depression regarding being nonweightbearing status and feeling as though she's outlived her usefulness. We had a long discussion regarding her current goals of care. She is unsure what she still is finding lacho in but no she wants to continue able to walk and progress. She is frustrated with lack of sleep and increased pain. We discussed changing her pain regimen and adding melatonin to see if this would help. We also discussed starting an antidepressant to help she will like to discuss this with her doctor at [facility]. We discussed possible palliative care services and she would be willing to discuss with palliative further. I informed her I'm unsure if his available at her facility but I will recommend this on discharge. At this point in time she believes she would want to continue to be hospitalized for urgent matters that are readily reversible. If things are not reversible she would not want aggressive treatment. Also discussed with her daughter over the phone for 17 minutes. We discussed the findings of her current medical tests and procedures. We also discussed her overall level of depression over the last 2 years and feeling as though she is outlived her usefulness here in society. We discussed possible options of palliative care and treatment of her depression. Daughter will continue to follow with her mother and see if her mood improves as her pain in sleep improves. If not she is willing to consider palliative care. I again included this on my discharge recommendations to her [place] [facility]. A total of 25 minutes of [id number] time was spent discussing advance care planning including possible palliative care services.
[2018-03-07] MEDS: LORATADINE 10 MG TAB PO SCH (13:00)
--- NOTE | 2018-03-07 14:26 | XR ---
EXAMINATION TYPE: XR chest 1V portable DATE OF EXAM: 03/07/2018 COMPARISON: Prior chest 03/05/2018 and 03/06/2018 HISTORY: Pneumonia, congestion TECHNIQUE: Single frontal view of the chest is obtained. FINDINGS: There is no pleural effusion or pneumothorax seen. Biapical increased attenuation is stabl e. Patchy basilar density is again noted. The cardiac silhouette size is stable, possibly enlarged, p atient is rotated. Right shoulder is high riding suggesting chronic rotator cuff tear. Postop change s are noted to the cervical spine. The aorta is dense. The osseous structures are intact. IMPRESSION: There may be basilar atelectasis or scarring. Follow-up PA and lateral chest x-ray may b e of benefit.
[2018-03-07] MEDS: MULTIVITAMINS, THERA 1 EACH TAB PO SCH (17:15)
[2018-03-07] MEDS: metFORMIN 500 MG TAB PO SCH (17:15)
[2018-03-07] MEDS: FERROUS SULFATE 325 MG TAB PO SCH (17:15)
[2018-03-07] MEDS: CHOLECALCIFEROL 1,000 UNIT TAB PO SCH (17:15)
[2018-03-07 17:57] LABS: Glucose,Whole Blood 168 mg/dL (75-99)
[2018-03-07 21:02] LABS: Glucose,Whole Blood 322 mg/dL (75-99)
[2018-03-07] MEDS: MELATONIN 5 MG TABLET PO SCH (21:26)
--- NOTE | 2018-03-07 21:50 | PN ---
PROGRESS NOTE DATE OF SERVICE: 03/07/2018. REASON FOR FOLLOWUP: 1. Pneumonia. 2. Stage II sacral wound present on admission. 3. Right heel stage I pressure ulcer present on admission. INTERVAL HISTORY: The patient is currently afebrile. She seems to be more awake and alert. She is breathing comfortably on room air. The daughter mentioned she was feeling slightly congested this morning, but not bringing up any sputum. No abdominal pain. No diarrhea. EXAMINATION: Blood pressure is 151/60 with a pulse of 83, temperature 97.6. She is 91% on room air. General description is an elderly female lying in bed in no distress. Respiratory system: Unlabored breathing with decreased breath sounds in the base. No wheeze. Heart S1, S2. Regular rate and rhythm. Abdomen soft, no tenderness. LABS: Hemoglobin is 10 with white count 4.7, BUN of 10, creatinine 0.44. Blood culture negative so far. Urine is negative. IMPRESSION/PLAN: 1. The patient admitted to the hospital with fever, concern likely for pneumonia, question of possible gram-negative aspiration. The patient currently covered with Zosyn. Blood cultures have been negative. We will try to obtain a sputum. If the patient continued plan to finish therapy with oral Avelox 400 daily for 5 days. 2. Patient with a stage II sacral wound was present on admission. Local care with Aquacel Silver dressing. Keep the area off the pressure and dry. 3. Right heel stage I pressure, present admission. Local care with heel protectors. Daughter was present at bedside. Questions answered. MMODL / IJN: [id number] /
[2018-03-08] MEDS: IPRATROPIUM-ALBUTEROL 3 ML NEB INHALATION SCH ×7 (00:42→23:50)
[2018-03-08 02:08] LABS: Glucose,Whole Blood 163 mg/dL (75-99)
[2018-03-08] MEDS: PIPERACILLIN-TAZOBACTAM 3.375 GM in DEXTROSE/WATER 1 50ML.BAG IVPB SCH ×3 (04:59→19:59)
[2018-03-08] MEDS: LEVOTHYROXINE 25 MCG TAB PO SCH (06:01)
[2018-03-08] MEDS: ACETAMINOPHEN TAB 500 MG TAB PO SCH ×2 (06:03→19:58)
[2018-03-08 07:53] LABS: Glucose,Whole Blood 167 mg/dL (75-99)
--- NOTE | 2018-03-08 08:04 | P.PN ---
Progress Note - Text Progress Note Date: 03/07/18 This an 87-year-old patient who was recently admitted to [facility] with a questionable fever with unknown etiology. Patient recently underwent a intramedullary nailing of a left distal femur fracture by Dr. Cabello , this was done on 02/22/2018. Patient's been at rehab the last week or so. Patient has remained in a knee immobilizer remain nonweightbearing since the injury. A consult was placed for orthopedic services with regards to her recent surgery to the left lower extremity and for questions regarding removal of the robert. Patient was evaluated at bedside. The knee immobilizer was removed momentarily, incisions are all well-healed. There is no active drainage visualized. There is minimal soft tissue swelling or ecchymosis present. The distal neurovascular exam of the lower extremities intact. I discussed with the nurse and also internal medicine doctor to continue to remove the robert at this time. We plan to see the patient in the outpatient setting in the next week and a half for evaluation, including x-rays of the lower extremity. She will remain nonweightbearing with use the knee immobilizer at this time. We'll be available for any further questions regarding this patient.
[2018-03-08] MEDS: GLIMEPIRIDE 2 MG TAB PO SCH ×2 (08:23→17:19)
[2018-03-08] MEDS: INSULIN ASPART 100 UNIT/ML 1 ML 10 ML VIAL SQ SCH ×4 (08:23→21:33)
[2018-03-08] MEDS: ASPIRIN 81 MG PO SCH (08:23)
[2018-03-08] MEDS: PANTOPRAZOLE 40 MG TABLET PO SCH (08:23)
[2018-03-08] MEDS: HEPARIN SODIUM,PORCINE 5,000 UNIT/ML 1 ML VIAL SQ SCH ×2 (08:23→19:59)
[2018-03-08] MEDS: amLODIPine 5 MG TAB PO SCH (08:24)
[2018-03-08] MEDS: LORATADINE 10 MG TAB PO SCH (08:24)
[2018-03-08] MEDS: LOSARTAN 50 MG TAB PO SCH (08:24)
[2018-03-08] MEDS: FLUTICASONE 50MCG/SPRAY NASAL 16GM EA NOSTRIL SCH (09:09)
[2018-03-08] MEDS: LEVOFLOXACIN 750MG-D5W PMX 750 MG in DEXTROSE/WATER 1 150ML.BAG IVPB SCH (10:26)
[2018-03-08 12:03] LABS: Glucose,Whole Blood 160 mg/dL (75-99)
--- NOTE | 2018-03-08 14:21 | PN ---
PROGRESS NOTE DATE OF SERVICE: 03/08/2018 REASON FOR FOLLOWUP: 1. Pneumonia, possible gram-negative. 2. Sacral wound. 3. Right heel wound. INTERVAL HISTORY: The patient is currently afebrile, slightly congested per the daughter, present at bedside. Patient is slightly sleepy. No nausea, no vomiting. No abdominal pain or any diarrhea. PHYSICAL EXAMINATION: Blood pressure 118/65 with a pulse of 90, temperature 98.6. She is 93% on room air. General description is an elderly female, lying in bed, in no distress. RESPIRATORY SYSTEM: Unlabored breathing, clear to auscultation anteriorly. HEART: S1, S2. Regular rate and rhythm. ABDOMEN: Soft, no tenderness. LABS: Hemoglobin is 10, white count of 4.7, BUN of 10, creatinine 0.44. DIAGNOSTIC IMPRESSION AND PLAN: 1. Patient in the hospital with fever, concern for pneumonia, possible aspiration or gram-negative. Patient is currently on Levaquin and Zosyn, recommending to finish therapy with a short course of oral Avelox 400 daily for another 3-5 days to finish a course of therapy. 2. Patient with a stage II sacral wound. Local wound care with Aquacel Silver dressing, keep the area off the pressure. 3. Stage I right heel wound. Heel protectors, no need for any lotion or to the left heel area. Daughter present at bedside. Her questions were answered. MMODL / IJN: [id number] /
--- NOTE | 2018-03-08 14:47 | P.PN ---
Subjective Progress Note Date: 03/08/18 Principal diagnosis: fevers Patient is an 87-year-old female with a past medical history of diabetes mellitus type 2 on orals with good control, essential hypertension, hypothyroidism, and recent distal femoral fracture who presented to the hospital from [facility] for intermittent fevers. Patient was hospitalized here from 02/21 through 02/28 for fall with leg fracture complicated by pneumonia and Mary UTI. She had been placed on Diflucan and Augmentin on discharge. In the ER she underwent an extensive workup. She was found to be afebrile with a normal white blood cell count. Hemoglobin was 9.6 which was elevated from discharge. Her urine showed possible urinary tract infection but squamous epithelial cells were present. Influenza A and B was negative. Chest x-ray showed possible bilateral infiltrates. She was given a dose of Zosyn and Levaquin and was admitted as observation. Repeat urinalysis done with straight cath which was no longer contaminated specimen and ruled out any signs of urinary tract infection. Urine culture was negative at 24 hours. Infectious disease was consulted who recommended continuing with broad spectrum antibiotics. Patient was unable to produce sputum sample. CXR followed which showed improvement over her course here. She had no documented fevers. She did have morning diaphoresis. We did check a TSH which was normal, B12, and vitamin D all within normal limits. Nocturnal blood sugars were checked which did not show hypoglycemia. Nocturnal blood pressure was checked which does elevate to 190. Norvasc was added which adequately controlled her blood pressures. Patient complain of insomnia and nasal congestion. Recommendations were to start melatonin, Claritin, and Flonase. She is having some situational depression regarding her stay we discussed the possibility of starting an antidepressant but she was unsure if she wanted to start this. I encouraged her to discuss it further at the skilled nursing. We also discussed possible palliative care with her daughter at length. She was seen by orthopedic surgery and her robert were subsequently removed from her recent femoral fracture. She initially was determined stable for discharge on 03/08 however patient did not feel ready for discharge secondary to nasal congestion, allover aches and pains, and insomnia. Patient seen and examined at bedside. He continues to "feel terrible". She states it's due to her inability to move and bear weight. She also reports feeling tired and fatigued. We discussed all of her laboratory results. In the fact that she does not need to continue hospitalization but that'll be sometime until she starts to feel better. I also again offered to start treating her for depression however she declined. She states that her nasal congestion and insomnia are improved after initiation of melatonin, Claritin, and Flonase. Objective - Vital Signs Vital signs: Vital Signs Temp 99.6 F 03/08/18 07:00 Pulse 88 03/08/18 11:01 Resp 20 03/08/18 07:00 BP 188/65 03/08/18 07:00 Pulse Ox 93 L 03/08/18 07:00 Intake & Output 03/07/18 03/08/18 03/08/18 18:59 06:59 18:59 Intake Total 500 Balance 500 Weight 45.359 kg Intake: Oral 500 Other: Voiding Method Incontinent Incontinent Incontinent # Voids 3 3 # Bowel Movements 0 - Exam General: non toxic, no distress, appears at stated age Derm: Right heel with area of bogginess, no discharge, no warmth, blister intact , warm, dry, left knee with midline healing incision no warmth, erythema, drainage Head: atraumatic, normocephalic, symmetric Eyes: EOMI, no lid lag, anicteric sclera Mouth: no lip lesion, mucus membranes moist Cardiovascular: S1S2 reg, no murmur, positive posterior tibial pulse bilateral, Lungs: Decreased breath sounds bilateral bases, no rhonchi, no rales , no accessory muscle use Abdominal: soft, nontender to palpation, no guarding, no appreciable organomegaly Ext: no gross muscle atrophy, no edema, no contractures Neuro: CN II-XI grossly intact, no focal neuro deficits Psych: Alert, oriented, flat affect - Labs CBC & Chem 7: 03/07/18 08:09 03/07/18 08:09 Labs: Abnormal Lab Results - Last 24 Hours (Table) 03/07/18 03/07/18 03/08/18 Range/Units 17:38 20:45 01:57 POC Glucose (mg/dL) 168 H 322 H 163 H (75-99) mg/dL 03/08/18 03/08/18 Range/Units 07:39 11:57 POC Glucose (mg/dL) 167 H 160 H (75-99) mg/dL Microbiology - Last 24 Hours (Table) 03/05/18 08:02 Blood Culture - Preliminary Blood No Growth after 72 hours Assessment and Plan Assessment: Pneumonia, bilateral -Appears to be responding appropriately to treatment therapy. Infectious disease recommendations appreciated. Patient has been afebrile without white blood cell count this admission it appears that her pneumonia is well treated. -A urinary tract infection ruled out with negative culture and negative repeat UA via straight cath -Anticipate discharge back to [facility] in a.m. Excessive nighttime diaphoresis - hypoglycemia ruled out - infection imptoving - no true fevers HTN urgency - norvasc added, BP improved. - follow BP Diabetes mellitus type 2 -Continue with metformin and Amaryl skin accurate assessment of possible nocturnal hypoglycemia -Sliding-scale insulin -Hemoglobin A1c 5.6 Generalized weakness -TSH, B12, and vitamin D levels normal -Continue with PT and OT Acute blood loss anemia related to recent surgery -Improving -No need for further inpatient testing -No need for iron therapy Recent femoral fracture -Consult ortho recs appreciated. [place] removed 03/07 Stage II sacral ulcer -Infectious disease recommendations appreciated. Order placed for Aquacell Silver to sacral area change every 48 hours Left ear laceration, resolved, sutures removed. DVT prophylaxis: Heparin Discussed with: Patient, nursing Anticipated discharge: in AM Anticipated discharge place: Return to [facility] A total of 35 minutes was spent on the care of this complex patient more than 50 % of the time was spent in counseling and care coordination.
[2018-03-08 17:09] LABS: Glucose,Whole Blood 173 mg/dL (75-99)
[2018-03-08] MEDS: metFORMIN 500 MG TAB PO SCH (17:18)
[2018-03-08] MEDS: MULTIVITAMINS, THERA 1 EACH TAB PO SCH (17:18)
[2018-03-08] MEDS: FERROUS SULFATE 325 MG TAB PO SCH (17:19)
[2018-03-08] MEDS: CHOLECALCIFEROL 1,000 UNIT TAB PO SCH (17:19)
[2018-03-08] MEDS: HYDROcodone/APAP 5-325MG 1 EACH TAB PO PRN (17:41)
[2018-03-08] MEDS: MELATONIN 5 MG TABLET PO SCH (19:58)
[2018-03-08 21:33] LABS: Glucose,Whole Blood 130 mg/dL (75-99)
[2018-03-09 02:13] LABS: Glucose,Whole Blood 179 mg/dL (75-99)
[2018-03-09] MEDS: IPRATROPIUM-ALBUTEROL 3 ML NEB INHALATION SCH ×3 (03:07→11:22)
[2018-03-09] MEDS: PIPERACILLIN-TAZOBACTAM 3.375 GM in DEXTROSE/WATER 1 50ML.BAG IVPB SCH ×2 (05:05→11:45)
[2018-03-09] MEDS: ACETAMINOPHEN TAB 500 MG TAB PO SCH (06:05)
[2018-03-09] MEDS: LEVOTHYROXINE 25 MCG TAB PO SCH (06:05)
[2018-03-09 07:28] LABS: Glucose,Whole Blood 153 mg/dL (75-99)
[2018-03-09] MEDS: GLIMEPIRIDE 2 MG TAB PO SCH (07:29)
[2018-03-09] MEDS: INSULIN ASPART 100 UNIT/ML 1 ML 10 ML VIAL SQ SCH ×2 (07:29→12:50)
[2018-03-09] MEDS: HEPARIN SODIUM,PORCINE 5,000 UNIT/ML 1 ML VIAL SQ SCH (07:29)
[2018-03-09] MEDS: FLUTICASONE 50MCG/SPRAY NASAL 16GM EA NOSTRIL SCH (07:29)
[2018-03-09] MEDS: amLODIPine 5 MG TAB PO SCH (07:30)
[2018-03-09] MEDS: LOSARTAN 50 MG TAB PO SCH (07:30)
[2018-03-09] MEDS: LORATADINE 10 MG TAB PO SCH (07:30)
[2018-03-09] MEDS: ASPIRIN 81 MG PO SCH (07:30)
[2018-03-09] MEDS: PANTOPRAZOLE 40 MG TABLET PO SCH (07:30)
[2018-03-09] MEDS ORDERED: LEVOFLOXACIN 750 MG TAB PO SCH (09:00)
[2018-03-09] MEDS: HYDROcodone/APAP 5-325MG 1 EACH TAB PO PRN (09:41)
[2018-03-09 12:04] LABS: Glucose,Whole Blood 133 mg/dL (75-99)
[2018-03-09] MEDS ORDERED: ACETAMINOPHEN TAB 500 MG TAB PO PRN (14:01)
--- NOTE | 2018-03-09 15:07 | PN ---
PROGRESS NOTE DATE OF SERVICE: 03/09/2018 REASON FOR FOLLOW UP: 1. Pneumonia, possible gram-negative. 2. Stage II sacral wound. 3. Stage I right heel wound. INTERVAL HISTORY: The patient is afebrile. She seemed to be more awake and alert today. She is breathing comfortably. Denies significant chest pain, occasional cough. No abdominal pain or any diarrhea. PHYSICAL EXAMINATION: Blood pressure 148/63 with a pulse of 84, temperature 98.2, she is 93% on room air. General description is an elderly female, up in the bed in no distress. RESPIRATORY SYSTEM: Unlabored breathing. Decreased breath sounds at bases, no wheeze. HEART: S1, S2. Regular rate and rhythm. ABDOMEN: Soft, no tenderness. EXTREMITIES: No edema of the feet. LABS: No new labs have been obtained today. DIAGNOSTIC IMPRESSION/PLAN: 1. Patient admitted to the hospital with fever, concern for likely pneumonia, left lower lobe possible gram-negative. The patient has been admitted to the hospital, placed on Zosyn to finish therapy with short course of oral Levaquin. 2. Stage II sacral wound. Local wound care with Aquacel dressing, keep the area off the pressure. 3. Right heel pressure ulcer stage I. Local care with heel protector. MMODL / IJN: [id number] /
--- NOTE | 2018-03-09 15:14 | P.DS ---
Providers Date of admission: 03/06/18 13:44 Expected date of discharge: 03/09/18 Attending physician: Pavan Damian MD Consults: 03/05/18 11:37 Consult Physician Routine Consulting Provider: Isaiah Newell Consult Reason/Comments: Antibiotic management Do you want consulting provider notified?: Yes 03/06/18 12:25 Consult Physician Routine Consulting Provider: Pedro Cabello Consult Reason/Comments: ? Okay to remove robert from recent femural fracture surgery Do you want consulting provider notified?: Yes Primary care physician: Danial Dey MD Hospital Course: Discharge Diagnosis: 1. Resolving pneumonia 2. Completely resolved urinary tract infection 3. Hypertensive urgency 4. Generalized weakness 5. Dysphoric mood disorder, situational depression 6. Diabetes mellitus type 2 with A1c 5.6 7. Excessive nighttime diaphoresis, hypoglycemia ruled out patient with significant nocturnal hypertension 8. Acute blood loss anemia 7. recent femoral fracture 8. stage II sacral decubitus ulcer, present on admission 9. Hypertension 10. Left ear laceration 11. Sinusitis Hospital Course: Patient is an 87-year-old female with a past medical history of diabetes mellitus type 2 on orals with good control, essential hypertension, hypothyroidism, and recent distal femoral fracture who presented to the hospital from [facility] for intermittent fevers. Patient was hospitalized here from 1009 through 1016 for fall with leg fracture complicated by pneumonia and Mary UTI. She had been placed on Diflucan and Augmentin on discharge. In the ER she underwent an extensive workup. She was found to be afebrile with a normal white blood cell count. Hemoglobin was 9.6 which was elevated from discharge. Her urine showed possible urinary tract infection but squamous epithelial cells were present. Influenza A and B was negative. Chest x-ray showed possible bilateral infiltrates. She was given a dose of Zosyn and Levaquin and was admitted as observation. Repeat urinalysis done with straight cath which was no longer contaminated specimen ruled out any signs of urinary tract infection. Urine culture was negative at 24 hours. Infectious disease was consulted who recommended continuing with broad spectrum antibiotics. Patient unable to produce sputum sample. CXR followed which showed improvement over her course here. She had no documented fevers. She did have morning diaphoresis. We did check a TSH which was normal, B12, and vitamin D all within normal limits. Nocturnal blood sugars were checked which did not show hypoglycemia. Nocturnal blood pressure was checked which does elevate to 190. Norvasc was added which adequately controlled her blood pressures. Patient complain of insomnia and nasal congestion. Melatonin, Claritin, and Flonase were started with good results. She is having some situational depression regarding her stay we discussed the possibility of starting an antidepressant but she was unsure if she wanted to start this. I encouraged her to discuss it further at the assisted. We also discussed possible palliative care with her daughter at length.She was seen by orthopedic surgery and her robert were removed. She needs to continue to be non weight baring and remain in immobilizer. She was determined stable for return to [facility] Patient seen and examined at bedside. Nasal stuffiness improved. Was able to sleep 5 hours last night. Has some back pain. Has not been up and out of bed. States she has not wanted to take any thing more than the [place] she is already prescribed. Still does not want to start on anything for depression. Vital signs reviewed and stable. General: non toxic, no distress, appears at stated age Derm: warm, dry Head: atraumatic, normocephalic, symmetric Eyes: EOMI, no lid lag, anicteric sclera Mouth: no lip lesion, mucus membranes moist Cardiovascular: S1S2 reg, no murmur, positive posterior tibial pulse bilateral, Lungs: Decreased breath sounds bilateral bases, no rhonchi, no rales , no accessory muscle use Abdominal: soft, nontender to palpation, no guarding, no appreciable organomegaly Ext: Atrophy of hip flexors on the left, no edema, no contractures Neuro: CN II-XI grossly intact, no focal neuro deficits Psych: Alert, oriented, appropriate affect A total of 35 minutes of time were spent preparing this complex discharge summary . Pertinent Studies: Chest [id number] pneumonia, compared with prior chest x-ray and appears to be improvement as reviewed by myself Patient Condition at Discharge: Stable Plan - Discharge Summary Discharge Rx Participant: No New Discharge Prescriptions: New Albuterol Inhaler [Ventolin Hfa Inhaler] 1 - 2 puff INHALATION RT-Q6H PRN #1 inhaler PRN Reason: Shortness Of Breath Or Wheezing amLODIPine [Norvasc] 5 mg PO HS tab Fluticasone Nasal [place] [Flonase Nasal [place]] 2 spray EA NOSTRIL DAILY spr Levofloxacin [Levaquin] 750 mg PO DAILY 3 Days #3 tab Melatonin 5 mg PO HS tablet Continue Aspirin 81 mg PO DAILY@0800 Multivitamins, Thera [Multivitamin (formulary)] 1 tab PO DAILY@1700 Losartan Potassium [Cozaar] 100 mg PO DAILY@0800 Glimepiride [Amaryl] 2 mg PO BID@0800,1700 Levothyroxine Sodium [Synthroid] 25 mcg PO DAILY@0600 Cholecalciferol [Vitamin D3] 1,000 unit PO DAILY@1700 Acetaminophen Tab [Tylenol] 500 mg PO BID@0700,2100 Heparin Sodium,Porcine [Heparin Sodium] 5,000 unit SQ Q12HR #60 vial Pantoprazole [Protonix] 40 mg PO AC-BRKFST tablet. Bisacodyl [Dulcolax] 10 mg RECTAL DAILY PRN PRN Reason: Constipation Ferrous Sulfate [Iron (65 MG Elemental)] 325 mg PO DAILY@1700 Glucerna Shake 120 ml PO TID-W/MEALS Magnesium Hydroxide [Milk of Magnesia] 2,400 mg PO DAILY PRN PRN Reason: Constipation metFORMIN HCL [Glucophage] 500 mg PO DAILY@1700 Na Phos,M-B/Na Phos,Di-Ba [Fleet Adult] 133 ml RECTAL DAILY PRN PRN Reason: Constipation Hydrocodone/Acetaminophen [[place] 5-325] 1 tab PO Q6HR PRN #21 tablet PRN Reason: Pain Discontinued Macy-3 Fatty Acids/Fish Oil [Fish Oil 1,000 mg Softgel] 1 cap PO BID@0800, 1700 Amoxicillin/Potassium Clav [Augmentin 875-125 Tablet] 1 tab PO BID 5 Days # 10 tab Insulin Aspart [NovoLOG (formulary)] See Protocol SQ ACHS Discharge Medication List Acetaminophen Tab [Tylenol] 500 mg PO BID@0700,2100 12/22/17 [History] Aspirin 81 mg PO DAILY@0800 12/22/17 [History] Cholecalciferol [Vitamin D3] 1,000 unit PO DAILY@1700 12/22/17 [History] Glimepiride [Amaryl] 2 mg PO BID@0800,1700 12/22/17 [History] Levothyroxine Sodium [Synthroid] 25 mcg PO DAILY@0600 12/22/17 [History] Losartan Potassium [Cozaar] 100 mg PO DAILY@0800 12/22/17 [History] Multivitamins, Thera [Multivitamin (formulary)] 1 tab PO DAILY@1700 12/22/17 [ History] Heparin Sodium,Porcine [Heparin Sodium] 5,000 unit SQ Q12HR #60 vial 02/26/18 [ Rx] Pantoprazole [Protonix] 40 mg PO AC-BRKFST tablet. 02/27/18 [Rx] Bisacodyl [Dulcolax] 10 mg RECTAL DAILY PRN 03/05/18 [History] Ferrous Sulfate [Iron (65 MG Elemental)] 325 mg PO DAILY@1700 03/05/18 [History] Glucerna Shake 120 ml PO TID-W/MEALS 03/05/18 [History] Magnesium Hydroxide [Milk of Magnesia] 2,400 mg PO DAILY PRN 03/05/18 [History] Na Phos,M-B/Na Phos,Di-Ba [Fleet Adult] 133 ml RECTAL DAILY PRN 03/05/18 [ History] metFORMIN HCL [Glucophage] 500 mg PO DAILY@1700 03/05/18 [History] Albuterol Inhaler [Ventolin Hfa Inhaler] 1 - 2 puff INHALATION RT-Q6H PRN #1 inhaler 03/07/18 [Rx] Fluticasone Nasal [place] [Flonase Nasal [place]] 2 spray EA NOSTRIL DAILY spr [Rx] Hydrocodone/Acetaminophen [[place] 5-325] 1 tab PO Q6HR PRN #21 tablet 03/07/18 [ Rx] Levofloxacin [Levaquin] 750 mg PO DAILY 3 Days #3 tab 03/07/18 [Rx] Melatonin 5 mg PO HS tablet 03/07/18 [Rx] amLODIPine [Norvasc] 5 mg PO HS tab 03/07/18 [Rx] Follow up Appointment(s)/Referral(s): Danial Dey MD [Primary Care Provider] - 1-2 days Tex Grijalva, [NON-STAFF] - As Needed Kameron aDwson PAC [PHYSICIAN GRAPHICS MANAGER] - 1 Week Activity/Diet/Wound Care/Special Instructions: Carb consistent diet Non weight bearing left lower extremity Hemoglobin A1C is 5.6 could consider coming off Glimepiride. Check Vitals 3 times daily had high night time blood pressure. Consider Palliative care if available at facility. Repeat CXR in 1 week DX: pneumonia to ensure clearing. Aquacell silver dressing to sacral wound q48 hours. Orthopedic Discharge Instructions: 1. Wound care and infection precautions, keep incision dry and covered while showering, no lotions, creams, moisturizers. No soaking, pools, hot tubs. Do not scrub over incision. 2. Nonweightbearing left lower extremity 3. Ice and elevate when necessary. Do not exceed 20 minutes per hour with ice pack. 4. Utilize compression sleeve until seen at first follow up appointment. 5. Pain meds and anticoagulants per prescription. 6. Pain medication has potential to cause constipation. Increase oral fluid and fiber intake. Contact primary care provider if you have not had a bowel movement within 48 hours after discharge. 7. No anti-inflammatory medication until discussed at first post operative visit, this including Motrin, Aleve, Mobic, Diclofenac. Discharge Disposition: TRANSFER TO SNF/ECF
[2018-03-09 16:19] VITALS: BP 157/60; PULSE 90; RESP 16; TEMP 99
[2018-03-09 17:09] LABS: Glucose,Whole Blood 175 mg/dL (75-99)
--- NOTE | 2018-03-13 14:12 | CDI ---
Last Revision, April 2017 Documentation Clarification Form Date: 03/13/18 From: Humera Joselito Dafne Campo, Staff Scientist Hours-8:30 am & 5 pm M-F Admit Date: 03/06/2018 1:44:00 PM Patient Name: Maddie Young Visit Number: [id number] Discharge Date: 03/09/18 ATTENTION: The Clinical Documentation Specialists (CDI) and [facility] Coding Staff appreciate your assistance in clarifying documentation. Please respond to the clarification below the line at the bottom and electronically sign. The CDI & [facility] Coding staff will review the response and follow-up if needed. Please note: Queries are made part of the Legal Health Record. If you have any questions, please contact the author of this message via ITS. Grace Leo, DO Conflicting documentation has been found in the medical record. Consult physician documented in the consult and PNs 03/07 & 1025 - possible aspiraton pneumonitis or gram negatice. History/Risk Factors: pressure ulcer sarcal stage 2 and pressure ulcer right heel stage 1 Clinical Indicators: T 101 at NH, P-82, R-16-24, WBC 5.1, neutrophils -3.7, lactic acid 0.9, Treatment: IV Zosyn, IV Levaquin, oral Levaquin In your opinion what is the most clinically appropriate diagnosis for this patient? Gram negative pneumonia Aspiration pneumonia Pneumonia Other explanation of clinical findings Unable to determine (no explanation for clinical findings) Please continue to document in your progress notes and discharge summary in order to capture severity of illness and risk of mortality. Include clinical findings that support your diagnosis. Pneumonia, possible gram negative MTDD
== END 2018-03-09 17:23 | DRG 178 ==
LOC: EC 07:36 → INTOOBSV 10:21 → 4MS4W 10:21 → OBSVTOIN 03-06 13:44
PROVIDERS: ADMIT Family Medicine; ATTEND Family Medicine
DX: J15.6 Pneumonia due to other Gram-negative bacteria (principal); D62 Acute posthemorrhagic anemia; L89.152 Pressure ulcer of sacral region, stage 2; L89.611 Pressure ulcer of right heel, stage 1; E11.65 Type 2 diabetes mellitus with hyperglycemia; G47.00 Insomnia, unspecified; I16.0 Hypertensive urgency; F43.21 Adjustment disorder with depressed mood; I10 Essential (primary) hypertension; E03.9 Hypothyroidism, unspecified; K21.9 Gastro-esophageal reflux disease without esophagitis; D50.9 Iron deficiency anemia, unspecified; R32 Unspecified urinary incontinence; S01.312D Laceration without foreign body of left ear, subsequent encounter; S72.402D Unspecified fracture of lower end of left femur, subsequent encounter for closed fracture with routine healing; J32.9 Chronic sinusitis, unspecified; M19.91 Primary osteoarthritis, unspecified site; R61 Generalized hyperhidrosis; Z79.82 Long term (current) use of aspirin; Z79.3 Long term (current) use of hormonal contraceptives; Z79.4 Long term (current) use of insulin; Z79.899 Other long term (current) drug therapy; Z90.49 Acquired absence of other specified parts of digestive tract; Z87.01 Personal history of pneumonia (recurrent); Z87.440 Personal history of urinary (tract) infections; Z96.653 Presence of artificial knee joint, bilateral; Z98.49 Cataract extraction status, unspecified eye; Z88.5 Allergy status to narcotic agent; Z88.2 Allergy status to sulfonamides
CPT/HCPCS: 36415; 71045; 71046; 80048; 80053; 81001; 81003; 82306; 82607; 83036; 83605; 84443; 84484; 85025; 85027; 85610; 85730; 87040; 87086; 87502; 93005; 94640; 94760; 96361; 96365; 99285